=== PATIENT | female | born 1945 | race Caucasian/White ===

== ENCOUNTER 2018-01-25 11:38 | Outpatient (CLI) | payer MEDICARE, MEDICAID ==
--- NOTE | 2018-01-25 13:55 | ULT ---
VENOUS DOPPLER ULTRASOUND OF THE RIGHT LOWER EXTREMITY: TECHNIQUE: Hill-scale with color-flow and spectral Doppler imaging of the deep venous system of the right lower extremity is performed. FINDINGS: There is good flow, compression, and augmentation noted in the right common femoral, femoral, deep fe moral, popliteal, posterior tibial, and greater saphenous veins. IMPRESSION: No evidence of deep venous thrombosis in the right lower extremity. POS: [facility]
== END 2018-01-25 11:39 | disposition home or self-care (01) ==
LOC: ULT 11:38
PROVIDERS: ATTEND Family Medicine
DX: M79.604 Pain in right leg (principal); M79.661 Pain in right lower leg

== ENCOUNTER 2018-02-09 09:32 | Outpatient (CLI) | payer MEDICARE, MEDICAID ==
--- NOTE | 2018-02-09 12:30 | MRI ---
RIGHT TIBIA AND FIBULA MRI WITHOUT CONTRAST: Date: 02/09/18 HISTORY: Calf swelling. No blood clots. COMPARISON: Ultrasound venous dated 01/25/18. FINDINGS: The patient was unable to receive contrast due to her GFR being less than 30. Bones: No fracture. No malalignment. No periosteal new bone formation. No periosteal inflammation. The medul edvin signal is normal. Cortical signal is normal. No fracture. No malalignment. Muscles: There is normal appearance of the intermuscular fat and intramuscular fat. No evidence of loss of the normal intermuscular fat signal to suggest a compartment syndrome. Soft Tissues: There is extensive circumferential soft tissue swelling suggesting cellulitis or lymphedema. IMPRESSION: Extensive superficial soft tissue swelling concerning for cellulitis or lymphedema. No dilatation of the superficial draining veins. No evidence for deep fasciitis or swelling. POS: [facility]
== END 2018-02-09 09:33 | disposition home or self-care (01) ==
LOC: MRI 09:32
PROVIDERS: ATTEND Family Medicine
DX: M79.661 Pain in right lower leg (principal); M79.89 Other specified soft tissue disorders
CPT/HCPCS: 82565

== ENCOUNTER 2018-12-10 12:39 | Outpatient (CLI) | payer MEDICARE, MEDICAID ==
--- NOTE | 2018-12-10 14:28 | ULT ---
LEFT LOWER EXTREMITY VENOUS DUPLEX ULTRASOUND WITH COLOR AND SPECTRAL DOPPLER IMAGING: HISTORY: Left leg swelling and edema. FINDINGS: Exam performed from groin to ankle including visualization of the greater saphenous, common femoral, superficial femoral, or profunda femoral, popliteal, trifurcation, and posterior tibial vein regions. There is phasic flow at all levels with normal compressibility and normal augmentation. No intralu fritz thrombus. IMPRESSION: No evidence for deep venous thrombosis. POS: [facility]
== END 2018-12-10 12:40 | disposition home or self-care (01) ==
LOC: BICULT 12:39
PROVIDERS: ATTEND Family Medicine
DX: M79.89 Other specified soft tissue disorders (principal)

== ENCOUNTER 2019-02-27 22:16 | Emergency (ER) | payer MEDICARE, MEDICAID ==
[2019-02-27 23:15] LABS: #Eosinphils 0.1 thou/uL (0.0-0.7); #Lymphocytes 1.6 thou/uL (1.20-3.40); #Monocytes 0.6 thou/uL (0.11-0.59); #Neutrophils 2.6 thou/uL (1.40-6.50); %Basophils 0.8 % (0.0-1.0); %Eosinophils 2.3 % (0.0-10.0); %Lymphocytes 32.4 % (21.0-51.0); %Monocytes 11.4 % (0.0-10.0); %Neutrophils 53.2 % (42.0-75.0); Hemoglobin 14.2 g/dL (12.0-16.0); Mean Corpuscular HGB CONC 32.6 g/dL (32.0-36.0); Mean Corpuscular Hemoglobin 33.4 pg (27.0-31.0); Mean Platelet Volume 6.7 fL (7.4-10.4); Platelet Count 182 thou/uL (130-400); RBC Distribution Width 13.4 % (11.5-14.5); Red Blood Cell (RBC) Count 4.25 mill/uL (4.20-5.40); White Blood Cell (WBC) Count 4.9 thou/uL (4.8-10.8)
[2019-02-27 23:27] LABS: Phosphorus 3.2 mg/dL (2.3-4.7)
[2019-02-27 23:29] LABS: ALT (SGPT) Less than 7 U/L (8-55); AST (SGOT) 9 U/L (5-34); Albumin 3.5 g/dL (3.4-4.8); Alkaline Phosphatase 49 U/L (40-150); Anion Gap 14 mmol/L (10-20); BUN (Urea Nitrogen) 15 mg/dL (9.8-20.1); Bilirubin, Total 0.3 mg/dL (0.2-1.2); Calc. Creatinine Clearance 0 mL/min (70-130); Calcium 9.5 mg/dL (7.8-10.44); Carbon Dioxide 28 mmol/L (23-31); Chloride 102 mmol/L (98-107); Estimated GFR-MDRD 35; Globulin 3.2 g/dL (2.4-3.5); Glucose 86 mg/dL (83-110); Magnesium 1.9 mg/dL (1.6-2.6); Potassium 4.3 mmol/L (3.5-5.1); Protein, Total 6.7 g/dL (6.0-8.3); Sodium 140 mmol/L (136-145)
--- NOTE | 2019-02-27 23:33 | RAD ---
XR Chest Pa Lat STANDARD History: Chest palpitations Comparison: Radiograph 2015 Findings: Heart size is enlarged. No pneumothorax or effusion. Multiple lumbar spine compression defo rmities containing cement. Scarring in the lung apices. Calcified granuloma left upper lobe. Remote left rib fractures. Impression: Chronic findings. No acute intrathoracic abnormality.
== END 2019-02-28 00:31 | disposition home or self-care (01) ==
LOC: ERS 22:16
DX: R00.2 Palpitations (principal); I10 Essential (primary) hypertension; G43.909 Migraine, unspecified, not intractable, without status migrainosus; I25.10 Atherosclerotic heart disease of native coronary artery without angina pectoris; K21.9 Gastro-esophageal reflux disease without esophagitis; J44.9 Chronic obstructive pulmonary disease, unspecified; F31.9 Bipolar disorder, unspecified; F17.210 Nicotine dependence, cigarettes, uncomplicated; Z79.899 Other long term (current) drug therapy; Z79.01 Long term (current) use of anticoagulants; Z79.51 Long term (current) use of inhaled steroids; Z86.73 Personal history of transient ischemic attack (TIA), and cerebral infarction without residual deficits
CPT/HCPCS: 36415; 71046; 80053; 83735; 83880; 84100; 84484; 85025; 93005

== ENCOUNTER 2019-03-04 17:16 | Emergency (ER) | payer MEDICARE, MEDICAID ==
--- NOTE | 2019-03-04 18:03 | CT ---
CT BRAIN WITHOUT CONTRAST: 03/04/19 HISTORY: Unwitnessed fall, altered mental status, laceration to left eye. FINDINGS: Comparison made to exam of 02/17/14. Changes of cortical atrophy, chronic small vessel ischemic disease and old infarctions in the right f rontal and posterior parietal lobes and old infarction in the basal ganglia are again seen. The ventr icular size is appropriate and the basilar cisterns patent. No evidence of acute infarct, hemorrhage, midline shift or abnormal extra-axial fluid collections seen. The bony calvarium is intact. The visu alized paranasal sinuses and mastoid air cells are well aerated. IMPRESSION: Chronic changes. No CT evidence of acute intracranial process. POS: [facility]
[2019-03-04 18:31] LABS: #Eosinphils 0.1 thou/uL (0.0-0.7); #Lymphocytes 1.2 thou/uL (1.20-3.40); #Monocytes 0.5 thou/uL (0.11-0.59); #Neutrophils 3.3 thou/uL (1.40-6.50); %Basophils 0.9 % (0.0-1.0); %Eosinophils 1.7 % (0.0-10.0); %Lymphocytes 24.2 % (21.0-51.0); %Monocytes 9.2 % (0.0-10.0); %Neutrophils 64.1 % (42.0-75.0); Hemoglobin 15.2 g/dL (12.0-16.0); Mean Corpuscular HGB CONC 32.7 g/dL (32.0-36.0); Mean Corpuscular Hemoglobin 33.2 pg (27.0-31.0); Mean Platelet Volume 7.1 fL (7.4-10.4); Platelet Count 168 thou/uL (130-400); Red Blood Cell (RBC) Count 4.58 mill/uL (4.20-5.40); White Blood Cell (WBC) Count 5.1 thou/uL (4.8-10.8)
[2019-03-04 18:35] LABS: Bilirubin Negative (Negative); Blood, Urine Negative (Negative); Clarity Clear (Clear); Glucose, Urine (Dipstick) Normal (Negative); Leukocyte Negative Leu/uL (Negative); Nitrite Negative (Negative); Protein, Urine (Dipstick) 70 mg/dL (Neg-Trace); RBC/HPF 0-3 HPF (0-3); Squamous Epithelial 0-3 HPF (0-3); Urobilinogen Normal mg/dL (Less than 2); WBC/HPF 0-3 HPF (0-3)
[2019-03-04 18:44] LABS: Bacteria/HPF 1+ HPF (None Seen)
[2019-03-04 18:53] LABS: ALT (SGPT) Less than 7 U/L (8-55); AST (SGOT) 10 U/L (5-34); Albumin 3.6 g/dL (3.4-4.8); Alkaline Phosphatase 46 U/L (40-150); Anion Gap 14 mmol/L (10-20); BUN (Urea Nitrogen) 18 mg/dL (9.8-20.1); Bilirubin, Total 0.4 mg/dL (0.2-1.2); Calc. Creatinine Clearance 0 mL/min (70-130); Calcium 8.9 mg/dL (7.8-10.44); Carbon Dioxide 24 mmol/L (23-31); Chloride 101 mmol/L (98-107); Estimated GFR-MDRD 29; Globulin 2.8 g/dL (2.4-3.5); Glucose 107 mg/dL (83-110); Potassium 4.2 mmol/L (3.5-5.1); Protein, Total 6.4 g/dL (6.0-8.3); Sodium 135 mmol/L (136-145)
[2019-03-04] MEDS ORDERED: traMADol HCl 50 MG TAB ONE (20:42)
== END 2019-03-04 22:25 | disposition home or self-care (01) ==
LOC: ERS 17:16
DX: S00.12XA Contusion of left eyelid and periocular area, initial encounter (principal); G43.909 Migraine, unspecified, not intractable, without status migrainosus; I25.10 Atherosclerotic heart disease of native coronary artery without angina pectoris; K21.9 Gastro-esophageal reflux disease without esophagitis; I10 Essential (primary) hypertension; Z86.73 Personal history of transient ischemic attack (TIA), and cerebral infarction without residual deficits; J44.9 Chronic obstructive pulmonary disease, unspecified; F31.9 Bipolar disorder, unspecified; F17.210 Nicotine dependence, cigarettes, uncomplicated; W18.30XA Fall on same level, unspecified, initial encounter
CPT/HCPCS: 36415; 51701; 70450; 80053; 81003; 81015; 84484; 85025; 93005; A4353

== ENCOUNTER 2019-06-12 19:33 | Inpatient (IN) | payer MEDICARE, MEDICAID ==
--- NOTE | 2019-06-12 20:14 | RAD ---
XR Chest 1 View Portable History: Chest pain Comparison: Radiograph April 01, 2019 Findings: Heart size is enlarged. Exam is limited due to rightward patient rotation. Mild vascular ca lcifications. Old left rib fractures. Impression: Cardiomegaly otherwise unremarkable exam.
[2019-06-12 20:30] LABS: Hemoglobin 13.8 g/dL (12.0-16.0); Mean Corpuscular HGB CONC 32.9 g/dL (32.0-36.0); Mean Corpuscular Hemoglobin 33.6 pg (27.0-31.0); Mean Platelet Volume 6.6 fL (7.4-10.4); Platelet Count 170 thou/uL (130-400); RBC Distribution Width 14.2 % (11.5-14.5); Red Blood Cell (RBC) Count 4.11 mill/uL (4.20-5.40); White Blood Cell (WBC) Count 6.1 thou/uL (4.8-10.8)
[2019-06-12 20:55] LABS: ALT (SGPT) Less than 7 U/L (8-55); AST (SGOT) 10 U/L (5-34); Albumin 3.4 g/dL (3.4-4.8); Alkaline Phosphatase 48 U/L (40-110); Anion Gap 16 mmol/L (10-20); BUN (Urea Nitrogen) 20 mg/dL (9.8-20.1); Bilirubin, Total 0.3 mg/dL (0.2-1.2); Calc. Creatinine Clearance 0 mL/min (70-130); Carbon Dioxide 24 mmol/L (23-31); Chloride 103 mmol/L (98-107); Estimated GFR-MDRD 35; Globulin 3.1 g/dL (2.4-3.5); Glucose 83 mg/dL (83-110); Potassium 4.5 mmol/L (3.5-5.1); Protein, Total 6.5 g/dL (6.0-8.3); Sodium 138 mmol/L (136-145)
[2019-06-12 20:56] LABS: Band 13 % (5-11); Eosinophils 3 % (0-10); Lymphocytes 26 % (21-51); MDiff Complete? YES; Macrocytosis SLIGHT = 6-15 cells (100X) (0-5/hpf); Monocytes 5 % (0-10); Neutrophil 35 % (42-75); Platelet Morphology Comment Appears Adequate; Polychromasia SLIGHT = 2-3 cells (100X) (0-2/hpf); Reactive Lymphocytes 18 % (0-10)
[2019-06-12] MEDS ORDERED: Aspirin Chewable 81 MG TAB ONE (21:12)
[2019-06-12 21:21] LABS: CKMB 1.5 ng/mL (0-6.6)
[2019-06-12] MEDS ORDERED: Enoxaparin Sodium 80 MG/0.8 ML SYRINGE ONE (21:52)
[2019-06-13] MEDS ORDERED: hydrALAZINE 20 MG/ML VIAL SLOW IVP PRN (03:13)
[2019-06-13] MEDS ORDERED: Ipratropium Bromide 2.5 ml Neb NEB PRN (03:13)
[2019-06-13] MEDS ORDERED: Albuterol Sulfate 2.5 mg/3 ml Neb NEB PRN (03:13)
[2019-06-13 03:39] LABS: Troponin I 0.099 ng/mL (< 0.028)
--- NOTE | 2019-06-13 04:07 | HP ---
PRIMARY CARE PHYSICIAN: Dr. Arciniega. CHIEF COMPLAINT: Pain in the left side of her chest. HISTORY OF PRESENT ILLNESS: Ms. Dimas is a pleasant 73-year-old female, who has a history of hypertension and peripheral vascular disease. She came to the emergency room, because she was afraid about a mass in her breast. She says that she noticed a pain more or less just in the axillary region on the left side. She says it kind of shot went through to the middle part of her chest. Sometimes she describes it as a pain and sometimes she does not. She says it was kind of a pulling-like sensation, and she denies any trauma. No falls to the area. She does not feel like it is the pain that she had when she had to have bypass surgery about 4 to 5 years ago. At that time, her only symptom was shortness of breath. She denies any nausea, no vomiting, no diaphoresis. She has had a cough off and on, but otherwise no complaints. She says that Dr. Arciniega had set up a mammogram for her which would be coming up in the next couple of weeks, but when she had this pain, she decided to come in. Her last mammogram she says was "years ago", and she has not had any problems with the heart in fact until in her mind was just a few months ago as she did not consider having the bypass surgery "heart problem". With regard to the review of systems, all systems were reviewed and were negative except for that mentioned in the history of present illness. 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 PAST SURGICAL HISTORY: She has had an appendectomy, bypass surgery, tonsillectomy, carotid endarterectomy, and stent placed. She has an arterial stent in her left lower extremity and an esophageal dilatation and a Phillip fundoplication. SOCIAL HISTORY: She lives in assisted living. She smokes a pack a day for at least 50 years. She says that she enjoys smoking and does not intend to quit. She denies any alcohol use or drug use. Her code status is full code. However, she would not want to be on life support for a long time, and she has not designated a surrogate decision maker. She says she has not seen her daughter or grandchildren in over 4 to 5 years. FAMILY HISTORY: She said her sister had an aneurysm. CURRENT MEDICATIONS: Include, 1. Alprazolam 0.25 mg daily. 2. Amlodipine 5 mg two tabs once a day. 3. Plavix 75 mg daily. 4. Hydralazine 50 mg twice a day. 5. Levothyroxine 100 mcg p.o. daily. 6. Metoprolol succinate extended release 25 mg daily. 7. Simvastatin 20 mg daily. 8. Extra-strength Tylenol 500 mg q.4 hours as needed. 9. Nexium 20 mg daily. 10. daily. 11. Symbicort 160/4.5 mcg two puffs twice a day. 12. Fentanyl patch 50 mcg every 3 days. 13. Lidoderm topical. 14. Tramadol 50 mg 1 to 2 tablets twice a day. 15. Docusate sodium 100 mg 1 to 3 capsules as needed. 16. Itrapromium inhaled 1 to 4 times a day. 17. Triamcinolone acetonide topical. 18. Albuterol sulfate nebulizer 1 to 4 times a day. 19. Diphenhist 25 mg daily. PHYSICAL EXAMINATION: GENERAL: She is alert and oriented. She appears to be in no acute distress. She is well-developed, but does appear chronically ill. VITAL SIGNS: Blood pressure is 127/58, heart rate 68, respiratory rate of 18, and temperature is 98.4. HEENT: Her pupils are equal, round, and reactive. Extraocular muscles are intact. Sclerae are anicteric. Throat, no erythema, no exudates. NECK: There is no adenopathy, but she has bilateral bruits. LUNGS: She has some coarse breath sounds and some very high-pitched wheezing almost stridor like sound in both lungs and some rales at the left base. CARDIOVASCULAR: She has a normal S1, S2. She has a grade 2/6 systolic murmur heard over most all of the precordium, and it was radiating to the axilla. ABDOMEN: Soft, nontender, and nondistended. Positive for bowel sounds. No rebound. No guarding, but she did have an audible abdominal bruit as well. EXTREMITIES: There is no clubbing or cyanosis. No edema. No joint effusions. NEUROLOGIC: Her cranial nerves are intact. Her muscle strength is 5/5. SKIN AND INTEGUMENT: She has some hyperemia of both lower extremities and changes of chronic venous stasis as well as extremely dry friable like skin, and she has some hyper-pigmented nodules on the lower extremity as well on the left and the right, multiple on the right, on the medial aspect of her lower extremities, as well as her right upper extremity on the forearm. LAB RESULTS: Her white blood cell count 6.1, hemoglobin 13.8, hematocrit is 42.0, and platelet count was 170. Sodium 138, potassium 4.5, chloride is 103, CO2 is 24, BUN of 20, creatinine 1.45, and glucose is 83. Troponin is less than 0.0146. On her chest x-ray, there is an evidence of cardiomegaly, but no infiltrates or effusions. This is by my reading. She also had an EKG showing sinus rhythm, the rate was 68. She had a T-wave inversion and aVL and some poor R-wave progression from V1 to V2. ASSESSMENT: 1. This is a 73-year-old female, who presents with atypical chest pain that the patient is concerned could be related to a lesion in the left breast. On her breast exam, there was a palpable, approximately 1 cm mass; however, it was easily movable, was not fixed. There is no warmth, and it is possible that her pain could be related to the breast mass. If this represents a fibrocystic-like disease. However, this is a little less likely in a patient of her age and as a result, we will need to get a diagnostic mammogram as well as an ultrasound. If this can be done in the hospital and potentially a biopsy. Also, since she does have a history of fairly severe coronary artery disease as well as vascular disease as well as having an elevated troponin on this admission, we will consult her java spring developer to see whether or not she needs a test to look at ischemic heart disease. 2. Abdominal bruit. We will get an abdominal ultrasound to see the extent of the blockage to the descending aorta. 3. Chronic obstructive pulmonary disease. We will continue Symbicort as well as DuoNebs. 4. Hypertension. We will need to reconcile and restart her home medications as indicated. Job ID: [id number]
[2019-06-13 04:52] LABS: Anion Gap 14 mmol/L (10-20); BUN (Urea Nitrogen) 18 mg/dL (9.8-20.1); Calc. Creatinine Clearance 0 mL/min (70-130); Calcium 9.2 mg/dL (7.8-10.44); Carbon Dioxide 26 mmol/L (23-31); Chloride 105 mmol/L (98-107); Estimated GFR-MDRD 42; Glucose 82 mg/dL (83-110); Potassium 4.8 mmol/L (3.5-5.1); Sodium 140 mmol/L (136-145)
[2019-06-13] MEDS ORDERED: fentaNYL 50 mcg/hour Patch TD SCH (05:00)
[2019-06-13] MEDS ORDERED: Nicotine 14 MG PATCH ONE (05:13)
[2019-06-13] MEDS: Nicotine 14 MG PATCH TD SCH (05:25)
[2019-06-13 05:48] LABS: Band 2 % (5-11); Eosinophils 4 % (0-10); Hemoglobin 13.6 g/dL (12.0-16.0); Lymphocytes 37 % (21-51); MDiff Complete? YES; Mean Corpuscular HGB CONC 33.5 g/dL (32.0-36.0); Mean Corpuscular Hemoglobin 33.9 pg (27.0-31.0); Monocytes 12 % (0-10); Myelocyte 1 % (0-0); Neutrophil 41 % (42-75); Platelet Count 188 thou/uL (130-400); RBC Distribution Width 14.2 % (11.5-14.5); Reactive Lymphocytes 2 % (0-10); Red Blood Cell (RBC) Count 4.02 mill/uL (4.20-5.40); White Blood Cell (WBC) Count 6.2 thou/uL (4.8-10.8)
[2019-06-13] MEDS ORDERED: Mometasone/Formoterol 120 PUFF INHALER ONE (06:39)
[2019-06-13] MEDS: Enoxaparin Sodium 30 MG/0.3 ML SYRINGE SC SCH (08:03)
[2019-06-13] MEDS: Mometasone/Formoterol 120 PUFF INHALER INH SCH ×2 (08:23→19:06)
[2019-06-13] MEDS ORDERED: Acetaminophen 325 MG/10.15 ML UDCUP ONE (10:12)
[2019-06-13] MEDS ORDERED: Acetaminophen 325 MG TAB ONE (10:13)
[2019-06-13] MEDS: Acetaminophen 325 MG TAB PO PRN (10:15)
--- NOTE | 2019-06-13 12:20 | ULT ---
ABDOMINAL AORTIC ULTRASOUND: Date: 06/13/19 HISTORY: Abdominal bruit. FINDINGS: Real-time imaging of the abdominal aorta was performed. There is bowel gas present and patient's body habitus significantly limits detail. The proximal aorta is seen. It is normal in caliber at 1.5 cm. The mid and distal aorta are not visualized. IMPRESSION: Very limited examination due to bowel gas and body habitus. The mid and distal aorta are not visualiz ed. If indicated, CT is recommended. POS: [facility]
--- NOTE | 2019-06-13 14:35 | ULT ---
Sonogram left breast limited HISTORY: Palpable mass. FINDINGS: Heterogeneously dense fibroglandular tissue. Imaging was focused at the 3:00 position of th e left breast in region of palpable concern. No solid or cystic masses. No fluid collections. IMPRESSION: No mass is visible sonographically at the lateral aspect of the left breast in region of palpable concern. Please consider complete diagnostic breast workup, including bilateral diagnostic mammograms, for rahul lutatiana.
[2019-06-13 16:00] VITALS: BMI 23.4
[2019-06-13] MEDS: ALPRAZolam 0.5 MG TAB PO PRN (18:31)
[2019-06-13] MEDS: Clopidogrel Bisulfate 75 MG TAB PO SCH (20:41)
[2019-06-13] MEDS: Amlodipine 5 MG TAB PO SCH (20:41)
[2019-06-14] MEDS: ALPRAZolam 0.5 MG TAB PO PRN ×3 (02:28→23:41)
[2019-06-14] MEDS: Acetaminophen 325 MG TAB PO PRN ×2 (02:28→20:24)
[2019-06-14] MEDS: Nicotine 14 MG PATCH TD SCH (06:48)
[2019-06-14] MEDS: Mometasone/Formoterol 120 PUFF INHALER INH SCH ×2 (07:19→19:12)
[2019-06-14] MEDS: Enoxaparin Sodium 30 MG/0.3 ML SYRINGE SC SCH (09:04)
--- NOTE | 2019-06-14 14:33 | PDOC.HOSPP ---
- Subjective Subjective: Seen and examined. Patient denies chest pain this a.m. Patient states that she sees Dr. Ivory in the clinic. History of coronary artery bypass grafting in 2013. Patient feeling Faith short of breath, requiring oxygen to maintain O2 saturation's. Patient does not wear oxygen home. I reassured the patient of ultrasound of the breast that was negative for mass or lesion. Patient continues to smoke cigarettes daily. All questions answered in detail. - Objective Vital Signs & Weight: Vital Signs (12 hours) Temp Pulse Resp BP BP Pulse Ox 06/14/19 11:35 98.7 F 107 H 20 185/91 H 93 L 06/14/19 07:50 98.6 F 86 18 183/78 H 93 L 06/14/19 07:19 80 14 94 L 06/14/19 04:00 98.0 F 80 16 145/64 H 92 L Weight Weight 168 lb 3.2 oz I&O: 06/13/19 06/14/19 06/15/19 06:59 06:59 06:59 Intake Total 600 Output Total 500 Balance 100 Result Diagrams: 06/13/19 04:12 06/13/19 04:12 Radiology Reviewed by me: Yes Hospitalist ROS - Review of Systems All other systems reviewed; all pertinent +/- noted in HPI/Subj - Medication Medications: Active Medications Generic Name Dose Route Start Last Admin Trade Name Freq PRN Reason Stop Dose Admin Acetaminophen 650 mg 06/13/19 03:13 06/14/19 02:28 Tylenol PO 650 mg Q4H PRN Administration Headache/Fever/Mild Pain (1-3) Alprazolam 0.5 mg 06/13/19 03:13 06/14/19 02:28 Xanax PO 0.5 mg TIDPRN PRN Administration Anxiety Amlodipine Besylate 5 mg 06/13/19 21:00 06/13/19 20:41 Norvasc PO 5 mg QPM CASSY Administration Clopidogrel Bisulfate 75 mg 06/13/19 21:00 06/13/19 20:41 Plavix PO 75 mg QPM CASSY Administration Enoxaparin Sodium 30 mg 06/13/19 09:00 06/14/19 09:04 Lovenox SC 30 mg 0900 CASSY Administration Fentanyl 50 mcg 06/13/19 05:00 06/13/19 05:20 Duragesic TD 50 mcg Q3D CASSY Administration Mometasone Furoate/Formoterol Fumar 1 puff 06/13/19 06:30 06/14/19 07:19 Dulera 200 Mcg/5 Mcg Inhaler INH 1 puff BID-RT CASSY Administration Nicotine 14 mg 06/13/19 05:00 06/14/19 06:48 Nicoderm Patch TD 14 mg Q24HR CASSY Administration - Exam General Appearance: NAD, awake alert Eye: anicteric sclera ENT: normocephalic atraumatic, moist mucosa Neck: supple, symmetric, no lymphadenopathy Heart: no murmur, no gallops, no rubs Respiratory: CTAB, no rales, normal chest expansion, rhonchi (Few scattered), wheezes (faint scatttered) Gastrointestinal: soft, non-tender, non-distended, normal bowel sounds, no guarding, no rigidity Extremities: no edema Skin: no lesions, no rashes Neurological: cranial nerve grossly intact, normal sensation to touch, no focal deficits Musculoskeletal: generalized weakness Psychiatric: normal affect, A&O x 3 Hosp A/P (1) NSTEMI (non-ST elevated myocardial infarction) Code(s): I21.4 - NON-ST ELEVATION (NSTEMI) MYOCARDIAL INFARCTION Status: Acute (2) Chest pain Code(s): R07.9 - CHEST PAIN, UNSPECIFIED Status: Acute (3) Elevated troponin Code(s): R79.89 - OTHER SPECIFIED ABNORMAL FINDINGS OF BLOOD CHEMISTRY Status : Acute (4) GABE (acute kidney injury) Code(s): N17.9 - ACUTE KIDNEY FAILURE, UNSPECIFIED Status: Acute (5) Coronary atherosclerosis of [place] coronary artery Code(s): I25.10 - ATHSCL HEART DISEASE OF [place] CORONARY ARTERY W/O ANG PCTRS Status: Acute (6) Tobacco use disorder Code(s): Z72.0 - TOBACCO USE Status: Acute - Plan Plan: medical unit with telemetry cardiology consultation, recommendations appreciated patient with coronary artery disease with history of coronary artery bypass grafting elevated troponins, though down trending, with chest discomfort type 2 NSTEMI diagnosed blood pressure control patient continues to smoke cigarettes daily, nicotine patch ordered patient is diffusely wheezy, scheduled and PRN doing up therapy continue other home medications as able G.I. prophylaxis DVT prophylaxis
--- NOTE | 2019-06-14 20:20 | CON ---
DATE OF CONSULTATION: 06/14/2019 REASON FOR CONSULTATION: Chest pain. PRIMARY PLATE SETTER: Tam Ivory MD HISTORY OF PRESENT ILLNESS: Ms. Dimas is a very pleasant 73-year-old white female very well known to myself, who comes to the hospital for chest pain. She was seen in the office recently and because she had continued episodes of chest pain despite a normal stress test, she was advised to undergo heart catheterization. She has not been able to schedule this. So far, this was just about a week and a half ago and she decided to come in as she was having pain around her left breast. She states this was similar to what she felt when she did her bypass sometime ago. She was admitted and Cardiology is being consulted for this. PAST MEDICAL HISTORY: 1. Peripheral vascular disease. 2. Hypertension. 3. CVA in the past. 4. COPD. 5. Chronic kidney disease. 6. Palpitations. 7. Descending aorta obstruction. 8. CAD, status post CABG. PAST SURGICAL HISTORY: 1. Appendectomy. 2. CABG. 3. Tonsillectomy. 4. Carotid endarterectomy. 5. Left lower extremity stenting in the past. 6. Esophageal dilatation. 7. Phillip fundoplication. SOCIAL HISTORY: Lives in assisted living. Continues to smoke a pack a day. Does not have intention of quitting. Denies alcohol or drug use. FAMILY HISTORY: Noncontributory. OUTPATIENT MEDICATIONS: Include; 1. Alprazolam. 2. Amlodipine 5 mg two tablets a day. 3. Plavix 75 mg a day. 4. Hydralazine 50 mg twice a day. 5. Levothyroxine 100 mcg a day. 6. Metoprolol succinate 25 mg a day. 7. Simvastatin 20 mg a day. 8. Tylenol extra-strength p.r.n. 9. Nexium 20 a day. 10. Symbicort. 11. Fentanyl patch. 12. Lidoderm topical. 13. Tramadol p.r.n. 14. Docusate. 15. Ipratropium. 16. Triamcinolone. 17. Albuterol. 18. Diphenhydramine. ALLERGIES: 1. CODEINE. 2. . 3. BACTRIM. REVIEW OF SYSTEMS: A 12-point review of systems was done and was all negative unless stated in the history of present illness. PHYSICAL EXAMINATION: VITAL SIGNS: Temperature 98.1, pulse 97, respiratory rate 18, saturating 95% on room air, blood pressure 131/75. GENERAL: Awake, alert, oriented x3. No distress. HEENT: Normocephalic and atraumatic. NECK: Supple. LUNGS: Reduced breath sounds bilaterally. CARDIOVASCULAR: S1 and S2. No S3 or S4. There is a grade 2/6 systolic murmur at the right upper sternal border. ABDOMEN: Soft. Positive bowel sounds. EXTREMITIES: No edema. SKIN: Warm and dry. LABORATORY DATA: Laboratory work was reviewed. CBC with a white count of 6, hemoglobin of 13, hematocrit of 40, platelet count of 188. Chemistries are unremarkable. Troponin indeterminate range of 0.14, 0.15, 0.09. Creatinine 1.24, GFR was 42. ASSESSMENT/PLAN: 1. Chest pain, concern for angina. She has a history of coronary artery disease however, talking with Ms. Dimas, I did offer doing a heart catheterization while she is in the hospital. She tells me right now that she has made up her mind that she does not really want to go through any more procedures. She would like to just be left alone, put her medications and treat this conservatively as much as possible. I think this is reasonable in her situation. I would add nitrate as her blood pressure will allow this to try to control this, if this was to be angina. She agrees to possibly in the future agree to heart catheterization. This will help her the way she feels, but currently she wants to be left alone and do medical therapy. 2. We will add Imdur 30 mg a day. Thank you for letting us participate in the care of your patient. We will sign off. Please call with any questions. We will see in the office as scheduled. Job ID: [id number]
[2019-06-14] MEDS: Clopidogrel Bisulfate 75 MG TAB PO SCH (20:21)
[2019-06-14] MEDS: Amlodipine 5 MG TAB PO SCH (20:21)
[2019-06-15] MEDS ORDERED: diphenhydrAMINE 25 MG CAP PO PRN (00:33)
[2019-06-15] MEDS: Acetaminophen 325 MG TAB PO PRN ×2 (00:43→13:37)
--- NOTE | 2019-06-15 05:31 | PDOC.EVN ---
Event Note - Event Note Event Note: Pt had brief run of tachyarrhyhtmia on tele monitor. Will check electrolytes
[2019-06-15] MEDS: Nicotine 14 MG PATCH TD SCH (05:36)
[2019-06-15 07:03] LABS: Magnesium 1.6 mg/dL (1.6-2.6); Phosphorus 2.7 mg/dL (2.3-4.7)
[2019-06-15] MEDS: Mometasone/Formoterol 120 PUFF INHALER INH SCH (07:19)
[2019-06-15] MEDS ORDERED: Isosorbide Mononitrate (ER) 30 MG TAB PO SCH (09:00)
[2019-06-15] MEDS: ALPRAZolam 0.5 MG TAB PO PRN (09:17)
[2019-06-15] MEDS: Enoxaparin Sodium 30 MG/0.3 ML SYRINGE SC SCH (09:17)
[2019-06-15 12:08] VITALS: BP 149/90; TEMP 98.2
--- NOTE | 2019-06-15 17:59 | PDOC.CPN ---
- Subjective Date: 06/15/19 Time: 12:45 - Review of Systems General: denies: fever/chills, weight/appetite/sleep changes, night sweats, fatigue Respiratory: denies: cough, congestion, shortness of breath, exercise intolerance Cardiovascular: denies: chest pain, palpitation, edema, paroxysmal nocturnal dyspnea, orthopnea Gastrointestinal: denies: nausea, vomiting, diarrhea, constipation, abd pain, GI bleeding Musculoskeletal: denies: pain, tenderness, stiffness, swelling, arthritis/ arthralgias Neurological: denies: numbness, syncope, seizure, weakness - Objective Allergies/Adverse Reactions: Allergies Allergy/AdvReac Type Severity Reaction Status Date / Time codeine Allergy Mild Rash Verified 03/04/17 22:35 sulfamethoxazole Allergy Mild Rash Verified 03/04/17 22:35 [From Bactrim] trimethoprim [From Bactrim] Allergy Mild Rash Verified 03/04/17 22:35 Vital Signs & Weight: Vital Signs Temp Pulse Resp BP BP Pulse Ox 06/15/19 12:00 98.2 F 98 16 149/90 H 95 06/15/19 07:53 98.0 F 92 17 173/81 H 96 06/15/19 07:21 91 L 06/15/19 07:20 16 91 L 06/15/19 07:19 69 16 91 L Weight 167 lb 5 oz - Physical Exam General: alert & oriented x3 HEENT: mucus membranes moist Neck: supple neck Cardiac: regular rate and rhythm Lungs: decreased breath sounds Neuro: grossly intact Abdomen: active bowel sounds Extremities: no edema Skin: clear Musculoskeletal: no pain - Labs Result Diagrams: 06/13/19 04:12 06/13/19 04:12 Troponin/CKMB CK-MB (CK-2) 1.5 ng/mL (0-6.6) 06/12/19 20:18 Troponin I 0.099 ng/mL (< 0.028) H 06/13/19 03:00 - Telemetry Sinus rhythms and dysrhythmias: other (NSR< Non sustained SVT.) - Assessment/Plan Assessment/Plan: 1. Chest pain 2. Non sustained SVT 3. CAD, S/P CABG PLAN: - Continue current meds. - BB already on board for NS SV - Continue Imdur 30 mg daily. - May discharge back to [facility].
--- NOTE | 2019-06-16 04:07 | DIS ---
DATE OF ADMISSION: 06/12/2019 DATE OF DISCHARGE: 06/15/2019 REASON FOR HOSPITALIZATION: Chest pain. SIGNIFICANT FINDINGS: The patient was found to have elevated troponins and Cardiology was consulted for further recommendations. PROCEDURES PERFORMED AND TREATMENTS RENDERED: The patient had maximum medical therapy including she was admitted to medical unit, telemetry, had symptomatic medications for chest pain. The patient was seen and evaluated by Cardiology, who recommended cardiac catheterization-the patient stating that she does not want to pursue aggressive measures. She is not interested in cardiac catheterization, she is not interested in any other surgical procedures or any other interventions. The patient states that she wants to become a do not resuscitate and do not intubate status and she would like to have medical management alone. Cardiology agreeing that with the patient's age and medical comorbidities, less aggressive measures shall be pursued. The patient was recommended safe for discharge by Cardiology with followup in the outpatient clinic in the next coming weeks. CONDITION ON DISCHARGE: Stable. SPECIFIC INSTRUCTIONS FOR THE PATIENT/FAMILY: 1. The patient is recommended to take all medications as directed. 2. The patient is recommended to follow up with primary care physician in the next 5 to 7 days. 3. The patient is recommended to follow up with Cardiology in the next 1 to 2 weeks. 4. The patient is recommended to follow up with outpatient mammogram if she is interested in pursuing aggressive measures for a possible breast lesion-however, the patient states that she is not interested in aggressive measures at this time. 5. The patient is recommended to return to acute care hospital immediately if signs or symptoms return, worsen, or any other new symptoms occur. DISCHARGE MEDICATIONS: Please see full discharge medication list for details and there was only one change to her medications. 1. Isosorbide mononitrate (Imdur extended release) 30 mg one tablet p.o. daily-this was started by Cardiology to improve chest pain symptoms and it was sent to her preferred pharmacy. Please see all other home medications from discharge medication reconciliation as they have not changed. Greater than 33 minutes spent coordinating care and discharge process for this patient. Job ID: [id number]
--- NOTE | 2019-06-16 23:31 | PQF ---
YOLANDA MORRISON ERIK [id number] [facility] [id number] CLINICAL DOCUMENTATION CLARIFICATION FORM: POST DISCHARGE Addendum to original discharge summary date: ____ Late entry note date: __ DATE: 06/16/19 ATTN: Triston Brito Please exercise your independent, professional judgment in responding to the clarification form. Clinical indicators are provided on the bottom of this form for your review Can you please further specify the Etiology of Chest pain? Please check appropriate box(s): [ ] Angina [ ] Atypical chest pain [ ] NSTEMI type 1 [ XX ] NSTEMI type 2 (please specify etiology) [ ] Other diagnosis [ ] Unable to determine In addition, please specify: Present on Admission (POA): [ XX ] Yes [ ] No [ ] Unable to determine For continuity of documentation, please document condition throughout progress notes and discharge summary. Thank You. CLINICAL INDICATORS - SIGNS / SYMPTOMS /LABS ED Provider pg.4- NSTEMI H and P pg.3- presents with atypical chest pain that the patient concerned could be related to lesion in the left breast Consult Dr. Ivory pg. Consult Dr. Ivory pg.3- Chest pain , concern for angina Cardiology PN 06/15 pg.2- Non sustained VT Hospitalist PN 06/14 pg.4- elevated troponin, though down trending, with chest discomfort Hospitalist PN 06/14 pg.4- type 2 NSTEMI diagnosed RISK FACTORS COPD- H and P pg.1 Hypertension- H and P pg.1 Smokes a pack per day- H and p pg.1 CAD, status post CABG- Consult Dr. Ivory pg.1 TREATMENTS: Cardiology Consult- Dr. Ivory 06/14 Imdur 30mg a day- Consult Dr. Ivory pg.3 EKG- ED provider Report pg.4 Aspirin 81mg PO- SEP 27 Lovenox 80 mg IV- SEP 27 (This form is maintained as a part of the permanent medical record) 2014 [employer]. All Rights Reserved Mohit [email or web address] [not provided] MTDD
--- NOTE | 2019-06-17 20:20 | PQF ---
YOLANDA MORRISON MARLA CARTER PATTON [id number] FRANCIS- FRANCIS [id number] CLINICAL DOCUMENTATION CLARIFICATION FORM: POST DISCHARGE Addendum to original discharge summary date: ____ Late entry note date: __ DATE: 06/17/19 ATTN: Aniceto Brito Please exercise your independent, professional judgment in responding to the clarification form. Clinical indicators are provided on the bottom of this form for your review Can you please further clarify the etiology of Type 2 MN? Please check appropriate box(s): [ XX ] Angina [ ] Acute kidney injury [ ] Atypical chest pain [ ] Other diagnosis please specify [ ] Unable to determine In addition, please specify: Present on Admission (POA): [ XX ] Yes [ ] No [ ] Unable to determine CLINICAL INDICATORS - SIGNS / SYMPTOMS / LABS ED Provider pg.4- NSTEMI H and P pg.3- presents with atypical chest pain that the patient concerned could be related to lesion in the left breast Consult Dr. Ivory pg. Consult Dr. Ivory pg.3- Chest pain , concern for angina Cardiology PN 06/15 pg.2- Non sustained SVT Hospitalist PN 06/14 pg.4- elevated troponin, though down trending, with chest discomfort Hospitalist PN 06/14 pg.4- type 2 NSTEMI diagnosed Laboratory- 06/12 1.45H, 06/13- 1.24H RISKS: COPD- H and P pg.1 Hypertension- H and P pg.1 Smokes a pack per day- H and p pg.1 CAD, status post CABG- Consult Dr. Ivory pg.1 CVA in the past- Consult Dr. Ivory CKD- Consult Dr. Ivory pg.1 TREATMENTS: Cardiology Consult- Dr. Ivory 06/14 Imdur 30mg a day- Consult Dr. Ivory pg.3 EKG- ED provider Report pg.4 Aspirin 81mg PO- SEP 27 Lovenox 80 mg IV- SEP 27 (This form is maintained as a part of the permanent medical record) 2014 [employer]. All Rights Reserved [email or web address] [not provided] MTDD
== END 2019-06-15 14:08 | disposition home or self-care (01) | DRG 281 ==
LOC: ERS 19:33 → ERHOLD 23:04 → 2NO 06-13 15:47
PROVIDERS: ADMIT Internal Medicine; ATTEND Internal Medicine
DX: I25.119 Atherosclerotic heart disease of native coronary artery with unspecified angina pectoris (principal); I21.A1 Myocardial infarction type 2; N17.9 Acute kidney failure, unspecified; I47.1 Supraventricular tachycardia; R07.9 Chest pain, unspecified; Z66 Do not resuscitate; F17.210 Nicotine dependence, cigarettes, uncomplicated; G43.909 Migraine, unspecified, not intractable, without status migrainosus; M81.0 Age-related osteoporosis without current pathological fracture; I73.9 Peripheral vascular disease, unspecified; I12.9 Hypertensive chronic kidney disease with stage 1 through stage 4 chronic kidney disease, or unspecified chronic kidney disease; N18.9 Chronic kidney disease, unspecified; F31.9 Bipolar disorder, unspecified; K21.9 Gastro-esophageal reflux disease without esophagitis; J44.9 Chronic obstructive pulmonary disease, unspecified; Z53.29 Procedure and treatment not carried out because of patient's decision for other reasons; Z86.73 Personal history of transient ischemic attack (TIA), and cerebral infarction without residual deficits; Z90.49 Acquired absence of other specified parts of digestive tract; Z98.51 Tubal ligation status; Z88.5 Allergy status to narcotic agent; Z95.1 Presence of aortocoronary bypass graft; Z79.890 Hormone replacement therapy; Z79.899 Other long term (current) drug therapy; Z79.51 Long term (current) use of inhaled steroids; Z88.2 Allergy status to sulfonamides; Z88.1 Allergy status to other antibiotic agents; Z79.02 Long term (current) use of antithrombotics/antiplatelets
CPT/HCPCS: 36415; 36416; 71045; 76706; 80048; 80053; 82553; 83735; 84100; 84484; 85025; 93005; 94640; 96372; J1650; J7620; Q0163

== ENCOUNTER 2019-07-01 14:33 | Outpatient (CLI) | payer MEDICARE, MEDICAID ==
--- NOTE | 2019-07-01 16:05 | MMO ---
Bilateral MAMMO Bilat Screen [facility]DI+RAFAT. CLINICAL HISTORY: Patient is 73 years old and is seen for screening. The patient has no family history of breast cancer. The patient has no personal history of cancer. VIEWS: The views performed were: bilateral craniocaudal with tomosynthesis and bilateral mediolateral oblique with tomosynthesis. FILMS COMPARED: The present examination has been compared to a prior imaging study performed on 06/13/2019. This study has been interpreted with the assistance of computer-aided detection. MAMMOGRAM FINDINGS: There are scattered fibroglandular densities. There are innumerable benign appearing calcifications seen in both breasts. There are no suspicious masses, suspicious calcifications, or new areas of architectural distortion. IMPRESSION: THERE IS NO MAMMOGRAPHIC EVIDENCE OF MALIGNANCY. A ROUTINE FOLLOW-UP MAMMOGRAM IN 1 YEAR IS RECOMMENDED. THE RESULTS OF THIS EXAM WERE SENT TO THE PATIENT. ACR BI-RADS Category 2 - Benign finding MAMMOGRAPHY NOTE: 1. A negative mammogram report should not delay a biopsy if a dominant of clinically suspicious mass is present. 2. Approximately 10% to 15% of breast cancers are not detected by mammography. 3. Adenosis and dense breasts may obscure an underlying neoplasm. Reported by: EMILY RAINEY MD Electonically Signed: [id number]
== END 2019-07-01 14:34 | disposition home or self-care (01) ==
LOC: BICMAMMO 14:33
PROVIDERS: ATTEND Family Medicine
DX: Z12.31 Encounter for screening mammogram for malignant neoplasm of breast (principal)
CPT/HCPCS: 77063; 77067

== ENCOUNTER 2019-11-06 01:02 | Emergency (ER) | payer MEDICARE, OTHER ==
[2019-11-06 01:41] LABS: Bacteria/HPF None Seen HPF (None Seen); Bilirubin Negative (Negative); Blood, Urine Negative (Negative); Clarity Turbid (Clear); Glucose, Urine (Dipstick) Normal (Negative); Leukocyte 500 Leu/uL (Negative); Nitrite Negative (Negative); Protein, Urine (Dipstick) 50 mg/dL (Neg-Trace); RBC/HPF 0-3 HPF (0-3); Squamous Epithelial 0-3 HPF (0-3); Urobilinogen Normal mg/dL (Less than 2); WBC/HPF Greater than 50 HPF (0-3); Yeast-Budding 2+ HPF (None Seen)
[2019-11-06 01:45] LABS: Mean Corpuscular HGB CONC 31.2 g/dL (32.0-36.0); Mean Corpuscular Hemoglobin 31.9 pg (27.0-31.0); RBC Distribution Width 15.7 % (11.5-14.5); Red Blood Cell (RBC) Count 4.38 mill/uL (4.20-5.40); White Blood Cell (WBC) Count 7.5 thou/uL (4.8-10.8)
[2019-11-06 02:01] LABS: #Eosinphils 0.2 thou/uL (0.0-0.7); #Lymphocytes 2.2 thou/uL (1.20-3.40); #Monocytes 0.9 thou/uL (0.11-0.59); #Neutrophils 4.2 thou/uL (1.40-6.50); %Basophils 0.4 % (0.0-1.0); %Eosinophils 2.6 % (0.0-10.0); %Monocytes 11.8 % (0.0-10.0); %Neutrophils 56.3 % (42.0-75.0); Mean Platelet Volume 7.8 fL (7.4-10.4); Platelet Count 86 thou/uL (130-400); Platelet Morphology Comment Appears Decreased
--- NOTE | 2019-11-06 08:42 | RAD ---
PORTABLE CHEST ONE VIEW: HISTORY: Shortness of breath. Altered mental status. COMPARISON: 10/13/2019 FINDINGS: Cardiomegaly with bilateral vascular congestion and some increased markings bilaterally with probable small pleural effusions. Old granulomatous disease. IMPRESSION: 1. Overall stable appearance of the chest with increased markings and chronic changes. 2. Minimal cardiomegaly. 3. No significant new process. POS: [facility]
== END 2019-11-06 02:14 ==
LOC: ERS 01:02
DX: R41.82 Altered mental status, unspecified (principal); G43.909 Migraine, unspecified, not intractable, without status migrainosus; K21.9 Gastro-esophageal reflux disease without esophagitis; I10 Essential (primary) hypertension; F31.9 Bipolar disorder, unspecified; F17.210 Nicotine dependence, cigarettes, uncomplicated; Z79.899 Other long term (current) drug therapy
CPT/HCPCS: 51701; 71045; 81003; 81015; 85025; 87086; 93005; A4353

== ENCOUNTER 2019-11-25 20:39 | Observation (INO) | payer MEDICARE, MEDICAID ==
--- NOTE | 2019-11-25 21:04 | RAD ---
Chest one view HISTORY: Chest pain. COMPARISON: 11/06/2019. FINDINGS: Cardiac silhouette is magnified and upper limits of normal in size. Pulmonary vasculature a lso upper limits of normal. Mediastinum is midline with aortic calcification and postoperative changes.. Scattered areas of paren chymal scarring throughout each lung and calcified granulomata are again demonstrated. Old rib fractures. No lobar consolidation or evidence of pneumothorax. IMPRESSION : Chronic-type findings are stable. No active cardiopulmonary abnormalities are demonstrated.
[2019-11-25 21:19] LABS: Hemoglobin 12.9 g/dL (12.0-16.0); Mean Corpuscular HGB CONC 31.3 g/dL (32.0-36.0); Mean Corpuscular Hemoglobin 33.3 pg (27.0-31.0); Mean Platelet Volume 7.2 fL (7.4-10.4); Platelet Count 165 thou/uL (130-400); RBC Distribution Width 16.5 % (11.5-14.5); Red Blood Cell (RBC) Count 3.89 mill/uL (4.20-5.40); White Blood Cell (WBC) Count 4.7 thou/uL (4.8-10.8)
[2019-11-25 21:32] LABS: #Eosinphils 0.3 thou/uL (0.0-0.7); #Monocytes 0.3 thou/uL (0.11-0.59); #Neutrophils 2.1 thou/uL (1.40-6.50); %Basophils 0.8 % (0.0-1.0); %Eosinophils 5.4 % (0.0-10.0); %Lymphocytes 42.8 % (21.0-51.0); Anisocytosis SLIGHT = 6-15 cells (100X) (0-5/hpf); MDiff Complete? YES; Macrocytosis SLIGHT = 6-15 cells (100X) (0-5/hpf)
[2019-11-25 21:38] LABS: ALT (SGPT) Less than 7 U/L (8-55); AST (SGOT) 12 U/L (5-34); Albumin 4.1 g/dL (3.4-4.8); Alkaline Phosphatase 50 U/L (40-110); Anion Gap 17 mmol/L (10-20); BUN (Urea Nitrogen) 28 mg/dL (9.8-20.1); Bilirubin, Total 0.4 mg/dL (0.2-1.2); CK (CPK) 22 U/L (29-168); Calc. Creatinine Clearance 0 mL/min (70-130); Calcium 9.6 mg/dL (7.8-10.44); Carbon Dioxide 27 mmol/L (23-31); Chloride 103 mmol/L (98-107); Estimated GFR-MDRD 21; Globulin 3.5 g/dL (2.4-3.5); Glucose 87 mg/dL (83-110); Potassium 4.5 mmol/L (3.5-5.1); Protein, Total 7.6 g/dL (6.0-8.3); Sodium 142 mmol/L (136-145)
[2019-11-25] MEDS ORDERED: Senokot S 8.6-50 MG TAB PO PRN (22:51)
[2019-11-25] MEDS ORDERED: Acetaminophen 325 MG TAB PO PRN (22:51)
[2019-11-25] MEDS ORDERED: Melatonin 3 MG TAB PO PRN (22:55)
[2019-11-25] MEDS ORDERED: Nicotine 14 MG PATCH TD SCH (23:00)
[2019-11-26] MEDS ORDERED: Albuterol Sulfate 2.5 mg/3 ml Neb NEB PRN (00:15)
[2019-11-26] MEDS ORDERED: ALPRAZolam 0.5 MG TAB PO PRN (00:15)
[2019-11-26 00:54] LABS: Troponin I 0.025 ng/mL (< 0.028)
[2019-11-26 01:13] VITALS: BMI 23.5
--- NOTE | 2019-11-26 02:25 | HP ---
PRIMARY CARE PHYSICIAN: [facility] in [place]. CHIEF COMPLAINT: Chest pain. HISTORY OF PRESENT ILLNESS: Ms. Dimas who goes by Pankaj is a very pleasant 74-year-old female who was brought to the ER today via EMS for ongoing left-sided chest pain that started this afternoon. She reports a sharp chest pain in her left breast, reports that it does not radiate and she denies any shortness of breath with it. She does report some edema to her legs and feet over the last few days, which she reports is relatively new for her, but told the ER that this happened a few years ago. She reports that this pain is similar to what she has had in the past and our notes suggest that she was admitted for similar pain in May of last year. In May 2019, Dr. Ivory recommended a stress test because she had been having several episodes of chest pain, but after she thought about it for a while, she reports to me that she told Dr. Ivory at that time that she did not want any procedures. She reports that she has had quite a few procedures in her life and she does not want any more. She reports that at that time she made herself a DNR and states that she would like to continue to be a DNR on this visit. She reports that her daughter is her surrogate decision maker. She does have a history of coronary artery disease and has had a cardiac bypass in the past. She denies any abdominal pain, nausea, vomiting, fever, or chills. The patient will be admitted to the observation unit for further management and evaluation. REVIEW OF SYSTEMS: The patient denies chills or fever. Reports chest pain. Reports bilateral lower leg edema. Denies any abdominal pain, nausea, vomiting, or diarrhea. She denies any urinary complaints. All systems are reviewed and are negative unless mentioned in the HPI or above. PAST MEDICAL HISTORY: Pertinent for migraines, coronary artery disease, GERD, hypertension, has had a TIA and a CVA in the past, chronic obstructive pulmonary disease, osteoporosis, chronic back pain, and chronic kidney disease. Appendectomy, coronary artery bypass graft surgery, tonsillectomy, right carotid stent, hysterectomy, she has a stent in her left leg, tubal ligation, stent in the left groin. PSYCH HISTORY: Bipolar, depression. Per ER record, the patient has had attempted suicide 4 times in the past. SOCIAL HISTORY: She smoked about a pack a day and has for almost 30 years. She lives in assisted living in [place]. ALLERGIES: BACTRIM, CODEINE. MEDICATIONS: Which will need to be reconciled; 1. Xanax 0.5 mg p.o. t.i.d. as needed. 2. Amlodipine 5 mg p.o. b.i.d. 3. Plavix 75 mg p.o. once a day. 4. Levothyroxine 100 mcg half tab once a day in the a.m. 5. Metoprolol 50 mg p.o. b.i.d. 6. Simvastatin 20 mg p.o. once a day. 7. Tylenol 325 mg p.o. once a day. 8. Nexium 20 mg once a day. 9. Vitamin D 1 tab once a day. 10. Symbicort 2 puffs 2 times a day. 11. Lidocaine topical as needed. 12. Tramadol 50 mg 1 to 2 tabs b.i.d. 13. Docusate sodium 100 mg as needed. 14. Atrovent inhalation inhaler 1 to 4 times a day as needed. 15. Albuterol neb 2.5 q.i.d. as needed. 16. Baclofen 20 mg p.o. b.i.d. 17. Isosorbide 20 mg p.o. once a day. PHYSICAL EXAMINATION: VITAL SIGNS: Blood pressure 147/73, pulse is 66, respirations are 16, temp is 97.6, pO2 sats are 97% on 1 L of oxygen. CONSTITUTIONAL: The patient is nontoxic. She was initially sleeping and once awake, is alert and oriented to person, place, and time. She is in no apparent distress. HEAD: Atraumatic and normocephalic. EYES: Pupils are equally round and reactive to light. Extraocular muscles are intact. ENT: Mouth exam is normal. Mucous membranes are moist. NECK: Normal range of motion. Trachea is midline. RESPIRATORY/CHEST: Breath sounds are clear. Chest expansion is equal. CARDIOVASCULAR: She has a systolic murmur, grade 3/6. Her heart rate, regular rate and rhythm. ABDOMEN: Nontender. Bowel sounds are heard. BACK: Normal range of motion. No tenderness. EXTREMITIES: Upper extremity; normal inspection, normal range of motion. Radial pulses are normal. Lower extremities; normal range of motion. Motor strength is normal. NEURO: Patient is oriented to person, place, and time. Speech is normal. SKIN: Warm, dry and normal in color. PSYCH: Normal affect. Oriented to person, place, and time. LAB VALUES: Sodium 142, potassium 4.5, gap is 17, carbon dioxide 27, BUN is 28, creatinine is 2.29, estimated GFR is 21. When her creatinine checked in 10/21/2019, it was 1.61; 10/19/2019, it was 1.46; 10/13/2019, it was 1.72. Estimated GFR today is 21, glucose is 87. Liver enzymes are unremarkable. Troponin x2 is are undetectable. Hemoglobin 12.9, hematocrit 41.4, and platelet count is 165. PLAN/ASSESSMENT: 1. Chest pain with no changes to her EKG, 2 troponins undetectable. We will continue to trend. In light of the conversation on admission, patient wishes to be a DNR and does not wish to have any procedures done, it is conceivable that if the troponins continue to be negative and if the patient feels better, she can be discharged back to assisted living or Cardiology may be consulted for potential medical management. Dr. Ivory's note in May stated that this medical management would be reasonable if the patient did not want to proceed with a cardiac cath which he recommended at that time. 2. History of hypertension. We will continue home medications. 3. History of cerebrovascular accident. We will continue her home medications. 4. History of hypothyroidism. Restart her home medications and we will check a TSH and a T4. 5. History of chronic obstructive pulmonary disease. We will restart her home medications. Also, she has asked for a nicotine patch, which has been ordered. 6. Deep vein thrombosis and gastrointestinal prophylaxis have been started. 7. The patient's case discussed with Dr. Wills at length. He agrees with plan. Dr. Wills would like day team to reassess the patient and her wishes in the a.m. after her troponins have been collected before ordering any further testing. 8. Hospital course dependent on clinical findings. Job ID: [id number]
[2019-11-26 03:35] LABS: #Basophils 0.1 thou/uL (0.0-0.2); #Eosinphils 0.2 thou/uL (0.0-0.7); #Lymphocytes 2.3 thou/uL (1.20-3.40); #Monocytes 0.3 thou/uL (0.11-0.59); #Neutrophils 1.9 thou/uL (1.40-6.50); %Basophils 1.4 % (0.0-1.0); %Eosinophils 4.8 % (0.0-10.0); %Lymphocytes 48.5 % (21.0-51.0); %Monocytes 6.9 % (0.0-10.0); %Neutrophils 38.4 % (42.0-75.0); Hemoglobin 12.5 g/dL (12.0-16.0); Mean Corpuscular HGB CONC 31.6 g/dL (32.0-36.0); Mean Corpuscular Hemoglobin 33.6 pg (27.0-31.0); Mean Platelet Volume 7.2 fL (7.4-10.4); Platelet Count 155 thou/uL (130-400); RBC Distribution Width 16.7 % (11.5-14.5); Red Blood Cell (RBC) Count 3.71 mill/uL (4.20-5.40); White Blood Cell (WBC) Count 4.8 thou/uL (4.8-10.8)
[2019-11-26 03:57] LABS: ALT (SGPT) Less than 7 U/L (8-55); AST (SGOT) 10 U/L (5-34); Albumin 3.6 g/dL (3.4-4.8); Alkaline Phosphatase 43 U/L (40-110); Anion Gap 13 mmol/L (10-20); BUN (Urea Nitrogen) 28 mg/dL (9.8-20.1); Bilirubin, Total 0.3 mg/dL (0.2-1.2); Calc. Creatinine Clearance 28 mL/min (70-130); Calcium 9.3 mg/dL (7.8-10.44); Carbon Dioxide 24 mmol/L (23-31); Chloride 108 mmol/L (98-107); Estimated GFR-MDRD 25; Globulin 3.1 g/dL (2.4-3.5); Glucose 107 mg/dL (83-110); Potassium 4.3 mmol/L (3.5-5.1); Protein, Total 6.7 g/dL (6.0-8.3); Sodium 141 mmol/L (136-145)
[2019-11-26 04:18] LABS: Thyroid Stimulating Hormone 3.5668 uIU/mL (0.35-4.94)
[2019-11-26 04:28] LABS: Free T4 (Free Thyroxine) 0.91 ng/dL (0.70-1.48)
[2019-11-26] MEDS ORDERED: Levothyroxine Sodium 50 MCG TAB PO SCH (06:00)
[2019-11-26] MEDS ORDERED: Divalproex Sodium 250 MG (DR) TAB PO SCH ×2 (09:00→21:00)
[2019-11-26] MEDS ORDERED: Amlodipine 10 MG TAB PO SCH (09:00)
[2019-11-26] MEDS ORDERED: Famotidine 20 MG TAB PO SCH (09:00)
[2019-11-26] MEDS ORDERED: Clopidogrel Bisulfate 75 MG TAB PO SCH (09:00)
[2019-11-26] MEDS ORDERED: Isosorbide Mononitrate (ER) 30 MG TAB PO SCH (09:00)
[2019-11-26] MEDS ORDERED: hydrALAZINE 25 MG TAB PO SCH (09:00)
[2019-11-26 12:20] LABS: Bacteria/HPF None Seen HPF (None Seen); Bilirubin Negative (Negative); Blood, Urine Negative (Negative); Clarity Clear (Clear); Glucose, Urine (Dipstick) Normal (Negative); Leukocyte Negative Leu/uL (Negative); Nitrite Negative (Negative); Protein, Urine (Dipstick) 10 mg/dL (Neg-Trace); RBC/HPF 0-3 HPF (0-3); Squamous Epithelial 0-3 HPF (0-3); Urobilinogen Normal mg/dL (Less than 2); WBC/HPF 0-3 HPF (0-3)
[2019-11-26 12:22] LABS: Urine Culture Reflex No No
[2019-11-26 15:08] VITALS: BP 134/63; TEMP 97.8
[2019-11-27] MEDS ORDERED: fentaNYL 50 mcg/hour Patch TD PRN (02:39)
--- NOTE | 2019-11-28 10:06 | DIS ---
DATE OF ADMISSION: 11/25/2019 DATE OF DISCHARGE: 11/26/2019 DISCHARGE DIAGNOSES: 1. Chest pain, likely musculoskeletal. 2. Hypertension, stable. 3. Chronic obstructive pulmonary disease, stable. 4. Hypothyroidism. 5. Acute kidney injury on chronic kidney disease, stage 3. 6. Coronary artery disease, chronic and stable. CONSULTATIONS: None. PERTINENT LABORATORY AND X-RAY FINDINGS: Creatinine ranged between 1.98 to 2.29. Estimated GFR ranged between 21 to 25. Troponin I negative x3. BNP 744. TSH is 3.57, free T4 of 0.91. CBC showed MCV ranging between 106 to 107. Urinalysis negative. Portable chest x-ray dated 11/25/2019 showed chronic changes without acute infiltrate. HOSPITAL COURSE: The patient was observed on the telemetry unit after initially presenting with complaints of left-sided chest pain localizing to the left breast. Serial cardiac biomarkers were performed showing no evidence of troponin elevation, and EKG remained unchanged throughout the hospital course. Chest imaging showed no acute infiltrate, and the patient overall clinically stabilized with supportive management and monitoring. The patient was noted with mild acute kidney injury, improving with general supportive management and avoidance of nephrotoxic agents. The patient overall remained clinically stable during the hospital course, tolerating regular oral intake and voiding appropriately. The patient was noted ambulatory with use of a rolling walker with standby assistance. I have examined the patient at the time of discharge and discussed followup instructions. The patient verbalized understanding and agreement, ready for discharge on 11/26/2019. DISCHARGE MEDICATIONS: 1. Albuterol sulfate one inhalation nebulized b.i.d. p.r.n. 2. Xanax 0.5 mg p.o. t.i.d. p.r.n. 3. Norvasc 10 mg p.o. daily. 4. Baclofen 20 mg p.o. b.i.d. p.r.n. 5. Symbicort 160/4.5 two puffs inhaled b.i.d. 6. Vitamin D3 of 1000 units p.o. daily. 7. Plavix 75 mg p.o. daily. 8. Depakote 250 mg p.o. q.a.m. and 500 mg p.o. q.h.s. 9. Nexium 40 mg p.o. daily. 10. Atrovent HFA one puff inhaled q.i.d. p.r.n. 11. Levothyroxine 50 mcg p.o. daily. 12. Metoprolol tartrate 50 mg p.o. b.i.d. 13. Tramadol 50 to 100 mg p.o. q.6 hours p.r.n. 14. Hydralazine 50 mg p.o. b.i.d. 15. Imdur extended release 30 mg p.o. daily. FOLLOWUP: The patient may follow up with her primary care provider, Dr. Nunez, within 7 days of discharge. CONDITION ON DISCHARGE: Stable. ACTIVITY: Ad connie, rolling walker for ambulation. DIET: Heart healthy. CODE STATUS: Do not attempt resuscitation. DISPOSITION: Discharged home to [facility] on 11/26/2019. Job ID: [id number]
--- NOTE | 2019-12-03 11:53 | EKG ---
Test Reason : Blood Pressure : / mmHG Vent. Rate : 066 BPM Atrial Rate : 066 BPM P-R Int : 160 ms QRS Dur : 100 ms QT Int : 404 ms P-R-T Axes : 041 001 114 degrees QTc Int : 423 ms Normal sinus rhythm T wave abnormality, consider lateral ischemia Abnormal ECG Confirmed by RENEE CUEVAS ([id number]), supervising film or videotape editor AMANDA FARLEY ([id number]) on 12/03/2019 11:52:32 AM Referred By: Confirmed By:RENEE Aleman
== END 2019-11-26 16:20 | disposition home or self-care (01) ==
LOC: ERS 20:39 → 2NO 22:31
PROVIDERS: ADMIT Internal Medicine; ATTEND Internal Medicine
DX: R07.9 Chest pain, unspecified (principal); I12.9 Hypertensive chronic kidney disease with stage 1 through stage 4 chronic kidney disease, or unspecified chronic kidney disease; N18.3 Chronic kidney disease, stage 3 (moderate); N17.9 Acute kidney failure, unspecified; I25.10 Atherosclerotic heart disease of native coronary artery without angina pectoris; K21.9 Gastro-esophageal reflux disease without esophagitis; G89.29 Other chronic pain; M54.9 Dorsalgia, unspecified; M81.0 Age-related osteoporosis without current pathological fracture; F31.9 Bipolar disorder, unspecified; J44.9 Chronic obstructive pulmonary disease, unspecified; F17.210 Nicotine dependence, cigarettes, uncomplicated; T14.91XA Suicide attempt, initial encounter; Z79.899 Other long term (current) drug therapy; Z86.73 Personal history of transient ischemic attack (TIA), and cerebral infarction without residual deficits; Z88.2 Allergy status to sulfonamides; Z88.5 Allergy status to narcotic agent; Z95.1 Presence of aortocoronary bypass graft; Z66 Do not resuscitate
CPT/HCPCS: 71045; 80053; 81001; 82550; 83880; 84439; 84484 ×3; 85025; 93005; 94760; 97139; 99285; G0378 ×2; 36415; 84443

== ENCOUNTER 2020-04-08 20:01 | Emergency (ER) | payer MEDICARE, MEDICAID ==
--- NOTE | 2020-04-08 20:52 | RAD ---
XR Chest 1 View Portable History: Chest pain Comparison: Radiograph December 2019 Findings: Old left rib fractures. Heart size is enlarged. Scarring lung bases. No pneumothorax. No co nfluent consolidation. Impression: Marked cardiomegaly without pulmonary edema nor significant effusions.
[2020-04-08 20:55] LABS: #Basophils 0.1 thou/uL (0.0-0.2); #Eosinphils 0.1 thou/uL (0.0-0.7); #Lymphocytes 1.5 thou/uL (1.20-3.40); #Monocytes 0.4 thou/uL (0.11-0.59); #Neutrophils 2.1 thou/uL (1.40-6.50); %Basophils 1.3 % (0.0-1.0); %Eosinophils 1.7 % (0.0-10.0); %Lymphocytes 36.7 % (21.0-51.0); %Monocytes 9.7 % (0.0-10.0); %Neutrophils 50.6 % (42.0-75.0); Hemoglobin 12.5 g/dL (12.0-16.0); Mean Corpuscular HGB CONC 31.5 g/dL (32.0-36.0); Mean Corpuscular Hemoglobin 31.8 pg (27.0-31.0); Mean Platelet Volume 7.8 fL (7.4-10.4); Platelet Count 162 thou/uL (130-400); RBC Distribution Width 15.6 % (11.5-14.5); Red Blood Cell (RBC) Count 3.93 mill/uL (4.20-5.40); White Blood Cell (WBC) Count 4.1 thou/uL (4.8-10.8)
[2020-04-08 21:17] LABS: ALT (SGPT) 9 U/L (8-55); AST (SGOT) 11 U/L (5-34); Albumin 3.5 g/dL (3.4-4.8); Alkaline Phosphatase 50 U/L (40-110); Anion Gap 15 mmol/L (10-20); BUN (Urea Nitrogen) 32 mg/dL (9.8-20.1); Bilirubin, Total 0.2 mg/dL (0.2-1.2); Calc. Creatinine Clearance 0 mL/min (70-130); Calcium 8.7 mg/dL (7.8-10.44); Carbon Dioxide 26 mmol/L (23-31); Chloride 105 mmol/L (98-107); Estimated GFR-MDRD 26; Globulin 3.3 g/dL (2.4-3.5); Glucose 92 mg/dL (83-110); Potassium 3.9 mmol/L (3.5-5.1); Protein, Total 6.8 g/dL (6.0-8.3); Sodium 142 mmol/L (136-145)
[2020-04-08 23:33] LABS: Troponin I 0.022 ng/mL (< 0.028)
== END 2020-04-08 23:59 | disposition left against medical advice (07) ==
LOC: ERS 20:01
DX: R07.2 Precordial pain (principal); K21.9 Gastro-esophageal reflux disease without esophagitis; I10 Essential (primary) hypertension; G43.909 Migraine, unspecified, not intractable, without status migrainosus; J44.9 Chronic obstructive pulmonary disease, unspecified; F31.9 Bipolar disorder, unspecified; F17.210 Nicotine dependence, cigarettes, uncomplicated; M81.0 Age-related osteoporosis without current pathological fracture; E78.5 Hyperlipidemia, unspecified; Z79.891 Long term (current) use of opiate analgesic; Z86.73 Personal history of transient ischemic attack (TIA), and cerebral infarction without residual deficits; Z79.899 Other long term (current) drug therapy
CPT/HCPCS: 36415; 71045; 80053; 84484; 85025; 93005

== ENCOUNTER 2020-04-27 15:41 | Inpatient (IN) | payer MEDICARE, MEDICAID ==
[2020-04-27] MEDS ORDERED: Bisacodyl 10 MG SUPP PR PRN (16:38)
[2020-04-27] MEDS ORDERED: Ondansetron PF 4 MG/2 ML Vial IVP PRN (16:38)
[2020-04-27] MEDS ORDERED: Calcium Carbonate 500 MG ChewTAB PO PRN (16:38)
[2020-04-27] MEDS ORDERED: Guaifenesin DM 100-10/5 ML UDCUP PO PRN (16:38)
[2020-04-27] MEDS ORDERED: Acetaminophen 325 MG TAB PO PRN (16:38)
[2020-04-27] MEDS ORDERED: Naloxone HCl 0.4 mg/ml Vial IV PRN (16:46)
--- NOTE | 2020-04-27 17:16 | PDOC.EVN ---
Event Note - Event Note Event Note: Additional information was obtained by talking to Sylvia public health administrator at [facility] Patient took her regular dose of baclofen 20mg in addition to xanax this am. Her Fentanyl was switched from 50mcg [id number] to [id number] recently by her Pain specialist . She has no close contacts with any family members per Patient has clearly expressed to her that she did not want resuscitation done come what may.
--- NOTE | 2020-04-27 17:37 | HP ---
REASON FOR ADMISSION: Narcotic overdose, acute respiratory failure with hypoxia, acute encephalopathy secondary to overdose on narcotics. HISTORY OF PRESENTING ILLNESS: Please note majority of this history is obtained by talking to ER physician at [place] where the patient was initially transferred from skilled nursing. The patient lives at [facility]. She was slumped over in a chair and was not herself. She was confused, hence EMS was summoned and the patient was taken to [place] [facility]. She was given multiple doses of Narcan. The patient would wake up, but then would fall asleep again. Finally, she was placed on a Narcan drip and transferred here for higher level of care. She was on a fentanyl patch, which was recently increased by her pain specialist, Dr. Lima, from 50 mcg q.72 h to q48 hourly. The patient is also on Xanax, baclofen 20 mg twice daily p.r.n. She currently is waking up, but soon falls asleep. She is maintaining her airway. She moves all 4 extremities. PAST MEDICAL AND SURGICAL HISTORY: 1. Chronic pain syndrome with back issues. 2. History of migraine. 3. Coronary artery disease. 4. GERD. 5. CABG. 6. Hypertension. 7. History of TIA and CVA in the past with no residual paralysis at present. 8. COPD. 9. Osteoporosis. 10. Chronic kidney disease. 11. Right carotid stent. 12. Hysterectomy. 13. Left leg stent with peripheral vascular disease. 14. Tubal ligation. 15. Tonsillectomy. 16. Appendectomy. 17. Depression. 18. Mood disorder/bipolar. PERSONAL HISTORY: The patient was a heavy smoker. She currently lives at [facility]. Does not abuse alcohol or drugs. FAMILY HISTORY: Per prior records, sister has history of aneurysm. CURRENT MEDICATIONS: The patient is on: 1. Xanax 0.5 mg 2 to 3 times daily p.r.n. for anxiety. 2. Tylenol p.r.n. 3. Simvastatin 40 mg p.o. daily. 4. Depakote 250 mg p.o. twice daily. 5. Plavix 75 mg p.o. daily. 6. Levothyroxine 50 mcg p.o. daily. 7. Protonix 40 mg daily. 8. Paroxetine 20 mg daily. 9. Symbicort 160/4.5 mcg two puffs twice daily. 10. Fentanyl patch 50 mcg q.72 h. This likely was started on 02/24/2020. 11. Lidocaine ointment p.r.n. 12. Ultram 50 mg one to two tablets p.o. twice daily p.r.n. 13. Colace 100 mg p.r.n. 14. DuoNeb q.i.d. p.r.n. 15. Lasix 20 mg daily. 16. Norvasc 10 mg daily. 17. Metoprolol tartrate 50 mg twice daily. 18. Baclofen 20 mg twice daily p.r.n. 19. Hydralazine 50 mg twice daily. 20. Tobramycin with dexamethasone one drop to left eye twice daily. ALLERGIES: ALLERGIC TO CODEINE, SULFA, AND TRIMETHOPRIM. CODE STATUS: Do not attempt to resuscitate. The patient has recently signed out of hospital DNR in August of this year. REVIEW OF SYSTEMS: Cannot be obtained as the patient is not fully awake and is very lethargic. PHYSICAL EXAMINATION: GENERAL: The patient is a 74-year-old female who is currently not in any acute distress. VITAL SIGNS: Blood pressure is 160/84, pulse 80 per minute, respiratory rate 14 per minute, saturating 94% on 2 L nasal cannula, and temperature 97.5 degrees Fahrenheit. NECK: Supple. No elevated JVP. EYES: Pupils are 5 mm and reacting to light. Extraocular muscles intact. Pupils reacting to light. ORAL CAVITY: Mucous membranes are dry. No exudates or congestion. CARDIOVASCULAR SYSTEM: S1 and S2 heard. Regular rhythm. RESPIRATORY SYSTEM: Air entry 1+ bilateral. Scattered rhonchi. No rales or wheezes. ABDOMEN: Soft. Bowel sounds heard. No tenderness, rigidity, or guarding. EXTREMITIES: No peripheral edema or calf tenderness. VASCULAR SYSTEM: Peripheral pulses 1+ bilateral. No ischemic ulcerations or gangrene. CENTRAL NERVOUS SYSTEM: No gross focal deficits noted. The patient is lethargic, but responds well to verbal questions when she wakes up. PSYCHIATRIC SYSTEM: No obvious hallucinations or delusions. LABORATORY DATA: White count of 5, hemoglobin and hematocrit 12 and 39, platelet count 186, and MCV is 98 with 58% neutrophils. Venous blood gas done at [place] shows a pH of 7.32, pCO2 of 62, and pO2 of 228. BUN 37, creatinine 2.0, and serum bicarb 27. Electrolytes stable. Liver enzymes within normal limits. Albumin 3.5. Plasma alcohol less than 10. CT brain done showed no acute intracranial abnormality. CLINICAL IMPRESSION AND PLAN: The patient will be admitted to [facility] for opioid overdose with likely contributions from baclofen, Xanax, and other psychotropic agents that she is on. She was on a Narcan drip, which has been discontinued here. If the patient's respiratory rate were to drop less than 12 or her saturations dropped to less than 85% on oxygen, she will be placed back on Narcan drip. The patient had a recent increase in her dose of fentanyl patch from 50mcg q72h to q48h by her primary pain specialist, Dr. Lima. Ever since, this increase was done per [facility] staff, the patient has had lethargy. Her baclofen and Xanax will also be held. We will ascertain if she takes baclofen and Xanax on a regular basis from [facility] to prevent withdrawal seizures. We will continue all her home medications including Norvasc, Depakote, Plavix, Imdur, Lopressor, and Synthroid as before. She will be on clear liquid diet until she fully wakes up. She will have a one-to-one sitter until she is fully awake. Job ID: [id number] [facility]
[2020-04-27] MEDS ORDERED: FLU VACC QS2020-21(65YR UP)/PF 240 MCG/0.7 ML SYRINGE IM ONE (17:45)
[2020-04-27] MEDS: Dextrose 5% in Water 1,000 ML IV SCH (18:04)
[2020-04-27 18:10] VITALS: BMI 24.0
[2020-04-27] MEDS ORDERED: Mometasone 200 MCG/Formoterol 5 MCG 120 PUFF INHALER INH PRN (18:30)
[2020-04-27] MEDS: Albuterol Sulfate 2.5 mg/3 ml Neb NEB SCH ×2 (19:27→23:31)
[2020-04-28] MEDS: Senokot S 8.6-50 MG TAB PO SCH ×3 (01:52→20:57)
[2020-04-28] MEDS: Metoprolol Tartrate 50 MG TAB PO SCH ×3 (01:52→20:59)
[2020-04-28] MEDS: Divalproex Sodium 250 MG (DR) TAB PO SCH ×3 (02:21→20:58)
[2020-04-28] MEDS: Famotidine 20 MG TAB PO SCH ×3 (02:21→20:58)
[2020-04-28 03:40] LABS: #Eosinphils 0.1 thou/uL (0.0-0.7); #Lymphocytes 1.1 thou/uL (1.20-3.40); #Monocytes 0.5 thou/uL (0.11-0.59); #Neutrophils 2.4 thou/uL (1.40-6.50); %Basophils 0.6 % (0.0-1.0); %Eosinophils 1.6 % (0.0-10.0); %Lymphocytes 26.7 % (21.0-51.0); %Neutrophils 58.1 % (42.0-75.0); Hemoglobin 12.8 g/dL (12.0-16.0); Mean Corpuscular HGB CONC 33.4 g/dL (32.0-36.0); Mean Corpuscular Hemoglobin 33.6 pg (27.0-31.0); Mean Platelet Volume 7.1 fL (7.4-10.4); Platelet Count 184 thou/uL (130-400); Red Blood Cell (RBC) Count 3.82 mill/uL (4.20-5.40); White Blood Cell (WBC) Count 4.1 thou/uL (4.8-10.8)
[2020-04-28] MEDS: Albuterol Sulfate 2.5 mg/3 ml Neb NEB SCH ×3 (03:50→18:42)
[2020-04-28 04:00] LABS: Anion Gap 11 mmol/L (10-20); BUN (Urea Nitrogen) 29 mg/dL (9.8-20.1); Calc. Creatinine Clearance 34 mL/min (70-130); Calcium 9.1 mg/dL (7.8-10.44); Carbon Dioxide 31 mmol/L (23-31); Chloride 100 mmol/L (98-107); Estimated GFR-MDRD 32; Glucose 113 mg/dL (83-110); Potassium 4.2 mmol/L (3.5-5.1); Sodium 138 mmol/L (136-145)
[2020-04-28] MEDS: Dextrose 5% in Water 1,000 ML IV SCH ×3 (04:19→22:28)
[2020-04-28] MEDS: Levothyroxine Sodium 50 MCG TAB PO SCH (06:12)
[2020-04-28] MEDS: Clopidogrel Bisulfate 75 MG TAB PO SCH (09:35)
[2020-04-28] MEDS: Enoxaparin Sodium 40 MG/0.4 ML SYRINGE SC SCH (09:37)
[2020-04-28] MEDS: Amlodipine 10 MG TAB PO SCH (09:37)
[2020-04-28] MEDS: Nicotine 21 MG PATCH TOP SCH (10:09)
[2020-04-28] MEDS ORDERED: ALPRAZolam 0.5 MG TAB PO PRN (11:24)
--- NOTE | 2020-04-28 13:31 | PDOC.HOSPP ---
- Subjective Encounter Date: 04/28/20 Encounter Time: 11:40 Subjective: is more awake and oriented this morning still has some issues with remebering stuff tolerating oral diet, will advance to solid food - Objective Vital Signs & Weight: Vital Signs (12 hours) Temp Pulse Ox 04/28/20 11:27 98.9 F 04/28/20 07:15 97 04/28/20 07:13 96.8 F L 04/28/20 04:20 97.0 F L 04/28/20 03:50 96 Weight Admit Weight 153 lb 3.2 oz Weight 153 lb 3.2 oz Most Recent Monitor Data Heart Rate from ECG 60 NIBP 130/59 NIBP BP-Mean 82 Respiration from ECG 27 SpO2 97 I&O: 04/27/20 04/28/20 04/29/20 06:59 06:59 06:59 Intake Total 1265 Output Total 1675 Balance -410 Result Diagrams: 04/28/20 03:30 04/28/20 03:30 Hospitalist ROS - Medication Medications: Active Medications Generic Name Dose Route Start Last Admin Trade Name Freq PRN Reason Stop Dose Admin Amlodipine Besylate 10 mg 04/28/20 09:00 04/28/20 09:37 Amlodipine 10 Mg Tab PO 10 mg DAILY CASSY Administration Clopidogrel Bisulfate 75 mg 04/28/20 09:00 04/28/20 09:35 Clopidogrel Bisulfate 75 Mg Tab PO 75 mg DAILY CASSY Administration Divalproex Sodium 250 mg 04/28/20 09:00 04/28/20 09:36 Divalproex Sodium 250 Mg (Dr) Tab PO 250 mg QAM CASSY Administration Divalproex Sodium 500 mg 04/27/20 21:00 04/28/20 02:21 Divalproex Sodium 250 Mg (Dr) Tab PO Not Given HS CASSY Enoxaparin Sodium 40 mg 04/28/20 09:00 04/28/20 09:37 Enoxaparin Sodium 40 Mg/0.4 Ml Syringe SC 40 mg 0900 CASSY Administration Famotidine 20 mg 04/27/20 21:00 04/28/20 09:36 Famotidine 20 Mg Tab PO 20 mg BID CASSY Administration Dextrose/Water 1,000 mls @ 100 mls/hr 04/27/20 17:15 04/28/20 13:15 D5w IV 1,000 mls .Q10H CASSY Administration Isosorbide Mononitrate 30 mg 04/28/20 09:00 04/28/20 09:35 Isosorbide Mononitrate Er 30 Mg Tab PO 30 mg DAILY CASSY Administration Levothyroxine Sodium 50 mcg 04/28/20 06:00 04/28/20 06:12 Levothyroxine Sodium 50 Mcg Tab PO 50 mcg 0600 CASSY Administration Metoprolol Tartrate 50 mg 04/27/20 21:00 04/28/20 09:35 Metoprolol Tartrate 50 Mg Tab PO 50 mg BID CASSY Administration Nicotine 21 mg 04/28/20 10:00 04/28/20 10:09 Nicotine 21 Mg Patch TOP 21 mg Q24HR CASSY Administration Senna/Docusate Sodium 2 tab 04/27/20 21:00 04/28/20 09:35 Senokot S 8.6-50 Mg Tab PO 2 tab BID CASSY Administration - Exam General Appearance: awake alert Eye: PERRL, anicteric sclera ENT: no oropharyngeal lesions, dry oral mucosa Neck: supple, no JVD Heart: RRR, no murmur Respiratory: no wheezes, no rales, rhonchi Gastrointestinal: soft, non-tender, non-distended, normal bowel sounds Extremities: no cyanosis, no edema Neurological: cranial nerve grossly intact, no focal deficits Hosp A/P (1) Narcotic overdose Code(s): T40.601A - POISONING BY UNSP NARCOTICS, ACCIDENTAL, INIT Status: Resolved Qualifiers: Encounter type: subsequent encounter (2) Encephalopathy acute Code(s): G93.40 - ENCEPHALOPATHY, UNSPECIFIED Status: Resolved (3) COPD (chronic obstructive pulmonary disease) Status: Chronic Qualifiers: COPD type: chronic bronchitis (4) Chronic pain syndrome Code(s): G89.4 - CHRONIC PAIN SYNDROME Status: Chronic (5) HTN (hypertension) Code(s): I10 - ESSENTIAL (PRIMARY) HYPERTENSION Status: Chronic Qualifiers: Hypertension type: essential hypertension Qualified Code(s): I10 - Essential (primary) hypertension (6) Dyslipidemia Code(s): E78.5 - HYPERLIPIDEMIA, UNSPECIFIED Status: Chronic (7) Mood disorder Code(s): F39 - UNSPECIFIED MOOD [AFFECTIVE] DISORDER Status: Chronic (8) Hypothyroidism Code(s): E03.9 - HYPOTHYROIDISM, UNSPECIFIED Status: Chronic (9) GABE (acute kidney injury) Code(s): N17.9 - ACUTE KIDNEY FAILURE, UNSPECIFIED Status: Resolved - Plan will reinitiate fentanyl at lower dose in am to prevent withdrawal symptoms is on xanax tid prn continue nebs, norvasc, plavix, lipitor, lopressor, hydralazine, imdur, synthroid, symbicort inh hemostable to mobilize as tolerated dc plan in am to [facility] in [place] if stable
[2020-04-28 17:01] LABS: SARS-CoV-2 MS2 Positive; SARS-CoV-2 N Gene Negative; SARS-CoV-2 S Gene Negative; SARS-CoV-2 by NAA Not Detected (NotDetected); SARS-CoV-2 orf1ab Negative
[2020-04-28] MEDS: hydrALAZINE 25 MG TAB PO SCH (20:58)
[2020-04-28] MEDS ORDERED: Atorvastatin Calcium 20 MG TAB PO SCH (21:00)
[2020-04-29] MEDS: Albuterol Sulfate 2.5 mg/3 ml Neb NEB SCH ×2 (00:17→07:08)
[2020-04-29] MEDS: Levothyroxine Sodium 50 MCG TAB PO SCH (05:05)
[2020-04-29] MEDS ORDERED: Lidocaine Patch Removal 1 EACH TOP SCH ×2 (06:00→18:30)
[2020-04-29] MEDS ORDERED: Lidocaine 5% Patch TD SCH (06:30)
[2020-04-29 07:35] VITALS: TEMP 97.9
[2020-04-29 08:09] LABS: Anion Gap 13 mmol/L (10-20); BUN (Urea Nitrogen) 28 mg/dL (9.8-20.1); Calc. Creatinine Clearance 35 mL/min (70-130); Calcium 8.4 mg/dL (7.8-10.44); Carbon Dioxide 28 mmol/L (23-31); Chloride 97 mmol/L (98-107); Estimated GFR-MDRD 33; Glucose 90 mg/dL (83-110); Potassium 4.5 mmol/L (3.5-5.1); Sodium 133 mmol/L (136-145)
[2020-04-29] MEDS: Amlodipine 10 MG TAB PO SCH (08:32)
[2020-04-29] MEDS: Famotidine 20 MG TAB PO SCH (08:33)
[2020-04-29] MEDS: Metoprolol Tartrate 50 MG TAB PO SCH (08:33)
[2020-04-29] MEDS: Clopidogrel Bisulfate 75 MG TAB PO SCH (08:33)
[2020-04-29] MEDS: Divalproex Sodium 250 MG (DR) TAB PO SCH (08:33)
[2020-04-29] MEDS: Senokot S 8.6-50 MG TAB PO SCH (08:33)
[2020-04-29] MEDS: Enoxaparin Sodium 40 MG/0.4 ML SYRINGE SC SCH (08:34)
[2020-04-29] MEDS: hydrALAZINE 25 MG TAB PO SCH (08:34)
[2020-04-29] MEDS: Nicotine 21 MG PATCH TOP SCH (08:34)
[2020-04-29 08:41] LABS: #Eosinphils 0.1 thou/uL (0.0-0.7); #Lymphocytes 1.6 thou/uL (1.20-3.40); #Monocytes 0.4 thou/uL (0.11-0.59); #Neutrophils 1.9 thou/uL (1.40-6.50); %Basophils 0.8 % (0.0-1.0); %Eosinophils 1.9 % (0.0-10.0); %Lymphocytes 40.4 % (21.0-51.0); %Monocytes 10.1 % (0.0-10.0); %Neutrophils 46.8 % (42.0-75.0); Hemoglobin 12.2 g/dL (12.0-16.0); Mean Corpuscular HGB CONC 33.4 g/dL (32.0-36.0); Mean Corpuscular Hemoglobin 33.1 pg (27.0-31.0); Mean Corpuscular Volume 99.1 fL (78.0-98.0); Mean Platelet Volume 6.9 fL (7.4-10.4); Platelet Count 181 thou/uL (130-400); RBC Distribution Width 15.9 % (11.5-14.5); Red Blood Cell (RBC) Count 3.67 mill/uL (4.20-5.40)
[2020-04-29 08:43] VITALS: BP 135/65
[2020-04-29] MEDS: Dextrose 5% in Water 1,000 ML IV SCH (08:46)
[2020-04-29] MEDS ORDERED: fentaNYL 50 mcg/hour Patch TD SCH (09:00)
--- NOTE | 2020-04-29 17:44 | DIS ---
DATE OF ADMISSION: 04/27/2020 DATE OF DISCHARGE: 04/29/2020 DISCHARGE DISPOSITION: [facility]. PRIMARY DISCHARGE DIAGNOSES: Narcotic overdose with acute respiratory failure with hypoxia, resolved; acute encephalopathy secondary to above. SECONDARY DISCHARGE DIAGNOSES: Chronic pain syndrome; chronic obstructive pulmonary disease with ongoing tobacco abuse; dyslipidemia; hypertension; mood disorder; acute kidney injury, resolved; hypothyroidism. PROCEDURES DONE DURING HOSPITALIZATION: H and H 12 and 36, platelet count 181. COVID-19 PCR was not detected on 04/28/2020. Plasma alcohol less than 10. Initial BUN and creatinine were 37 and 2.0. Discharge BUN and creatinine are 28 and 1.5. Blood gas on arrival showed a pH of 7.32, pCO2 of 62, PO2 of 228. DISCHARGE MEDICATIONS: 1. Plavix 75 mg p.o. daily. 2. DuoNeb q.6 hourly p.r.n. 3. Depakote 250 mg twice daily. 4. Colace daily p.r.n. 5. 5% lidocaine ointment p.r.n. 6. Metoprolol 50 mg twice daily. 7. Nexium 40 mg p.o. daily. 8. Norvasc 10 mg p.o. daily. 9. Levothyroxine 50 mcg p.o. daily. 10. Calcium carbonate 600 mg daily. 11. Vitamin D3 of 1000 units p.o. daily. 12. Xanax 0.5 mg p.o. three times daily p.r.n. 13. Simvastatin 40 mg p.o. at bedtime. 14. Hydralazine 50 mg twice daily. 15. Fentanyl transdermal patch 50 mcg q.72 hourly. ALLERGIES: ALLERGIC TO CODEINE, SULFA, TRIMETHOPRIM, AND PREDNISONE. DISCHARGE PLAN: The patient to follow up with her pain specialist, Dr. Mattson in 3 to 4 days. She also needs to follow up with her primary care physician, Dr. Corey Nunez in 1 week. BRIEF COURSE DURING HOSPITALIZATION: The patient initially was sent over from her assisted living care center to [facility] for increasing lethargy and confusion. She has chronic pain syndrome and is on fentanyl patch, which was previously q.72 hourly which was changed to q.48 hourly by her pain specialist. In addition, the patient took her baclofen 20 mg twice daily with it. She is also on Xanax. The combination of these factors led to her confusion and the patient was placed on Narcan. She was given multiple doses of Narcan with which she would wake up, but would fall asleep. In view of this, she was placed on Narcan drip and was transferred to our facility. She was in ICU for 24 hours and was later downgraded to medical floor. The Narcan drip was discontinued on arrival and the patient's confusion and encephalopathy are resolving at the time of discharge. Her baclofen has been totally discontinued. She was placed back on fentanyl 50 mcg q.72 hourly patch. A new one placed today prior to discharge and was closely monitored for 2 hours prior to discharge. She was also counseled with regard to tobacco abuse cessation. She is hemodynamically stable. She has ambulated in the hallway here. She is tolerating oral solid diet. She is advised to follow up with her pain specialist in the next 2 to 3 days and primary care physician in 1 week. Please note, I have seen and examined the patient on the day of discharge. Job ID: [id number] PETERSON
== END 2020-04-29 13:11 | DRG 917 ==
LOC: IMCU/EMU 16:35 → T4-A 04-28 12:57
PROVIDERS: ADMIT Internal Medicine; ATTEND Internal Medicine
DX: T40.2X1A Poisoning by other opioids, accidental (unintentional), initial encounter (principal); J96.01 Acute respiratory failure with hypoxia; G92 Toxic encephalopathy; N17.9 Acute kidney failure, unspecified; G89.4 Chronic pain syndrome; J44.9 Chronic obstructive pulmonary disease, unspecified; F17.210 Nicotine dependence, cigarettes, uncomplicated; E78.5 Hyperlipidemia, unspecified; E03.9 Hypothyroidism, unspecified; Z20.828 Contact with and (suspected) exposure to other viral communicable diseases; I25.10 Atherosclerotic heart disease of native coronary artery without angina pectoris; G43.909 Migraine, unspecified, not intractable, without status migrainosus; Z95.1 Presence of aortocoronary bypass graft; I12.9 Hypertensive chronic kidney disease with stage 1 through stage 4 chronic kidney disease, or unspecified chronic kidney disease; F31.9 Bipolar disorder, unspecified; F39 Unspecified mood [affective] disorder; N18.9 Chronic kidney disease, unspecified; M81.0 Age-related osteoporosis without current pathological fracture; Z90.710 Acquired absence of both cervix and uterus; Z86.73 Personal history of transient ischemic attack (TIA), and cerebral infarction without residual deficits; Z98.51 Tubal ligation status
CPT/HCPCS: 36415; 80048; 85025; 87635; 94640; J1650; J7611; U0003

== ENCOUNTER 2020-05-31 04:26 | Observation (INO) | payer MEDICARE, MEDICAID ==
--- NOTE | 2020-05-31 05:43 | PDOC.HHP ---
Hospitalist HPI - History of Present Illness Chest pain History of Present Illness: 74-year-old woman with a history of coronary artery disease status post CABG, hypertension, peripheral vascular disease and aortic stenosis presents to the emergency department with a complaint of intermittent chest pain. Patient report current episode of chest pain over months. She states that the chest pain occurring since the past 3 days. She rated the chest pain at 5/10, located in the anterior chest, nonradiating, no known relieving or aggravating factors. Patient refused cardiac catheterization to evaluate the recurrent chest pain last year. Her troponin was mildly elevated to 0.03. EKG demonstrated T wave inversions in lead III, V1 and V2. Patient is placed under observation for further evaluation. Hospitalist ROS - Review of Systems Other: Patient reports associated shortness of breath. She did not take any medication for her chest pain. Except as documented, all other systems reviewed and negative. - Medication Medications: Medication Instructions Recorded Confirmed Type Clopidogrel Bisulfate [Clopidogrel] 1 tab PO DAILY 03/01/14 04/27/20 History ALPRAZolam [Xanax] 0.5 mg PO TID PRN MDD BID TO TID 08/06/14 04/27/20 History Ipratropium [Atrovent HFA] 1 puff INH QID PRN 03/03/17 04/27/20 History Divalproex Sodium [Depakote] 250 mg PO BID 06/13/19 04/27/20 History Levothyroxine Sodium [Synthroid] 50 mcg PO DAILY 06/13/19 04/27/20 History Lidocaine [Lidocaine 5% Ointment] 1 applic TOP PRN PRN 06/13/19 04/27/20 History Metoprolol Tartrate 1 tab PO BID 06/13/19 04/27/20 History hydrALAZINE [Apresoline] 50 mg PO BID tab 10/07/19 04/27/20 Rx Triamcinolone Acetonide [Kenalog 1 applic TOP BID PRN 11/04/19 04/27/20 History 0.1% Cream] Amlodipine [Norvasc] 10 mg PO DAILY 11/25/19 04/27/20 History Calcium Carbonate [Tums Extra 2 tablet PO DAILY PRN 11/25/19 04/27/20 History Strength] Cholecalciferol (Vitamin D3) 1,000 unit PO DAILY 11/25/19 04/27/20 History [Vitamin D] Docusate Sodium [Docusil] 100 - 300 mg PO DAILY PRN 11/25/19 04/27/20 History Esomeprazole Magnesium [Nexium] 40 mg PO DAILY 11/25/19 04/27/20 History Acetaminophen [Tylenol Regular 650 mg PO Q4H PRN 11/26/19 04/27/20 History Strength] Simvastatin [Zocor] 40 mg PO HS 04/27/20 04/27/20 History fentaNYL [Duragesic] 50 mcg TD Q3D #1 patch 04/29/20 Rx Hospitalist History - Past Medical History Cardiac: reports: CAD, HTN Pulmonary: reports: COPD [employer]: reports: Migraine Gastrointestinal: reports: GERD Psych: reports: Bipolar, Depression Renal/: reports: Chronic renal failure - Past Surgical History Past Surgical History: reports: Appendectomy, CABG, Hysterectomy, Tubal Ligation, Tonsillectomy Other Surgical History: Left leg stent for peripheral vascular disease. - Family History Other Family History: Aneurysm-sister. - Social History Smoking Status: Current every day smoker Alcohol: reports: None Living Situation: Other (Assisted living facility) - Exam General Appearance: NAD, awake alert Eye: PERRL, anicteric sclera ENT: normocephalic atraumatic, moist mucosa Neck: supple, no JVD Heart: RRR, no murmur, no gallops Respiratory: CTAB, no wheezes, no rales, no ronchi Gastrointestinal: soft, non-tender, normal bowel sounds Extremities: no cyanosis, no edema Skin: normal turgor, no rashes Neurological: cranial nerve grossly intact, no weakness, no focal deficits Musculoskeletal: normal tone, normal strength Psychiatric: normal affect, normal behavior, A&O x 3 Hospitalist Results - Labs Lab results: Laboratory Results - last 24 hr 05/31/20 04:54 Troponin I 0.030 H - EKG Interpretation EKG: Normal sinus rhythm, T wave inversion in lead III, V1 and V2. Hospitalist H&P A/P - Problem (1) Angina at rest Code(s): I20.8 - OTHER FORMS OF ANGINA PECTORIS Status: Acute (2) Coronary atherosclerosis of [place] coronary artery Code(s): I25.10 - ATHSCL HEART DISEASE OF [place] CORONARY ARTERY W/O ANG PCTRS Status: Chronic (3) HTN (hypertension) Code(s): I10 - ESSENTIAL (PRIMARY) HYPERTENSION Status: Chronic Qualifiers: Hypertension type: essential hypertension Qualified Code(s): I10 - Essential (primary) hypertension (4) Elevated troponin Code(s): R79.89 - OTHER SPECIFIED ABNORMAL FINDINGS OF BLOOD CHEMISTRY Status: Resolved (5) Aortic stenosis Code(s): I35.0 - NONRHEUMATIC AORTIC (VALVE) STENOSIS Status: Acute - Plan Plan: Placed under observation. Continue to trend troponin Start aspirin 81 mg daily Obtain echocardiogram Cardiology consult. Avoid beta-ana maría and nitrate for now. Check lipid profile. Continue antihypertensives. Patient states she is DNR.
[2020-05-31 06:07] LABS: CKMB 1.1 ng/mL (0-6.6)
[2020-05-31 07:52] LABS: Troponin I 0.032 ng/mL (< 0.028)
[2020-05-31] MEDS ORDERED: Famotidine 20 MG TAB PO SCH (09:00)
[2020-05-31] MEDS ORDERED: Aspirin 81 mg Enteric Coated Tablet PO SCH (09:00)
[2020-05-31] MEDS ORDERED: Famotidine 20 MG TAB ONE (09:51)
[2020-05-31] MEDS ORDERED: Aspirin Chewable 81 MG TAB ONE (09:51)
--- NOTE | 2020-05-31 11:29 | PDOC.EVN ---
Event Note - Event Note Event Note: I interviewed and examined the patient. She reports no further chest pain. States that she actually does want resuscitation, but not prolonged life support so status changed back to full code. Patient hasn't been on Imdur for some time, was put on but Dr. Ivory last year for angina when she didn't want a catheterization. Never told it was causing a problem, just stopped at some point. I did send a new Rx to her pharmacy to restart. Patient adamant that she wants to go home right now. Refusing to wait to see Dr. Marcano. States she wants no procedures or interventions, just wants to be left alone at her assisted living, but doesn't want to be DNAR or hospice. I recommended strongly that she wait for Dr. Marcano to see her and that she could have a heart attack or if she leaves, but she is insistent and wants to sign out AMA.
[2020-05-31 11:31] LABS: Troponin I 0.026 ng/mL (< 0.028)
--- NOTE | 2020-05-31 16:41 | PDOC.DS.DS ---
Provider - Provider Date of Admission: 05/31/20 04:54 Date of Discharge: 05/31/20 (Left AMA) Admitting Provider: Lizandro Liu MD Consultations: None Primary Care Physician: Lucho Patel Course - Hospital Course Hospital Course: Chest pain resolved in ER Resuscitation Status: 05/31/20 11:11 Resuscitation Status Routine Resuscitation Status: FULL: Full Resuscitation Discussed with: Patient Additional comments: She doesn't want prolonged life support, but does want resucitation if her heart stops - Labs Lab Results: Abnormal Lab Results - Last 48 hrs 05/31/20 04:54: Troponin I 0.030 H 05/31/20 07:05: Troponin I 0.032 H - Physical Exam Physical Exam: The patient was seen and examined on the day of discharge. Problem - Discharge Plan Assessment: Chest pain with known CAD. Needs to be seen by cardiology but patient refusing and signed out AMA - Problem (1) Angina at rest Code(s): I20.8 - OTHER FORMS OF ANGINA PECTORIS Status: Acute (2) Coronary atherosclerosis of [place] coronary artery Code(s): I25.10 - ATHSCL HEART DISEASE OF [place] CORONARY ARTERY W/O ANG PCTRS Status: Chronic Plan - Discharge Medications Prescriptions: Isosorbide Mononitrate [Imdur ER] 30 mg PO DAILY #30 tab Home Medications: Medication Instructions Recorded Confirmed Type Clopidogrel Bisulfate [Clopidogrel] 1 tab PO DAILY 03/01/14 04/27/20 History ALPRAZolam [Xanax] 0.5 mg PO TID PRN MDD BID TO TID 08/06/14 04/27/20 History Ipratropium [Atrovent HFA] 1 puff INH QID PRN 03/03/17 04/27/20 History Divalproex Sodium [Depakote] 250 mg PO BID 06/13/19 04/27/20 History Levothyroxine Sodium [Synthroid] 50 mcg PO DAILY 06/13/19 04/27/20 History Lidocaine [Lidocaine 5% Ointment] 1 applic TOP PRN PRN 06/13/19 04/27/20 History Metoprolol Tartrate 1 tab PO BID 06/13/19 04/27/20 History hydrALAZINE [Apresoline] 50 mg PO BID tab 10/07/19 04/27/20 Rx Triamcinolone Acetonide [Kenalog 1 applic TOP BID PRN 11/04/19 04/27/20 History 0.1% Cream] Amlodipine [Norvasc] 10 mg PO DAILY 11/25/19 04/27/20 History Calcium Carbonate [Tums Extra 2 tablet PO DAILY PRN 11/25/19 04/27/20 History Strength] Cholecalciferol (Vitamin D3) 1,000 unit PO DAILY 11/25/19 04/27/20 History [Vitamin D] Docusate Sodium [Docusil] 100 - 300 mg PO DAILY PRN 11/25/19 04/27/20 History Esomeprazole Magnesium [Nexium] 40 mg PO DAILY 11/25/19 04/27/20 History Acetaminophen [Tylenol Regular 650 mg PO Q4H PRN 11/26/19 04/27/20 History Strength] Simvastatin [Zocor] 40 mg PO HS 04/27/20 04/27/20 History fentaNYL [Duragesic] 50 mcg TD Q3D #1 patch 04/29/20 Rx Isosorbide Mononitrate [Imdur ER] 30 mg PO DAILY #30 tab 05/31/20 Rx Allergies: codeine Allergy (Mild, Verified 11/26/19 00:03) Rash sulfamethoxazole [From Bactrim] Allergy (Mild, Verified 11/26/19 00:03) Rash trimethoprim [From Bactrim] Allergy (Mild, Verified 11/26/19 00:03) Rash prednisone Allergy (Verified 04/27/20 18:30) - Discharge Instructions Activity:: Activity as Tolerated Nourishment:: Heart Healthy Diet, Low Sodium Diet Therapies:: Not Applicable Equipment/Supplies:: Not Applicable IV Therapy:: Not Applicable - Follow up Plan Referrals: Corey Nnuez MD [Primary Care Provider] - 7 Days Tam Ivory MD [Active] - 2-3 Weeks Disposition: SENIOR CARE/ASSISTED LIVING Quality - Care Measures CORE MEASURES:: N/A
[2020-05-31 17:38] LABS: SARS-CoV-2 MS2 Positive; SARS-CoV-2 N Gene Negative; SARS-CoV-2 S Gene Negative; SARS-CoV-2 by NAA Not Detected (NotDetected); SARS-CoV-2 orf1ab Negative
== END 2020-05-31 12:22 ==
LOC: ERS 04:26 → ERHOLD 04:54
PROVIDERS: ADMIT Internal Medicine; ATTEND Emergency Medicine
DX: I25.118 Atherosclerotic heart disease of native coronary artery with other forms of angina pectoris (principal); I12.9 Hypertensive chronic kidney disease with stage 1 through stage 4 chronic kidney disease, or unspecified chronic kidney disease; N18.9 Chronic kidney disease, unspecified; J44.9 Chronic obstructive pulmonary disease, unspecified; G43.909 Migraine, unspecified, not intractable, without status migrainosus; K21.9 Gastro-esophageal reflux disease without esophagitis; F31.9 Bipolar disorder, unspecified; I73.9 Peripheral vascular disease, unspecified; I35.0 Nonrheumatic aortic (valve) stenosis; F17.210 Nicotine dependence, cigarettes, uncomplicated; R79.89 Other specified abnormal findings of blood chemistry; G89.29 Other chronic pain; M54.9 Dorsalgia, unspecified; Z53.29 Procedure and treatment not carried out because of patient's decision for other reasons; Z86.73 Personal history of transient ischemic attack (TIA), and cerebral infarction without residual deficits; Z91.5 Personal history of self-harm; Z79.02 Long term (current) use of antithrombotics/antiplatelets; Z79.899 Other long term (current) drug therapy; Z88.1 Allergy status to other antibiotic agents; Z88.2 Allergy status to sulfonamides; Z88.5 Allergy status to narcotic agent; Z88.8 Allergy status to other drugs, medicaments and biological substances; Z95.1 Presence of aortocoronary bypass graft; Z20.828 Contact with and (suspected) exposure to other viral communicable diseases
CPT/HCPCS: 82553; 84484; 99285; G0378; U0003; 36415; 87635

== ENCOUNTER 2021-01-08 08:53 | Day surgery (SDC) | payer MEDICARE, MEDICAID ==
[2021-01-07 13:14] VITALS: BMI 24.2
[2021-01-08] MEDS ORDERED: PROPOFOL 200 MG/20 ML VIAL ONE (11:45)
== END 2021-01-08 12:45 ==
LOC: SDC 08:53
PROVIDERS: ATTEND Internal Medicine Gastroenterology
PROC: 0DB68ZX Excision of Stomach, Via Natural or Artificial Opening Endoscopic, Diagnostic (ICD-10-PCS; principal; 2021-01-08)
PROC: 0D747ZZ Dilation of Esophagogastric Junction, Via Natural or Artificial Opening (ICD-10-PCS; 2021-01-08)
DX: K21.00 Gastro-esophageal reflux disease with esophagitis, without bleeding (principal); K31.89 Other diseases of stomach and duodenum; K22.2 Esophageal obstruction; J44.9 Chronic obstructive pulmonary disease, unspecified; I25.10 Atherosclerotic heart disease of native coronary artery without angina pectoris; E03.9 Hypothyroidism, unspecified; E78.5 Hyperlipidemia, unspecified; I73.9 Peripheral vascular disease, unspecified; I10 Essential (primary) hypertension; F17.210 Nicotine dependence, cigarettes, uncomplicated; Z86.73 Personal history of transient ischemic attack (TIA), and cerebral infarction without residual deficits; Z79.02 Long term (current) use of antithrombotics/antiplatelets; Z79.899 Other long term (current) drug therapy; Z88.1 Allergy status to other antibiotic agents; Z88.2 Allergy status to sulfonamides; Z88.5 Allergy status to narcotic agent; Z95.1 Presence of aortocoronary bypass graft
CPT/HCPCS: 88305

== ENCOUNTER 2021-04-19 18:55 | Inpatient (IN) | payer MEDICARE, MEDICAID ==
[2021-04-19 19:37] LABS: #Lymphocytes 1.1 thou/uL (1.20-3.40); #Monocytes 1.5 thou/uL (0.11-0.59); #Neutrophils 8.5 thou/uL (1.40-6.50); %Basophils 0.3 % (0.0-1.0); %Eosinophils 0.3 % (0.0-10.0); %Monocytes 13.5 % (0.0-10.0); %Neutrophils 75.9 % (42.0-75.0); Hemoglobin 13.6 g/dL (12.0-16.0); Mean Corpuscular HGB CONC 32.2 g/dL (32.0-36.0); Mean Corpuscular Hemoglobin 30.3 pg (27.0-31.0); Mean Corpuscular Volume 94.2 fL (78.0-98.0); Mean Platelet Volume 7.7 fL (7.4-10.4); Platelet Count 256 thou/uL (130-400); RBC Distribution Width 16.3 % (11.5-14.5); Red Blood Cell (RBC) Count 4.48 mill/uL (4.20-5.40); White Blood Cell (WBC) Count 11.2 thou/uL (4.8-10.8)
[2021-04-19 19:57] LABS: ALT (SGPT) 7 U/L (8-55); AST (SGOT) 22 U/L (5-34); Albumin 2.9 g/dL (3.4-4.8); Alkaline Phosphatase 80 U/L (40-110); Anion Gap 15 mmol/L (10-20); BUN (Urea Nitrogen) 60 mg/dL (9.8-20.1); Bilirubin, Total 0.6 mg/dL (0.2-1.2); Calc. Creatinine Clearance 0 mL/min (70-130); Calcium 8.8 mg/dL (7.8-10.44); Carbon Dioxide 28 mmol/L (23-31); Chloride 98 mmol/L (98-107); Globulin 4.4 g/dL (2.4-3.5); Glucose 111 mg/dL (83-110); Potassium 4.6 mmol/L (3.5-5.1); Protein, Total 7.3 g/dL (5.8-8.1); Sodium 136 mmol/L (136-145)
[2021-04-19 20:19] LABS: CKMB 2.4 ng/mL (0-6.6)
[2021-04-19] MEDS ORDERED: Guaifenesin DM 100-10/5 ML UDCUP PO PRN (22:55)
[2021-04-19] MEDS ORDERED: Ondansetron PF 4 MG/2 ML Vial IVP PRN (22:55)
[2021-04-19] MEDS ORDERED: Senokot S 8.6-50 MG TAB PO PRN (22:55)
[2021-04-19] MEDS ORDERED: Pharmacy to Dose REMDESIVIR IVPB PRN (23:04)
[2021-04-19] MEDS ORDERED: Melatonin 3 MG TAB PO PRN (23:04)
[2021-04-19] MEDS ORDERED: Enoxaparin Sodium 30 MG/0.3 ML SYRINGE SC SCH (23:59)
[2021-04-20] MEDS ORDERED: diphenhydrAMINE 25 MG in Sodium Chloride 0.9% 50 ML IVPB PRN (00:08)
[2021-04-20] MEDS ORDERED: Albuterol Sulfate 2.5 mg/3 ml Neb NEB PRN (00:09)
[2021-04-20] MEDS ORDERED: Ipratropium Oral Inhaler INH PRN (00:09)
[2021-04-20 00:17] LABS: Troponin I 0.125 ng/mL (< 0.028)
[2021-04-20] MEDS ORDERED: hydrALAZINE 20 MG/ML VIAL SLOW IVP PRN (00:17)
[2021-04-20] MEDS ORDERED: Albuterol 200 PUFF (6.7GM INHALER) INH PRN (00:19)
[2021-04-20] MEDS ORDERED: Dexamethasone 4 mg/ml Vial SLOW IVP SCH (00:30)
[2021-04-20 00:49] VITALS: BMI 20.4
[2021-04-20] MEDS: Nicotine 21 MG PATCH TD SCH ×2 (01:09→23:35)
[2021-04-20] MEDS: Azithromycin 500 MG in Sodium Chloride 0.9% 250 ML 250 ML IVPB SCH ×2 (01:10→23:35)
[2021-04-20] MEDS: cefTRIAXone\\ROCEPHIN 2 GM in Sodium Chloride 0.9% 100 ML IVPB SCH ×2 (01:10→23:36)
[2021-04-20] MEDS: traMADol HCl 50 MG TAB PO PRN (04:47)
[2021-04-20] MEDS: Levothyroxine Sodium 50 MCG TAB PO SCH (05:53)
[2021-04-20] MEDS: Mometasone 200 MCG/Formoterol 5 MCG 120 PUFF INHALER INH SCH ×2 (06:29→17:53)
[2021-04-20 07:45] LABS: #Lymphocytes 0.7 thou/uL (1.20-3.40); %Eosinophils 0.4 % (0.0-10.0); %Lymphocytes 6.9 % (21.0-51.0); %Monocytes 9.9 % (0.0-10.0); %Neutrophils 82.8 % (42.0-75.0); Hemoglobin 12.7 g/dL (12.0-16.0); Mean Corpuscular Hemoglobin 30.7 pg (27.0-31.0); Platelet Count 220 thou/uL (130-400); RBC Distribution Width 16.2 % (11.5-14.5); Red Blood Cell (RBC) Count 4.13 mill/uL (4.20-5.40); White Blood Cell (WBC) Count 9.7 thou/uL (4.8-10.8)
[2021-04-20 08:03] LABS: ALT (SGPT) Less than 7 U/L (8-55); AST (SGOT) 18 U/L (5-34); Albumin 2.6 g/dL (3.4-4.8); Alkaline Phosphatase 76 U/L (40-110); Anion Gap 13 mmol/L (10-20); BUN (Urea Nitrogen) 61 mg/dL (9.8-20.1); Bilirubin, Total 0.3 mg/dL (0.2-1.2); Calc. Creatinine Clearance 22 mL/min (70-130); Calcium 8.2 mg/dL (7.8-10.44); Carbon Dioxide 26 mmol/L (23-31); Chloride 98 mmol/L (98-107); Globulin 3.9 g/dL (2.4-3.5); Glucose 137 mg/dL (83-110); Potassium 4.3 mmol/L (3.5-5.1); Protein, Total 6.5 g/dL (5.8-8.1); Sodium 133 mmol/L (136-145)
[2021-04-20] MEDS: Clopidogrel Bisulfate 75 MG TAB PO SCH (08:10)
[2021-04-20] MEDS: Ascorbic Acid 500 mg Chewable Tablet PO SCH (08:10)
[2021-04-20] MEDS: PARoxetine 20 MG TAB PO SCH (08:10)
[2021-04-20] MEDS: ALPRAZolam 0.5 MG TAB PO SCH ×2 (08:10→21:47)
[2021-04-20] MEDS: Divalproex Sodium 250 MG (DR) TAB PO SCH ×2 (08:10→21:43)
[2021-04-20] MEDS: Dexamethasone 4 mg/ml Vial SLOW IVP SCH ×2 (08:12→21:43)
[2021-04-20] MEDS: hydrALAZINE 25 MG TAB PO SCH ×2 (08:12→22:45)
[2021-04-20] MEDS: Metoprolol Tartrate 25 MG TAB PO SCH ×2 (08:12→22:46)
[2021-04-20] MEDS: Zinc Sulfate 220 MG CAP PO SCH (08:12)
[2021-04-20] MEDS: Cholecalciferol (Vitamin D3) 400 UNITS TAB PO SCH (08:21)
[2021-04-20] MEDS ORDERED: FLU VACC QS2021-22(65YR UP)/PF 240 MCG/0.7 ML SYRINGE IM ONE (09:00)
[2021-04-20] MEDS ORDERED: Furosemide 20 MG TAB PO SCH (09:00)
[2021-04-20] MEDS ORDERED: Famotidine/PF 20 mg/2ml Vial SLOW IVP SCH (09:00)
[2021-04-20] MEDS ORDERED: Sodium Chloride 0.9% 1,000 ML IV SCH (10:15)
[2021-04-20 14:42] LABS: ALT (SGPT) Less than 7 U/L (8-55); AST (SGOT) 17 U/L (5-34); Albumin 2.4 g/dL (3.4-4.8); Alkaline Phosphatase 72 U/L (40-110); Anion Gap 14 mmol/L (10-20); BUN (Urea Nitrogen) 63 mg/dL (9.8-20.1); Bilirubin, Total 0.2 mg/dL (0.2-1.2); CRP (Inflammatory) 19.13 mg/dL (= or < 0.5); Calc. Creatinine Clearance 23 mL/min (70-130); Carbon Dioxide 24 mmol/L (23-31); Chloride 98 mmol/L (98-107); Glucose 181 mg/dL (83-110); Potassium 4.4 mmol/L (3.5-5.1); Protein, Total 6.4 g/dL (5.8-8.1); Sodium 132 mmol/L (136-145)
[2021-04-20 17:57] LABS: Bilirubin Negative (Negative); Blood, Urine 1+ (Negative); Clarity Extra Turbid (Clear); Glucose, Urine (Dipstick) Normal (Negative); Ketone, Urine Negative (Negative); Leukocyte 500 Leu/uL (Negative); Nitrite Negative (Negative); Protein, Urine (Dipstick) 50 mg/dL (Neg-Trace); Specific Gravity, Urine 1.013 (1.002-1.036); Urobilinogen Normal mg/dL (Less than 2); pH, Urine 5.5 (5.0-9.0)
[2021-04-20 18:01] LABS: Bacteria/HPF 2+ HPF (None Seen); Transitional Epithelial 0-3 HPF (None Seen)
[2021-04-20] MEDS: Atorvastatin Calcium 20 MG TAB PO SCH (21:43)
[2021-04-20] MEDS: Enoxaparin Sodium 30 MG/0.3 ML SYRINGE SC SCH (21:44)
[2021-04-21] MEDS: Mometasone 200 MCG/Formoterol 5 MCG 120 PUFF INHALER INH SCH ×2 (05:42→18:25)
[2021-04-21] MEDS: Levothyroxine Sodium 50 MCG TAB PO SCH (05:42)
[2021-04-21 06:45] LABS: #Lymphocytes 0.7 thou/uL (1.20-3.40); #Monocytes 0.2 thou/uL (0.11-0.59); #Neutrophils 6.4 thou/uL (1.40-6.50); %Basophils 0.1 % (0.0-1.0); %Eosinophils 0.2 % (0.0-10.0); %Lymphocytes 9.9 % (21.0-51.0); %Monocytes 3.3 % (0.0-10.0); %Neutrophils 86.5 % (42.0-75.0); Hemoglobin 11.4 g/dL (12.0-16.0); Mean Corpuscular HGB CONC 31.6 g/dL (32.0-36.0); Mean Corpuscular Hemoglobin 29.5 pg (27.0-31.0); Mean Corpuscular Volume 93.3 fL (78.0-98.0); Mean Platelet Volume 7.9 fL (7.4-10.4); Platelet Count 236 thou/uL (130-400); RBC Distribution Width 16.1 % (11.5-14.5); Red Blood Cell (RBC) Count 3.85 mill/uL (4.20-5.40); White Blood Cell (WBC) Count 7.4 thou/uL (4.8-10.8)
[2021-04-21] MEDS: ALPRAZolam 0.5 MG TAB PO SCH ×2 (08:44→20:28)
[2021-04-21] MEDS: Zinc Sulfate 220 MG CAP PO SCH (08:44)
[2021-04-21] MEDS: Clopidogrel Bisulfate 75 MG TAB PO SCH (08:45)
[2021-04-21] MEDS: Dexamethasone 4 mg/ml Vial SLOW IVP SCH ×2 (08:45→20:29)
[2021-04-21] MEDS: PARoxetine 20 MG TAB PO SCH (08:45)
[2021-04-21] MEDS: Divalproex Sodium 250 MG (DR) TAB PO SCH ×2 (08:45→20:29)
[2021-04-21] MEDS: Cholecalciferol (Vitamin D3) 400 UNITS TAB PO SCH (08:45)
[2021-04-21] MEDS: Ascorbic Acid 500 mg Chewable Tablet PO SCH (08:45)
[2021-04-21] MEDS: Metoprolol Tartrate 25 MG TAB PO SCH ×2 (08:46→20:31)
[2021-04-21] MEDS: hydrALAZINE 25 MG TAB PO SCH ×2 (08:46→20:30)
[2021-04-21] MEDS: Azithromycin 250 MG TAB PO SCH (20:28)
[2021-04-21] MEDS: Atorvastatin Calcium 20 MG TAB PO SCH (20:28)
[2021-04-21] MEDS: Enoxaparin Sodium 30 MG/0.3 ML SYRINGE SC SCH (20:29)
[2021-04-21] MEDS: Nicotine 21 MG PATCH TD SCH (20:30)
[2021-04-22] MEDS: cefTRIAXone\\ROCEPHIN 2 GM in Sodium Chloride 0.9% 100 ML IVPB SCH
[2021-04-22] MEDS: Levothyroxine Sodium 50 MCG TAB PO SCH (05:10)
[2021-04-22] MEDS: Mometasone 200 MCG/Formoterol 5 MCG 120 PUFF INHALER INH SCH ×2 (05:10→18:33)
[2021-04-22] MEDS: Clopidogrel Bisulfate 75 MG TAB PO SCH (08:11)
[2021-04-22] MEDS: ALPRAZolam 0.5 MG TAB PO SCH ×2 (08:11→21:31)
[2021-04-22] MEDS: Dexamethasone 4 mg/ml Vial SLOW IVP SCH ×2 (08:12→22:32)
[2021-04-22] MEDS: Cholecalciferol (Vitamin D3) 400 UNITS TAB PO SCH (08:12)
[2021-04-22] MEDS: PARoxetine 20 MG TAB PO SCH (08:12)
[2021-04-22] MEDS: Divalproex Sodium 250 MG (DR) TAB PO SCH ×2 (08:12→22:32)
[2021-04-22] MEDS: Ascorbic Acid 500 mg Chewable Tablet PO SCH (08:12)
[2021-04-22] MEDS: Zinc Sulfate 220 MG CAP PO SCH (08:12)
[2021-04-22] MEDS: hydrALAZINE 25 MG TAB PO SCH ×2 (08:13→22:34)
[2021-04-22] MEDS: Metoprolol Tartrate 25 MG TAB PO SCH ×2 (08:13→22:34)
[2021-04-22] MEDS: Acetaminophen 325 MG TAB PO PRN (17:21)
[2021-04-22] MEDS: Atorvastatin Calcium 20 MG TAB PO SCH (21:31)
[2021-04-22] MEDS: Azithromycin 250 MG TAB PO SCH (21:31)
[2021-04-22] MEDS: Enoxaparin Sodium 30 MG/0.3 ML SYRINGE SC SCH (22:33)
[2021-04-22] MEDS: Nicotine 21 MG PATCH TD SCH (23:32)
[2021-04-22] MEDS: traMADol HCl 50 MG TAB PO PRN (23:33)
[2021-04-23] MEDS: cefTRIAXone\\ROCEPHIN 2 GM in Sodium Chloride 0.9% 100 ML IVPB SCH ×2 (00:48→23:34)
[2021-04-23] MEDS: Levothyroxine Sodium 50 MCG TAB PO SCH (06:08)
[2021-04-23] MEDS: Mometasone 200 MCG/Formoterol 5 MCG 120 PUFF INHALER INH SCH ×2 (06:08→18:19)
[2021-04-23] MEDS: Metoprolol Tartrate 25 MG TAB PO SCH ×2 (09:15→20:49)
[2021-04-23] MEDS: Ascorbic Acid 500 mg Chewable Tablet PO SCH (09:15)
[2021-04-23] MEDS: Divalproex Sodium 250 MG (DR) TAB PO SCH ×2 (09:15→20:23)
[2021-04-23] MEDS: Zinc Sulfate 220 MG CAP PO SCH (09:15)
[2021-04-23] MEDS: Clopidogrel Bisulfate 75 MG TAB PO SCH (09:15)
[2021-04-23] MEDS: PARoxetine 20 MG TAB PO SCH (09:15)
[2021-04-23] MEDS: ALPRAZolam 0.5 MG TAB PO SCH ×2 (09:16→20:22)
[2021-04-23] MEDS: hydrALAZINE 25 MG TAB PO SCH ×2 (09:16→20:23)
[2021-04-23] MEDS: Cholecalciferol (Vitamin D3) 400 UNITS TAB PO SCH (09:16)
[2021-04-23] MEDS: Dexamethasone 4 mg/ml Vial SLOW IVP SCH ×2 (09:20→20:23)
[2021-04-23 10:41] LABS: ALT (SGPT) 7 U/L (8-55); AST (SGOT) 11 U/L (5-34); Albumin 2.6 g/dL (3.4-4.8); Alkaline Phosphatase 54 U/L (40-110); Anion Gap 12 mmol/L (10-20); BUN (Urea Nitrogen) 50 mg/dL (9.8-20.1); Bilirubin, Total 0.2 mg/dL (0.2-1.2); CRP (Inflammatory) 2.77 mg/dL (= or < 0.5); Calc. Creatinine Clearance 33 mL/min (70-130); Calcium 8.7 mg/dL (7.8-10.44); Carbon Dioxide 30 mmol/L (23-31); Chloride 104 mmol/L (98-107); Globulin 3.4 g/dL (2.4-3.5); Glucose 112 mg/dL (83-110); Potassium 4.1 mmol/L (3.5-5.1); Sodium 142 mmol/L (136-145)
[2021-04-23] MEDS: Atorvastatin Calcium 20 MG TAB PO SCH (20:22)
[2021-04-23] MEDS: Enoxaparin Sodium 30 MG/0.3 ML SYRINGE SC SCH (20:22)
[2021-04-23] MEDS: Azithromycin 250 MG TAB PO SCH (20:22)
[2021-04-23] MEDS: traMADol HCl 50 MG TAB PO PRN (21:14)
[2021-04-23] MEDS: Nicotine 21 MG PATCH TD SCH (23:33)
[2021-04-24] MEDS: Mometasone 200 MCG/Formoterol 5 MCG 120 PUFF INHALER INH SCH (06:18)
[2021-04-24] MEDS: Levothyroxine Sodium 50 MCG TAB PO SCH (06:18)
[2021-04-24] MEDS: Acetaminophen 325 MG TAB PO PRN (06:32)
[2021-04-24] MEDS: Clopidogrel Bisulfate 75 MG TAB PO SCH (08:15)
[2021-04-24] MEDS: Cholecalciferol (Vitamin D3) 400 UNITS TAB PO SCH (08:15)
[2021-04-24] MEDS: Zinc Sulfate 220 MG CAP PO SCH (08:15)
[2021-04-24] MEDS: Divalproex Sodium 250 MG (DR) TAB PO SCH (08:15)
[2021-04-24] MEDS: hydrALAZINE 25 MG TAB PO SCH (08:15)
[2021-04-24] MEDS: Ascorbic Acid 500 mg Chewable Tablet PO SCH (08:15)
[2021-04-24] MEDS: ALPRAZolam 0.5 MG TAB PO SCH (08:15)
[2021-04-24] MEDS: PARoxetine 20 MG TAB PO SCH (08:16)
[2021-04-24] MEDS: Dexamethasone 4 mg/ml Vial SLOW IVP SCH (08:22)
[2021-04-24] MEDS: Metoprolol Tartrate 25 MG TAB PO SCH (08:28)
[2021-04-24] MEDS: cefTRIAXone\\ROCEPHIN 2 GM in Sodium Chloride 0.9% 100 ML IVPB SCH (10:16)
[2021-04-24 20:20] VITALS: BP 155/64; TEMP 97.9
== END 2021-04-24 20:18 | disposition home or self-care (01) | DRG 177 ==
LOC: ERS 18:55 → T4-B 22:02
PROVIDERS: ADMIT Family Medicine; ATTEND Internal Medicine
PROC: 8E0ZXY6 Isolation (ICD-10-PCS; principal; 2021-04-19)
DX: U07.1 COVID-19 (principal); Z66 Do not resuscitate; Z23 Encounter for immunization; J12.82 Pneumonia due to coronavirus disease 2019; J96.01 Acute respiratory failure with hypoxia; J44.0 Chronic obstructive pulmonary disease with (acute) lower respiratory infection; N17.9 Acute kidney failure, unspecified; N18.4 Chronic kidney disease, stage 4 (severe); E87.1 Hypo-osmolality and hyponatremia; E03.9 Hypothyroidism, unspecified; E78.5 Hyperlipidemia, unspecified; I25.10 Atherosclerotic heart disease of native coronary artery without angina pectoris; K21.9 Gastro-esophageal reflux disease without esophagitis; M81.0 Age-related osteoporosis without current pathological fracture; G89.29 Other chronic pain; M54.9 Dorsalgia, unspecified; G47.00 Insomnia, unspecified; I35.0 Nonrheumatic aortic (valve) stenosis; G43.909 Migraine, unspecified, not intractable, without status migrainosus; R79.89 Other specified abnormal findings of blood chemistry; I12.9 Hypertensive chronic kidney disease with stage 1 through stage 4 chronic kidney disease, or unspecified chronic kidney disease; D63.1 Anemia in chronic kidney disease; E88.09 Other disorders of plasma-protein metabolism, not elsewhere classified; Z86.73 Personal history of transient ischemic attack (TIA), and cerebral infarction without residual deficits; Z88.5 Allergy status to narcotic agent; Z88.2 Allergy status to sulfonamides; Z88.8 Allergy status to other drugs, medicaments and biological substances; Z79.899 Other long term (current) drug therapy; Z79.02 Long term (current) use of antithrombotics/antiplatelets; Z79.890 Hormone replacement therapy; Z79.51 Long term (current) use of inhaled steroids; Z90.49 Acquired absence of other specified parts of digestive tract; Z95.1 Presence of aortocoronary bypass graft; Z98.51 Tubal ligation status; Z90.710 Acquired absence of both cervix and uterus; Z95.828 Presence of other vascular implants and grafts
CPT/HCPCS: 36415; 71045; 78451; 80053; 81001; 82553; 82728; 83930; 83935; 84300; 84484; 85025; 85379; 86140; 90471; 90732; 93005; 93970; 94664; 94760; A9540; G0009; J0456; J0696; J1100; J1650; J3490; J7050; S0028

== ENCOUNTER 2021-09-21 14:41 | Emergency (ER) | payer MEDICARE, MEDICAID ==
[~2021-09-21 14:41] MED LIST: Iopamidol-370 76% 500 ML 1 ML ONE
[2021-09-21 15:35] LABS: #Eosinphils 0.1 thou/uL (0.0-0.7); #Monocytes 0.7 thou/uL (0.11-0.59); #Neutrophils 2.6 thou/uL (1.40-6.50); %Basophils 0.5 % (0.0-1.0); %Eosinophils 2.1 % (0.0-10.0); %Lymphocytes 36.5 % (21.0-51.0); %Monocytes 13.3 % (0.0-10.0); %Neutrophils 47.7 % (42.0-75.0); Hemoglobin 8.7 g/dL (12.0-16.0); Mean Corpuscular HGB CONC 31.4 g/dL (32.0-36.0); Mean Corpuscular Volume 98.6 fL (78.0-98.0); Mean Platelet Volume 5.8 fL (7.4-10.4); Platelet Count 234 thou/uL (130-400); RBC Distribution Width 15.4 % (11.5-14.5); White Blood Cell (WBC) Count 5.4 thou/uL (4.8-10.8)
[2021-09-21 15:56] LABS: ALT (SGPT) 8 U/L (8-55); AST (SGOT) 13 U/L (5-34); Albumin 3.6 g/dL (3.4-4.8); Alkaline Phosphatase 65 U/L (40-110); Anion Gap 13 mmol/L (10-20); BUN (Urea Nitrogen) 29 mg/dL (9.8-20.1); Bilirubin, Total 0.2 mg/dL (0.2-1.2); Calc. Creatinine Clearance 0 mL/min (70-130); Calcium 8.5 mg/dL (7.8-10.44); Carbon Dioxide 22 mmol/L (23-31); Chloride 105 mmol/L (98-107); Globulin 3.4 g/dL (2.4-3.5); Glucose 74 mg/dL (83-110); Potassium 5.9 mmol/L (3.5-5.1); Sodium 134 mmol/L (136-145)
== END 2021-09-21 18:26 | disposition home or self-care (01) ==
LOC: ERS 14:41
DX: S51.011A Laceration without foreign body of right elbow, initial encounter (principal); S30.1XXA Contusion of abdominal wall, initial encounter; D64.9 Anemia, unspecified; I48.91 Unspecified atrial fibrillation; I25.10 Atherosclerotic heart disease of native coronary artery without angina pectoris; K21.9 Gastro-esophageal reflux disease without esophagitis; E03.9 Hypothyroidism, unspecified; E78.00 Pure hypercholesterolemia, unspecified; J44.9 Chronic obstructive pulmonary disease, unspecified; I12.9 Hypertensive chronic kidney disease with stage 1 through stage 4 chronic kidney disease, or unspecified chronic kidney disease; N18.9 Chronic kidney disease, unspecified; G43.909 Migraine, unspecified, not intractable, without status migrainosus; Z86.73 Personal history of transient ischemic attack (TIA), and cerebral infarction without residual deficits; Z87.891 Personal history of nicotine dependence; Z79.899 Other long term (current) drug therapy; W19.XXXA Unspecified fall, initial encounter
CPT/HCPCS: 36415; 70450; 72125; 74177; 80053; 85025; 86850; 86900; 86901; Q9967

== ENCOUNTER 2021-12-29 21:18 | Inpatient (IN) | payer MEDICARE, MEDICAID ==
[2021-12-29 22:43] LABS: #Eosinphils 0.2 thou/uL (0.0-0.7); #Lymphocytes 1.4 thou/uL (1.20-3.40); #Monocytes 0.4 thou/uL (0.11-0.59); #Neutrophils 1.9 thou/uL (1.40-6.50); %Basophils 0.5 % (0.0-1.0); %Eosinophils 4.4 % (0.0-10.0); %Lymphocytes 35.9 % (21.0-51.0); %Monocytes 10.5 % (0.0-10.0); %Neutrophils 48.7 % (42.0-75.0); Hemoglobin 8.6 g/dL (12.0-16.0); Mean Corpuscular HGB CONC 31.6 g/dL (32.0-36.0); Mean Corpuscular Hemoglobin 29.4 pg (27.0-31.0); Mean Corpuscular Volume 93.1 fL (78.0-98.0); Mean Platelet Volume 6.6 fL (7.4-10.4); Platelet Count 173 thou/uL (130-400); RBC Distribution Width 20.5 % (11.5-14.5); Red Blood Cell (RBC) Count 2.93 mill/uL (4.20-5.40); White Blood Cell (WBC) Count 3.9 thou/uL (4.8-10.8)
[2021-12-29 23:04] LABS: ALT (SGPT) 7 U/L (8-55); AST (SGOT) 13 U/L (5-34); Albumin 3.5 g/dL (3.4-4.8); Alkaline Phosphatase 47 U/L (40-110); Anion Gap 10 mmol/L (10-20); BUN (Urea Nitrogen) 32 mg/dL (9.8-20.1); Bilirubin, Total 0.4 mg/dL (0.2-1.2); Calc. Creatinine Clearance 0 mL/min (70-130); Calcium 8.5 mg/dL (7.8-10.44); Carbon Dioxide 24 mmol/L (23-31); Chloride 109 mmol/L (98-107); Globulin 3.2 g/dL (2.4-3.5); Glucose 76 mg/dL (83-110); Potassium 5.2 mmol/L (3.5-5.1); Protein, Total 6.7 g/dL (5.8-8.1); Sodium 138 mmol/L (136-145)
[2021-12-30] MEDS ORDERED: Furosemide 20 MG/2 ML VIAL ONE (00:04)
[2021-12-30 02:18] LABS: Troponin I 0.016 ng/mL (< 0.028)
[2021-12-30] MEDS ORDERED: Acetaminophen 500 MG TAB PO PRN (04:37)
[2021-12-30] MEDS ORDERED: Acetaminophen 500 MG TAB PO SCH (04:45)
[2021-12-30] MEDS ORDERED: Acetaminophen 500 MG TAB ONE (04:57)
[2021-12-30 06:13] LABS: Troponin I 0.017 ng/mL (< 0.028)
[2021-12-30 09:06] VITALS: BMI 23.6
[2021-12-30] MEDS ORDERED: Senokot S 8.6-50 MG TAB PO PRN (09:31)
[2021-12-30] MEDS ORDERED: Bisacodyl 5 MG TAB PO PRN (09:31)
[2021-12-30] MEDS ORDERED: Acetaminophen 325 MG TAB PO PRN (09:31)
[2021-12-30] MEDS ORDERED: Ondansetron ODT 4 MG TAB PO PRN (09:31)
[2021-12-30] MEDS ORDERED: Aspirin Chewable 81 MG TAB PO SCH (10:00)
[2021-12-30] MEDS ORDERED: Docusate 100 MG CAP PO PRN (10:39)
[2021-12-30] MEDS ORDERED: ALPRAZolam 0.5 MG TAB PO PRN (10:39)
[2021-12-30] MEDS ORDERED: Nystatin Ointment 15 GM TUBE TOP PRN (10:39)
[2021-12-30] MEDS ORDERED: Betamethasone 0.1% Cream 45 GM TUBE TOP PRN (10:39)
[2021-12-30] MEDS ORDERED: Ipratropium Bromide 2.5 ml Neb NEB PRN (10:39)
[2021-12-30] MEDS: Mometasone 200 MCG/Formoterol 5 MCG 120 PUFF INHALER INH SCH (20:02)
[2021-12-30] MEDS: hydrALAZINE 25 MG TAB PO SCH (20:30)
[2021-12-30] MEDS: Furosemide 20 MG TAB PO SCH (20:33)
[2021-12-30] MEDS: traMADol HCl 50 MG TAB PO SCH (20:33)
[2021-12-30] MEDS: Atorvastatin Calcium 20 MG TAB PO SCH (20:33)
[2021-12-30] MEDS: Divalproex Sodium 250 MG (DR) TAB PO SCH (20:33)
[2021-12-31 05:08] LABS: #Eosinphils 0.1 thou/uL (0.0-0.7); #Lymphocytes 1.2 thou/uL (1.20-3.40); #Monocytes 0.4 thou/uL (0.11-0.59); %Basophils 0.3 % (0.0-1.0); %Eosinophils 3.9 % (0.0-10.0); %Lymphocytes 31.2 % (21.0-51.0); %Monocytes 11.4 % (0.0-10.0); %Neutrophils 53.1 % (42.0-75.0); Hemoglobin 10.2 g/dL (12.0-16.0); Mean Corpuscular HGB CONC 30.6 g/dL (32.0-36.0); Mean Corpuscular Volume 91.7 fL (78.0-98.0); Mean Platelet Volume 7.2 fL (7.4-10.4); Platelet Count 198 thou/uL (130-400); RBC Distribution Width 20.5 % (11.5-14.5); Red Blood Cell (RBC) Count 3.65 mill/uL (4.20-5.40); White Blood Cell (WBC) Count 3.7 thou/uL (4.8-10.8)
[2021-12-31 05:30] LABS: ALT (SGPT) 8 U/L (8-55); AST (SGOT) 15 U/L (5-34); Albumin 3.7 g/dL (3.4-4.8); Alkaline Phosphatase 57 U/L (40-110); Anion Gap 15 mmol/L (10-20); BUN (Urea Nitrogen) 31 mg/dL (9.8-20.1); Bilirubin, Total 0.4 mg/dL (0.2-1.2); Calc. Creatinine Clearance 25 mL/min (70-130); Calcium 9.3 mg/dL (7.8-10.44); Carbon Dioxide 23 mmol/L (23-31); Chloride 102 mmol/L (98-107); Globulin 3.8 g/dL (2.4-3.5); Glucose 93 mg/dL (83-110); Potassium 4.8 mmol/L (3.5-5.1); Protein, Total 7.5 g/dL (5.8-8.1); Sodium 135 mmol/L (136-145)
[2021-12-31] MEDS: Levothyroxine Sodium 50 MCG TAB PO SCH (06:17)
[2021-12-31] MEDS: Mometasone 200 MCG/Formoterol 5 MCG 120 PUFF INHALER INH SCH ×2 (08:00→19:53)
[2021-12-31] MEDS ORDERED: Enoxaparin Sodium 30 MG/0.3 ML SYRINGE SC SCH ×2 (09:00)
[2021-12-31] MEDS: Amlodipine 10 MG TAB PO SCH (09:22)
[2021-12-31] MEDS: Clopidogrel Bisulfate 75 MG TAB PO SCH (09:22)
[2021-12-31] MEDS: Divalproex Sodium 250 MG (DR) TAB PO SCH ×2 (09:22→20:56)
[2021-12-31] MEDS: Aspirin Chewable 81 MG TAB PO SCH (09:22)
[2021-12-31] MEDS: Escitalopram Oxalate 20 mg Tablet PO SCH (09:23)
[2021-12-31] MEDS: Furosemide 20 MG TAB PO SCH ×2 (09:23→20:56)
[2021-12-31] MEDS: hydrALAZINE 25 MG TAB PO SCH ×2 (09:23→20:52)
[2021-12-31] MEDS: traMADol HCl 50 MG TAB PO SCH ×2 (09:24→21:30)
[2021-12-31] MEDS: Atorvastatin Calcium 20 MG TAB PO SCH (20:56)
[2022-01-01 05:34] LABS: Anion Gap 14 mmol/L (10-20); BUN (Urea Nitrogen) 42 mg/dL (9.8-20.1); Calc. Creatinine Clearance 21 mL/min (70-130); Calcium 9.1 mg/dL (7.8-10.44); Carbon Dioxide 26 mmol/L (23-31); Chloride 102 mmol/L (98-107); Glucose 97 mg/dL (83-110); Magnesium 1.9 mg/dL (1.6-2.6); Potassium 4.3 mmol/L (3.5-5.1); Sodium 138 mmol/L (136-145)
[2022-01-01] MEDS: Levothyroxine Sodium 50 MCG TAB PO SCH (05:59)
[2022-01-01] MEDS: Mometasone 200 MCG/Formoterol 5 MCG 120 PUFF INHALER INH SCH (07:39)
[2022-01-01] MEDS: Aspirin Chewable 81 MG TAB PO SCH (09:15)
[2022-01-01] MEDS: traMADol HCl 50 MG TAB PO SCH (09:19)
[2022-01-01] MEDS: Clopidogrel Bisulfate 75 MG TAB PO SCH (09:19)
[2022-01-01] MEDS: Divalproex Sodium 250 MG (DR) TAB PO SCH (09:20)
[2022-01-01] MEDS: Escitalopram Oxalate 20 mg Tablet PO SCH (09:20)
[2022-01-01] MEDS: Amlodipine 10 MG TAB PO SCH (10:17)
[2022-01-01] MEDS: hydrALAZINE 25 MG TAB PO SCH (10:18)
[2022-01-01 11:57] VITALS: TEMP 97.7
[2022-01-01 16:10] VITALS: BP 123/57
[2022-01-01] MEDS ORDERED: hydrALAZINE 20 MG/ML VIAL SLOW IVP PRN (16:32)
== END 2022-01-01 17:22 | disposition home or self-care (01) | DRG 307 ==
LOC: ERS 21:18 → ERHOLD 12-30 00:34 → 2SW 12-30 12:38 → OBSVTOIN 12-31 18:25
PROVIDERS: ADMIT Internal Medicine; ATTEND Internal Medicine
DX: I35.0 Nonrheumatic aortic (valve) stenosis (principal); I13.0 Hypertensive heart and chronic kidney disease with heart failure and stage 1 through stage 4 chronic kidney disease, or unspecified chronic kidney disease; I50.32 Chronic diastolic (congestive) heart failure; R07.89 Other chest pain; Z66 Do not resuscitate; Z20.822 Contact with and (suspected) exposure to COVID-19; E03.9 Hypothyroidism, unspecified; D64.9 Anemia, unspecified; E78.5 Hyperlipidemia, unspecified; I25.10 Atherosclerotic heart disease of native coronary artery without angina pectoris; I12.9 Hypertensive chronic kidney disease with stage 1 through stage 4 chronic kidney disease, or unspecified chronic kidney disease; D63.1 Anemia in chronic kidney disease; I73.9 Peripheral vascular disease, unspecified; J44.9 Chronic obstructive pulmonary disease, unspecified; N18.30 Chronic kidney disease, stage 3 unspecified; E87.5 Hyperkalemia; Z95.1 Presence of aortocoronary bypass graft; Z88.5 Allergy status to narcotic agent; Z88.2 Allergy status to sulfonamides; Z88.1 Allergy status to other antibiotic agents; Z79.51 Long term (current) use of inhaled steroids; Z79.890 Hormone replacement therapy; Z79.899 Other long term (current) drug therapy; Z86.73 Personal history of transient ischemic attack (TIA), and cerebral infarction without residual deficits; Z90.49 Acquired absence of other specified parts of digestive tract; Z90.09 Acquired absence of other part of head and neck; Z87.891 Personal history of nicotine dependence
CPT/HCPCS: 36415; 71045; 80048; 80053; 83735; 83880; 84484; 85025; 93005; 93306; 94664; 94760; 96374; 97139; G0378; J1940; U0003; U0005

== ENCOUNTER 2022-01-27 15:24 | Inpatient (IN) | payer OTHER, MEDICARE, MEDICAID ==
[2022-01-27] MEDS ORDERED: hydrALAZINE 20 MG/ML VIAL SLOW IVP PRN (16:51)
[2022-01-27] MEDS ORDERED: Dextrose 5% in Water 1,000 ML IV PRN (16:51)
[2022-01-27] MEDS ORDERED: Dextrose 50% Abboject 50 ML SYRINGE SLOW IVP PRN (16:51)
[2022-01-27] MEDS ORDERED: Promethazine HCl 25 MG/ML VIAL IM PRN (16:51)
[2022-01-27] MEDS ORDERED: Ondansetron PF 4 MG/2 ML Vial IVP PRN (16:51)
[2022-01-27] MEDS ORDERED: Morphine 4 MG/ML VIAL ONE (16:52)
[2022-01-27] MEDS ORDERED: traMADol HCl 50 MG TAB PO PRN (16:58)
[2022-01-27] MEDS ORDERED: Cyclobenzaprine 10 MG TAB PO PRN (16:59)
[2022-01-27] MEDS ORDERED: traMADol HCl 50 MG TAB PO SCH (17:00)
[2022-01-27 18:06] LABS: #Eosinphils 0.1 thou/uL (0.0-0.7); #Lymphocytes 1.1 thou/uL (1.20-3.40); #Monocytes 0.7 thou/uL (0.11-0.59); #Neutrophils 4.6 thou/uL (1.40-6.50); %Basophils 0.2 % (0.0-1.0); %Eosinophils 1.7 % (0.0-10.0); %Lymphocytes 16.9 % (21.0-51.0); %Monocytes 10.1 % (0.0-10.0); %Neutrophils 71.1 % (42.0-75.0); Hemoglobin 11.3 g/dL (12.0-16.0); Mean Corpuscular HGB CONC 30.9 g/dL (32.0-36.0); Mean Corpuscular Hemoglobin 29.7 pg (27.0-31.0); Mean Corpuscular Volume 96.1 fL (78.0-98.0); Mean Platelet Volume 6.9 fL (7.4-10.4); Platelet Count 144 thou/uL (130-400); RBC Distribution Width 18.4 % (11.5-14.5); Red Blood Cell (RBC) Count 3.79 mill/uL (4.20-5.40); White Blood Cell (WBC) Count 6.5 thou/uL (4.8-10.8)
[2022-01-27 18:27] LABS: PTT 30.5 sec (22.9-36.1); Prothrombin Time 13.5 sec (12.0-14.7)
[2022-01-27] MEDS ORDERED: Sodium Chloride 0.9% 1,000 ML IV SCH (18:30)
[2022-01-27 18:54] LABS: Anion Gap 16 mmol/L (10-20); BUN (Urea Nitrogen) 48 mg/dL (9.8-20.1); Calc. Creatinine Clearance 0 mL/min (70-130); Calcium 10.1 mg/dL (7.8-10.44); Carbon Dioxide 25 mmol/L (23-31); Chloride 106 mmol/L (98-107); Estimated GFR 19; Glucose 96 mg/dL (83-110); Magnesium 1.8 mg/dL (1.6-2.6); Phosphorus 3.8 mg/dL (2.3-4.7); Potassium 6.3 mmol/L (3.5-5.1); Sodium 141 mmol/L (136-145)
[2022-01-27] MEDS: Morphine 2 MG/ML VIAL SLOW IVP PRN ×2 (20:54→23:21)
[2022-01-27] MEDS: Acetaminophen 500 MG TAB PO SCH (20:55)
[2022-01-27] MEDS: hydrALAZINE 25 MG TAB PO SCH (20:55)
[2022-01-27] MEDS: Divalproex Sodium 250 MG (DR) TAB PO SCH (20:55)
[2022-01-27 21:10] VITALS: BMI 24.3
[2022-01-27] MEDS ORDERED: ALPRAZolam 0.5 MG TAB PO PRN (23:58)
[2022-01-28] MEDS: Acetaminophen 500 MG TAB PO SCH ×5 (00:17→23:34)
[2022-01-28] MEDS: Morphine 2 MG/ML VIAL SLOW IVP PRN ×4 (01:34→23:35)
[2022-01-28 04:12] LABS: Phosphorus 3.2 mg/dL (2.3-4.7)
[2022-01-28 04:38] LABS: Chloride 105 mmol/L (98-107); Potassium 5.1 mmol/L (3.5-5.1); Sodium 138 mmol/L (136-145)
[2022-01-28 04:39] LABS: Calcium 9.2 mg/dL (7.8-10.44); Glucose 93 mg/dL (83-110)
[2022-01-28 04:40] LABS: Anion Gap 15 mmol/L (10-20); Carbon Dioxide 23 mmol/L (23-31)
[2022-01-28 04:42] LABS: Calc. Creatinine Clearance 24 mL/min (70-130); Estimated GFR 22
[2022-01-28 04:43] LABS: BUN (Urea Nitrogen) 40 mg/dL (9.8-20.1)
[2022-01-28 04:44] LABS: Magnesium 1.6 mg/dL (1.6-2.6)
[2022-01-28 04:50] LABS: #Eosinphils 0.2 thou/uL (0.0-0.7); #Lymphocytes 1.5 thou/uL (1.20-3.40); #Monocytes 0.7 thou/uL (0.11-0.59); %Basophils 0.2 % (0.0-1.0); %Eosinophils 3.6 % (0.0-10.0); %Lymphocytes 28.1 % (21.0-51.0); %Monocytes 12.5 % (0.0-10.0); %Neutrophils 55.6 % (42.0-75.0); Hemoglobin 9.8 g/dL (12.0-16.0); Mean Corpuscular HGB CONC 31.3 g/dL (32.0-36.0); Mean Corpuscular Hemoglobin 30.1 pg (27.0-31.0); Mean Corpuscular Volume 96.4 fL (78.0-98.0); Mean Platelet Volume 7.4 fL (7.4-10.4); Platelet Count 120 thou/uL (130-400); RBC Distribution Width 18.4 % (11.5-14.5); Red Blood Cell (RBC) Count 3.24 mill/uL (4.20-5.40); White Blood Cell (WBC) Count 5.3 thou/uL (4.8-10.8)
[2022-01-28] MEDS: traMADol HCl 50 MG TAB PO SCH ×3 (05:59→21:08)
[2022-01-28] MEDS: Levothyroxine Sodium 50 MCG TAB PO SCH (06:00)
[2022-01-28] MEDS: Mometasone/Formoterol 200/5 60 PUFF INH SCH ×2 (07:20→18:58)
[2022-01-28] MEDS ORDERED: CEFAZOLIN 2 GM in Sodium Chloride 0.9% 100 ML IVPB SCH (07:30)
[2022-01-28] MEDS: Famotidine 20 MG TAB PO SCH (10:50)
[2022-01-28] MEDS: Escitalopram Oxalate 20 mg Tablet PO SCH (10:50)
[2022-01-28] MEDS: hydrALAZINE 25 MG TAB PO SCH ×2 (10:50→21:01)
[2022-01-28] MEDS: Divalproex Sodium 250 MG (DR) TAB PO SCH ×2 (10:50→21:07)
[2022-01-28] MEDS: Amlodipine 10 MG TAB PO SCH (10:50)
[2022-01-28] MEDS: Furosemide 20 MG TAB PO SCH (10:50)
[2022-01-28] MEDS ORDERED: Sodium Chloride 0.9% 1,000 ML IV SCH ×2 (14:00→23:55)
[2022-01-28] MEDS ORDERED: Magnesium 2 GM/50 ML(in water) 2 GM in Premix Bag 1 BAG IVPB SCH (14:15)
[2022-01-28] MEDS ORDERED: Dexmedetomidine 200 MCG/2 ML VIAL ONE ×2 (14:34→14:43)
[2022-01-28] MEDS ORDERED: Phenylephrine 10 MG/ML VIAL ONE (14:34)
[2022-01-28] MEDS ORDERED: CEFAZOLIN 2 GM VIAL ONE (14:38)
[2022-01-28] MEDS ORDERED: Sodium Chloride 0.9% 100 ML ONE (14:38)
[2022-01-28] MEDS ORDERED: PROPOFOL 200 MG/20 ML VIAL ONE (14:55)
[2022-01-28] MEDS ORDERED: ePHEDrine 50 MG/ML VIAL ONE (14:55)
[2022-01-28] MEDS ORDERED: fentaNYL Citrate/PF 100 MCG/2 ML SYRINGE ONE (14:59)
[2022-01-28] MEDS ORDERED: Ketamine 50 MG/ML (10ML VIAL) ONE (15:10)
[2022-01-28] MEDS ORDERED: EPINEPHrine 1 MG/ML AMP ONE (15:13)
[2022-01-28] MEDS ORDERED: Bupivacaine 0.25% HCL 30 ML VIAL ONE (15:13)
[2022-01-28] MEDS ORDERED: Albumin 5% 0 ML ONE (15:47)
[2022-01-28] MEDS ORDERED: Promethazine HCl 25 MG/ML VIAL IVPB PRN (15:56)
[2022-01-28] MEDS ORDERED: Promethazine HCl 25 MG/ML VIAL IM PRN (15:56)
[2022-01-28] MEDS ORDERED: Ondansetron HCl/PF 4 MG/2 ML Vial IVP PRN (15:56)
[2022-01-28] MEDS: CEFAZOLIN 2 GM in Sodium Chloride 0.9% 100 ML IVPB SCH (21:08)
[2022-01-28] MEDS: ALPRAZolam 0.5 MG TAB PO PRN (23:41)
[2022-01-29 04:26] LABS: #Eosinphils 0.3 thou/uL (0.0-0.7); #Lymphocytes 1.7 thou/uL (1.20-3.40); #Monocytes 0.8 thou/uL (0.11-0.59); #Neutrophils 3.9 thou/uL (1.40-6.50); %Basophils 0.6 % (0.0-1.0); %Eosinophils 5.2 % (0.0-10.0); %Lymphocytes 25.6 % (21.0-51.0); %Monocytes 11.2 % (0.0-10.0); %Neutrophils 57.4 % (42.0-75.0); Hemoglobin 9.7 g/dL (12.0-16.0); Mean Corpuscular HGB CONC 30.3 g/dL (32.0-36.0); Mean Corpuscular Hemoglobin 30.6 pg (27.0-31.0); Mean Platelet Volume 7.6 fL (7.4-10.4); Platelet Count 113 thou/uL (130-400); RBC Distribution Width 17.9 % (11.5-14.5); Red Blood Cell (RBC) Count 3.16 mill/uL (4.20-5.40); White Blood Cell (WBC) Count 6.7 thou/uL (4.8-10.8)
[2022-01-29] MEDS: Morphine 2 MG/ML VIAL SLOW IVP PRN (04:39)
[2022-01-29 04:52] LABS: Anion Gap 20 mmol/L (10-20); BUN (Urea Nitrogen) 38 mg/dL (9.8-20.1); Calc. Creatinine Clearance 22 mL/min (70-130); Calcium 8.3 mg/dL (7.8-10.44); Carbon Dioxide 15 mmol/L (23-31); Chloride 104 mmol/L (98-107); Estimated GFR 20; Glucose 123 mg/dL (83-110); Magnesium 1.8 mg/dL (1.6-2.6); Phosphorus 4.7 mg/dL (2.3-4.7); Potassium 5.3 mmol/L (3.5-5.1); Sodium 134 mmol/L (136-145)
[2022-01-29] MEDS: Acetaminophen 500 MG TAB PO SCH ×3 (05:59→18:36)
[2022-01-29] MEDS: Levothyroxine Sodium 50 MCG TAB PO SCH (06:00)
[2022-01-29] MEDS: traMADol HCl 50 MG TAB PO SCH ×3 (06:00→21:11)
[2022-01-29] MEDS: CEFAZOLIN 2 GM in Sodium Chloride 0.9% 100 ML IVPB SCH ×2 (06:00→14:32)
[2022-01-29] MEDS: Mometasone/Formoterol 200/5 60 PUFF INH SCH ×2 (07:29→19:22)
[2022-01-29] MEDS ORDERED: Magnesium 2 GM/50 ML(in water) 2 GM in Premix Bag 1 BAG IVPB SCH (09:00)
[2022-01-29] MEDS ORDERED: Sodium Chloride 0.9% 500 ML IV SCH ×2 (09:00→16:15)
[2022-01-29] MEDS: Amlodipine 10 MG TAB PO SCH (10:43)
[2022-01-29] MEDS: hydrALAZINE 25 MG TAB PO SCH ×2 (10:44→21:07)
[2022-01-29] MEDS: Famotidine 20 MG TAB PO SCH (10:45)
[2022-01-29] MEDS: Escitalopram Oxalate 20 mg Tablet PO SCH (10:45)
[2022-01-29] MEDS: traMADol HCl 50 MG TAB PO PRN (10:45)
[2022-01-29] MEDS: Divalproex Sodium 250 MG (DR) TAB PO SCH ×2 (10:45→21:09)
[2022-01-29] MEDS ORDERED: Hydrocortisone Sod Succ/PF 100 mg/2 ml Vial IVP SCH (15:45)
[2022-01-29] MEDS: Hydrocortisone Sod Succ/PF 100 mg/2 ml Vial IVP SCH (21:11)
[2022-01-29] MEDS: Heparin 5,000 UNITS/ML VIAL SC SCH (21:11)
[2022-01-29] MEDS: ALPRAZolam 0.5 MG TAB PO PRN (21:19)
[2022-01-30] MEDS: Acetaminophen 500 MG TAB PO SCH ×4 (00:28→17:00)
[2022-01-30] MEDS: traMADol HCl 50 MG TAB PO PRN (00:46)
[2022-01-30] MEDS: Hydrocortisone Sod Succ/PF 100 mg/2 ml Vial IVP SCH ×4 (05:00→20:33)
[2022-01-30] MEDS: traMADol HCl 50 MG TAB PO SCH ×3 (05:01→20:33)
[2022-01-30] MEDS: Levothyroxine Sodium 50 MCG TAB PO SCH (05:01)
[2022-01-30] MEDS: ALPRAZolam 0.5 MG TAB PO PRN ×2 (05:03→20:33)
[2022-01-30] MEDS: Mometasone/Formoterol 200/5 60 PUFF INH SCH ×2 (06:41→19:27)
[2022-01-30] MEDS: Escitalopram Oxalate 20 mg Tablet PO SCH (09:41)
[2022-01-30] MEDS: Amlodipine 10 MG TAB PO SCH (09:41)
[2022-01-30] MEDS: Famotidine 20 MG TAB PO SCH (09:41)
[2022-01-30] MEDS: Divalproex Sodium 250 MG (DR) TAB PO SCH ×2 (09:41→20:32)
[2022-01-30] MEDS: hydrALAZINE 25 MG TAB PO SCH (09:42)
[2022-01-30] MEDS: Furosemide 20 MG TAB PO SCH ×2 (09:46→20:32)
[2022-01-30 09:54] LABS: #Eosinphils 0.1 thou/uL (0.0-0.7); #Lymphocytes 0.7 thou/uL (1.20-3.40); #Monocytes 0.4 thou/uL (0.11-0.59); #Neutrophils 4.9 thou/uL (1.40-6.50); %Basophils 0.1 % (0.0-1.0); %Lymphocytes 11.2 % (21.0-51.0); %Monocytes 6.9 % (0.0-10.0); %Neutrophils 80.8 % (42.0-75.0); Hemoglobin 9.5 g/dL (12.0-16.0); Mean Corpuscular HGB CONC 33.3 g/dL (32.0-36.0); Mean Corpuscular Hemoglobin 31.8 pg (27.0-31.0); Mean Corpuscular Volume 95.3 fL (78.0-98.0); Mean Platelet Volume 8.5 fL (7.4-10.4); Platelet Count 87 thou/uL (130-400); RBC Distribution Width 17.8 % (11.5-14.5); Red Blood Cell (RBC) Count 2.98 mill/uL (4.20-5.40)
[2022-01-30 09:56] LABS: Anion Gap 19 mmol/L (10-20); BUN (Urea Nitrogen) 37 mg/dL (9.8-20.1); Calc. Creatinine Clearance 25 mL/min (70-130); Calcium 8.4 mg/dL (7.8-10.44); Carbon Dioxide 17 mmol/L (23-31); Chloride 105 mmol/L (98-107); Estimated GFR 23; Glucose 170 mg/dL (83-110); Magnesium 2.2 mg/dL (1.6-2.6); Phosphorus 4.2 mg/dL (2.3-4.7); Potassium 5.8 mmol/L (3.5-5.1); Sodium 135 mmol/L (136-145)
[2022-01-30] MEDS ORDERED: diphenhydrAMINE 25 MG CAP PO PRN (10:22)
[2022-01-30] MEDS: Heparin 5,000 UNITS/ML VIAL SC SCH ×2 (10:32→20:25)
[2022-01-30] MEDS ORDERED: diphenhydrAMINE 12.5 MG/5 ML UDCUP PO PRN (10:37)
[2022-01-30] MEDS ORDERED: hydrALAZINE 25 MG TAB PO SCH ×2 (16:15→21:00)
[2022-01-31] MEDS: Acetaminophen 500 MG TAB PO SCH ×4 (01:23→16:56)
[2022-01-31 04:44] LABS: Phosphorus 3.6 mg/dL (2.3-4.7)
[2022-01-31 04:48] LABS: Anion Gap 22 mmol/L (10-20); BUN (Urea Nitrogen) 36 mg/dL (9.8-20.1); Calc. Creatinine Clearance 32 mL/min (70-130); Calcium 8.4 mg/dL (7.8-10.44); Carbon Dioxide 17 mmol/L (23-31); Chloride 100 mmol/L (98-107); Estimated GFR 30; Glucose 116 mg/dL (83-110); Magnesium 2.2 mg/dL (1.6-2.6); Potassium 4.8 mmol/L (3.5-5.1); Sodium 134 mmol/L (136-145)
[2022-01-31 04:58] LABS: Hemoglobin 9.2 g/dL (12.0-16.0); Mean Corpuscular HGB CONC 29.5 g/dL (32.0-36.0); Mean Corpuscular Hemoglobin 29.9 pg (27.0-31.0); Platelet Count 138 thou/uL (130-400); Red Blood Cell (RBC) Count 3.07 mill/uL (4.20-5.40); White Blood Cell (WBC) Count 4.6 thou/uL (4.8-10.8)
[2022-01-31 04:59] LABS: Band 14 % (5-11); Hypochromia SLIGHT = 6-15 cells (100X) (0-5/hpf); Lymphocytes 20 % (21-51); MDiff Complete? YES; Neutrophil 66 % (42-75); Platelet Morphology Comment Appears Adequate
[2022-01-31] MEDS: Levothyroxine Sodium 50 MCG TAB PO SCH (05:08)
[2022-01-31] MEDS: Hydrocortisone Sod Succ/PF 100 mg/2 ml Vial IVP SCH (05:08)
[2022-01-31] MEDS: traMADol HCl 50 MG TAB PO SCH ×2 (05:09→14:32)
[2022-01-31] MEDS ORDERED: hydrOXYzine 25 MG TAB PO PRN (07:08)
[2022-01-31] MEDS ORDERED: Nystatin Ointment 15 GM TUBE TOP PRN ×2 (07:08→07:13)
[2022-01-31] MEDS: Mometasone/Formoterol 200/5 60 PUFF INH SCH ×2 (07:17→19:10)
[2022-01-31] MEDS ORDERED: Clopidogrel Bisulfate 75 MG TAB PO SCH (09:00)
[2022-01-31] MEDS: Famotidine 20 MG TAB PO SCH (09:57)
[2022-01-31] MEDS: Furosemide 20 MG TAB PO SCH (09:57)
[2022-01-31] MEDS: Escitalopram Oxalate 20 mg Tablet PO SCH (09:58)
[2022-01-31] MEDS: Divalproex Sodium 250 MG (DR) TAB PO SCH (10:08)
[2022-01-31 20:34] VITALS: BP 101/64; TEMP 97.9
[2022-01-31] MEDS ORDERED: Simvastatin 40 MG TAB PO SCH (21:00)
[2022-01-31] MEDS ORDERED: Atorvastatin Calcium 20 MG TAB PO SCH (21:00)
== END 2022-01-31 19:41 | DRG 481 ==
LOC: SDC 15:24 → 2NO 18:13 → SJJU 01-31 08:40
PROVIDERS: ADMIT Orthopaedic Surgery; ATTEND Orthopaedic Surgery
PROC: 0QS606Z Reposition Right Upper Femur with Intramedullary Internal Fixation Device, Open Approach (ICD-10-PCS; principal; 2022-01-28)
DX: S72.141A Displaced intertrochanteric fracture of right femur, initial encounter for closed fracture (principal); E27.40 Unspecified adrenocortical insufficiency; Z20.822 Contact with and (suspected) exposure to COVID-19; I35.0 Nonrheumatic aortic (valve) stenosis; E78.5 Hyperlipidemia, unspecified; E03.9 Hypothyroidism, unspecified; D63.1 Anemia in chronic kidney disease; I12.9 Hypertensive chronic kidney disease with stage 1 through stage 4 chronic kidney disease, or unspecified chronic kidney disease; I25.10 Atherosclerotic heart disease of native coronary artery without angina pectoris; I73.9 Peripheral vascular disease, unspecified; W01.0XXA Fall on same level from slipping, tripping and stumbling without subsequent striking against object, initial encounter; I48.91 Unspecified atrial fibrillation; G43.909 Migraine, unspecified, not intractable, without status migrainosus; G47.00 Insomnia, unspecified; F31.9 Bipolar disorder, unspecified; J44.9 Chronic obstructive pulmonary disease, unspecified; F41.9 Anxiety disorder, unspecified; N18.30 Chronic kidney disease, stage 3 unspecified; E87.5 Hyperkalemia; R33.9 Retention of urine, unspecified; I95.89 Other hypotension; Y92.098 Other place in other non-institutional residence as the place of occurrence of the external cause; Z95.1 Presence of aortocoronary bypass graft; Z90.49 Acquired absence of other specified parts of digestive tract; Z90.89 Acquired absence of other organs; Z98.890 Other specified postprocedural states; Z86.16 Personal history of COVID-19; Z79.899 Other long term (current) drug therapy; Z88.1 Allergy status to other antibiotic agents; Z88.5 Allergy status to narcotic agent; Z88.2 Allergy status to sulfonamides; Z86.73 Personal history of transient ischemic attack (TIA), and cerebral infarction without residual deficits; Z95.828 Presence of other vascular implants and grafts; Z91.51 Personal history of suicidal behavior; Z87.891 Personal history of nicotine dependence
CPT/HCPCS: 36415; 36416; 76000; 80048; 82533; 83735; 83880; 84100; 85025; 86850; 86900; 86901; C1713; J0171; J0690; J1642; J1644; J1720; J2270; J2370; J2405; J2704; J3475; J3490; J7030; P9045; S0020

== ENCOUNTER 2022-04-29 06:30 | Inpatient (IN) | payer MEDICARE, MEDICAID ==
[2022-04-29] MEDS ORDERED: Ondansetron PF 4 MG/2 ML Vial ONE (08:29)
[2022-04-29] MEDS ORDERED: Fentanyl 100 MCG/2 ML VIAL ONE (08:29)
[2022-04-29 08:39] LABS: ALT (SGPT) Less than 7 U/L (8-55); AST (SGOT) 18 U/L (5-34); Albumin 3.6 g/dL (3.4-4.8); Alkaline Phosphatase 72 U/L (40-110); Anion Gap 15 mmol/L (10-20); BUN (Urea Nitrogen) 25 mg/dL (9.8-20.1); Bilirubin, Total 0.3 mg/dL (0.2-1.2); Calc. Creatinine Clearance 0 mL/min (70-130); Calcium 9.3 mg/dL (7.8-10.44); Carbon Dioxide 21 mmol/L (23-31); Chloride 107 mmol/L (98-107); Estimated GFR 28; Globulin 3.9 g/dL (2.4-3.5); Glucose 83 mg/dL (83-110); Potassium 4.6 mmol/L (3.5-5.1); Protein, Total 7.5 g/dL (5.8-8.1); Sodium 138 mmol/L (136-145)
[2022-04-29 08:46] LABS: #Eosinphils 0.2 thou/uL (0.0-0.7); #Lymphocytes 1.5 thou/uL (1.20-3.40); #Monocytes 0.4 thou/uL (0.11-0.59); #Neutrophils 3.8 thou/uL (1.40-6.50); %Basophils 0.2 % (0.0-1.0); %Eosinophils 2.6 % (0.0-10.0); %Lymphocytes 25.3 % (21.0-51.0); %Monocytes 7.6 % (0.0-10.0); %Neutrophils 64.4 % (42.0-75.0); Hemoglobin 11.9 g/dL (12.0-16.0); Mean Corpuscular Hemoglobin 30.9 pg (27.0-31.0); Mean Corpuscular Volume 99.5 fL (78.0-98.0); Mean Platelet Volume 6.5 fL (7.4-10.4); Platelet Count 279 thou/uL (130-400); RBC Distribution Width 15.9 % (11.5-14.5); Red Blood Cell (RBC) Count 3.84 mill/uL (4.20-5.40); White Blood Cell (WBC) Count 5.9 thou/uL (4.8-10.8)
[2022-04-29] MEDS ORDERED: Dextrose 5% in Water 1,000 ML IV PRN (11:03)
[2022-04-29] MEDS ORDERED: hydrALAZINE 20 MG/ML VIAL SLOW IVP PRN (11:03)
[2022-04-29] MEDS ORDERED: HumaLOG 300 UNITS/3 ML VIAL SC PRN (11:03)
[2022-04-29] MEDS ORDERED: Dextrose 50% Abboject 50 ML SYRINGE SLOW IVP PRN (11:03)
[2022-04-29] MEDS ORDERED: Ondansetron PF 4 MG/2 ML Vial IVP PRN (11:03)
[2022-04-29] MEDS ORDERED: TETANUS, DIPHTHERIA TOX,ADULT (TDVAX) 0.5 ML VIAL IM ONE (11:03)
[2022-04-29] MEDS ORDERED: Sodium Chloride 0.9% 1,000 ML IV SCH (11:15)
[2022-04-29] MEDS ORDERED: Boostrix 0.5 ML (Tdap) VIAL (>/=7 yrs of age) ONE (13:49)
[2022-04-29] MEDS ORDERED: Acetaminophen 500 MG TAB ONE (13:49)
[2022-04-29] MEDS: Acetaminophen 500 MG TAB PO SCH ×2 (13:59→21:58)
[2022-04-29] MEDS: Ipratropium Bromide 2.5 ml Neb NEB SCH ×3 (14:30→19:22)
[2022-04-29 14:45] LABS: Troponin I 0.036 ng/mL (< 0.028)
[2022-04-29] MEDS ORDERED: Mometasone/Formoterol 200/5 60 PUFF INH SCH (18:30)
[2022-04-29 18:48] VITALS: BMI 21.0
[2022-04-29] MEDS: Mometasone 200 MCG/Formoterol 5 MCG 120 PUFF INHALER INH SCH (19:22)
[2022-04-29] MEDS ORDERED: Famotidine/PF 20 mg/2ml Vial SLOW IVP SCH (21:00)
[2022-04-29] MEDS ORDERED: Senokot S 8.6-50 MG TAB PO SCH (21:00)
[2022-04-29] MEDS ORDERED: Atorvastatin Calcium 20 MG TAB PO SCH (21:00)
[2022-04-29] MEDS ORDERED: Amlodipine 10 MG TAB PO SCH (21:00)
[2022-04-29] MEDS ORDERED: Milk Of Magnesia 30 ML UDCUP PO PRN (21:15)
[2022-04-29] MEDS ORDERED: traMADol HCl 50 MG TAB PO PRN (21:15)
[2022-04-29] MEDS ORDERED: ALPRAZolam 0.5 MG TAB PO PRN (21:15)
[2022-04-29] MEDS: Divalproex Sodium 250 MG (DR) TAB PO SCH (21:58)
[2022-04-29] MEDS: Senokot S 8.6-50 MG TAB PO SCH (21:58)
[2022-04-29] MEDS: traMADol HCl 50 MG TAB PO SCH (21:59)
[2022-04-29 22:33] LABS: Troponin I 0.027 ng/mL (< 0.028)
[2022-04-30] MEDS: Ipratropium Bromide 2.5 ml Neb NEB SCH ×4 (02:17→14:00)
[2022-04-30] MEDS: Acetaminophen 500 MG TAB PO SCH ×2 (03:36→09:11)
[2022-04-30] MEDS ORDERED: Levothyroxine Sodium 75 MCG TAB PO SCH (06:00)
[2022-04-30] MEDS ORDERED: Polyethylene Glycol 3350 17 GM Packet PO SCH ×2 (09:00)
[2022-04-30] MEDS ORDERED: Famotidine/PF 20 mg/2ml Vial SLOW IVP SCH (09:00)
[2022-04-30] MEDS ORDERED: Escitalopram Oxalate 20 mg Tablet PO SCH (09:00)
[2022-04-30] MEDS ORDERED: Amlodipine 10 MG TAB PO SCH (09:00)
[2022-04-30] MEDS: traMADol HCl 50 MG TAB PO SCH (09:06)
[2022-04-30] MEDS: Divalproex Sodium 250 MG (DR) TAB PO SCH (09:12)
[2022-04-30] MEDS: Senokot S 8.6-50 MG TAB PO SCH (09:13)
[2022-04-30] MEDS: Hydrocortisone 1% Cream 30 GM TUBE TOP SCH ×2 (09:13→13:51)
[2022-04-30] MEDS ORDERED: Famotidine 20 MG TAB PO SCH (09:45)
[2022-04-30] MEDS: Mometasone 200 MCG/Formoterol 5 MCG 120 PUFF INHALER INH SCH (11:01)
[2022-04-30 11:48] VITALS: BP 115/56; TEMP 97.9
[2022-05-01] MEDS ORDERED: Famotidine 20 MG TAB PO SCH (09:00)
[2022-05-02] MEDS ORDERED: FLU VACC QS2022-23(65YR UP)/PF 240 MCG/0.7 ML SYRINGE IM ONE (19:45)
== END 2022-04-30 14:45 | DRG 83 ==
LOC: ERS 06:30 → ERHOLD 11:45 → NEURO 17:17
PROVIDERS: ADMIT Emergency Medicine; ATTEND Surgery
PROC: 6A550Z2 Pheresis of Platelets, Single (ICD-10-PCS; principal; 2022-04-29)
DX: S06.6XAA Traumatic subarachnoid hemorrhage with loss of consciousness status unknown, initial encounter (principal); J90 Pleural effusion, not elsewhere classified; Z66 Do not resuscitate; Z20.822 Contact with and (suspected) exposure to COVID-19; Z23 Encounter for immunization; E78.5 Hyperlipidemia, unspecified; J44.9 Chronic obstructive pulmonary disease, unspecified; I73.9 Peripheral vascular disease, unspecified; E03.9 Hypothyroidism, unspecified; I25.10 Atherosclerotic heart disease of native coronary artery without angina pectoris; I35.0 Nonrheumatic aortic (valve) stenosis; N18.9 Chronic kidney disease, unspecified; I48.91 Unspecified atrial fibrillation; G43.909 Migraine, unspecified, not intractable, without status migrainosus; G47.00 Insomnia, unspecified; I12.9 Hypertensive chronic kidney disease with stage 1 through stage 4 chronic kidney disease, or unspecified chronic kidney disease; M25.562 Pain in left knee; W06.XXXA Fall from bed, initial encounter; R40.2362 Coma scale, best motor response, obeys commands, at arrival to emergency department; R40.2142 Coma scale, eyes open, spontaneous, at arrival to emergency department; R40.2252 Coma scale, best verbal response, oriented, at arrival to emergency department; F31.9 Bipolar disorder, unspecified; Z86.73 Personal history of transient ischemic attack (TIA), and cerebral infarction without residual deficits; Z87.891 Personal history of nicotine dependence; Y92.122 Bedroom in nursing home as the place of occurrence of the external cause; Z90.710 Acquired absence of both cervix and uterus; Z90.49 Acquired absence of other specified parts of digestive tract; Z95.1 Presence of aortocoronary bypass graft; Z95.828 Presence of other vascular implants and grafts
CPT/HCPCS: 36415; 36416; 36430; 70450; 71045; 72125; 80053; 83880; 84484; 85025; 86850; 86900; 86901; 90714; 90715; 93005; 93010; 96374; 96375; G0390; J2405; J3010; J7050; P9035; S0028; U0003; U0005

== ENCOUNTER 2022-05-15 13:43 | Outpatient (CLI) | payer MEDICARE, OTHER | END 2022-05-15 13:44 | disposition home or self-care (01) | LOC: CT 13:43 | PROVIDERS: ATTEND Physician Assistant Surgical | DX: S06.320A Contusion and laceration of left cerebrum without loss of consciousness, initial encounter (principal) | CPT/HCPCS: 70450 ==

== ENCOUNTER 2023-02-05 00:36 | Inpatient (IN) | payer MEDICARE, MEDICAID ==
[2023-02-05 01:50] VITALS: BMI 20.4
[2023-02-05] MEDS ORDERED: Furosemide 20 MG/2 ML VIAL SLOW IVP SCH (03:00)
[2023-02-05] MEDS ORDERED: Guaifenesin DM 100-10/5 ML UDCUP PO PRN (03:38)
[2023-02-05] MEDS ORDERED: hydrOXYzine 10 MG TAB PO PRN (03:38)
[2023-02-05] MEDS ORDERED: Bisacodyl 10 MG SUPP PR PRN (03:38)
[2023-02-05] MEDS ORDERED: Senokot S 8.6-50 MG TAB PO PRN (03:38)
[2023-02-05] MEDS ORDERED: Milk Of Magnesia 30 ML UDCUP PO PRN (03:38)
[2023-02-05 04:42] LABS: #Basophils 0.1 thou/uL (0.0-0.2); #Eosinphils 0.1 thou/uL (0.0-0.7); #Monocytes 0.8 thou/uL (0.11-0.59); #Neutrophils 4.6 thou/uL (1.40-6.50); %Basophils 1.1 % (0.0-1.0); %Eosinophils 1.6 % (0.0-10.0); %Lymphocytes 29.3 % (21.0-51.0); %Monocytes 10.1 % (0.0-10.0); %Neutrophils 56.1 % (42.0-75.0); Hemoglobin 10.9 g/dL (12.0-16.0); Mean Corpuscular Hemoglobin 27.9 pg (27.0-31.0); Mean Corpuscular Volume 103.6 fl (78.0-98.0); Mean Platelet Volume 9.1 fL (7.4-10.4); Platelet Count 356 10x3/uL (130-400); White Blood Cell (WBC) Count 8.2 10x3/uL (4.8-10.8)
[2023-02-05 04:58] LABS: ALT (SGPT) 24 U/L (8-55); AST (SGOT) 25 U/L (5-34); Albumin 3.4 g/dL (3.4-4.8); Alkaline Phosphatase 75 U/L (40-110); Anion Gap 19 mmol/L (10-20); BUN (Urea Nitrogen) 39 mg/dL (9.8-20.1); Bilirubin, Total 0.4 mg/dL (0.2-1.2); Calc. Creatinine Clearance 23 mL/min (70-130); Calcium 9.4 mg/dL (7.8-10.44); Carbon Dioxide 16 mmol/L (23-31); Chloride 107 mmol/L (98-107); Estimated GFR 23; Globulin 3.9 g/dL (2.4-3.5); Glucose 76 mg/dL (83-110); Potassium 5.1 mmol/L (3.5-5.1); Protein, Total 7.3 g/dL (5.8-8.1); Sodium 137 mmol/L (136-145)
[2023-02-05 05:03] LABS: Troponin I 0.085 ng/mL (< 0.028)
[2023-02-05] MEDS: Levothyroxine Sodium 75 MCG TAB PO SCH (06:19)
[2023-02-05] MEDS: Mometasone 200 MCG/Formoterol 5 MCG 120 PUFF INHALER INH SCH ×2 (07:47→17:49)
[2023-02-05] MEDS ORDERED: Apixaban 2.5 MG TAB PO SCH (09:00)
[2023-02-05] MEDS ORDERED: Vancomycin 1 GM in Premix Bag 1 BAG IVPB SCH (09:30)
[2023-02-05] MEDS: Aspirin 325 MG TAB PO SCH ×2 (09:43→20:52)
[2023-02-05] MEDS: Acetaminophen 325 MG TAB PO PRN ×2 (09:44→20:50)
[2023-02-05] MEDS: Escitalopram Oxalate 20 mg Tablet PO SCH (09:46)
[2023-02-05] MEDS: hydrALAZINE 25 MG TAB PO SCH ×2 (09:48→20:52)
[2023-02-05] MEDS: traMADol HCl 50 MG TAB PO SCH ×2 (09:50→20:45)
[2023-02-05] MEDS: Clopidogrel Bisulfate 75 MG TAB PO SCH (09:51)
[2023-02-05] MEDS: Multivit, Therapeutic 1 TAB PO SCH (09:54)
[2023-02-05] MEDS: Divalproex Sodium 125 mg Sprinkle Capsule PO SCH (09:54)
[2023-02-05] MEDS: Docusate 100 MG CAP PO SCH (09:56)
[2023-02-05] MEDS ORDERED: cefTRIAXone\\ROCEPHIN 1 GM in Sodium Chloride 0.9% 100 ML IVPB SCH (11:00)
[2023-02-05 11:47] LABS: Iron 26 ug/dL (50-170); Iron Binding Capacity, Total 420 mcg/dL (265-497)
[2023-02-05] MEDS ORDERED: Folic Acid 1 MG TAB PO SCH (12:15)
[2023-02-05] MEDS ORDERED: Cyanocobalamin (Vitamin B-12) 1,000 MCG TAB PO SCH (12:15)
[2023-02-05] MEDS ORDERED: [UNRECOGNIZED DRUG - OTHER] IVPB SCH (12:30)
[2023-02-05] MEDS: Ondansetron ODT 4 MG TAB PO PRN (13:28)
[2023-02-05] MEDS: Polyethylene Glycol OPTH DROP 15 ML BOT EA EYE SCH ×2 (13:30→20:55)
[2023-02-05] MEDS: Atorvastatin Calcium 20 MG TAB PO SCH (20:52)
[2023-02-05] MEDS: Mirtazapine 15 MG TAB PO SCH (20:53)
[2023-02-06] MEDS ORDERED: ALPRAZolam 0.25 MG TAB PO PRN (00:18)
[2023-02-06] MEDS: Acetaminophen 325 MG TAB PO PRN ×2 (00:45→05:29)
[2023-02-06] MEDS: Levothyroxine Sodium 75 MCG TAB PO SCH (05:29)
[2023-02-06 05:43] LABS: #Basophils 0.1 thou/uL (0.0-0.2); #Eosinphils 0.1 thou/uL (0.0-0.7); #Monocytes 0.6 thou/uL (0.11-0.59); #Neutrophils 6.7 thou/uL (1.40-6.50); %Basophils 0.9 % (0.0-1.0); %Eosinophils 0.6 % (0.0-10.0); %Lymphocytes 17.2 % (21.0-51.0); %Neutrophils 73.3 % (42.0-75.0); Hemoglobin 9.8 g/dL (12.0-16.0); Mean Corpuscular HGB CONC 27.8 g/dL (32.0-36.0); Mean Corpuscular Hemoglobin 27.1 pg (27.0-31.0); Mean Corpuscular Volume 97.5 fl (78.0-98.0); Mean Platelet Volume 9.2 fL (7.4-10.4); Platelet Count 306 10x3/uL (130-400); RBC Distribution Width 16.1 % (11.5-14.5); Red Blood Cell (RBC) Count 3.62 mill/uL (4.20-5.40); White Blood Cell (WBC) Count 9.1 10x3/uL (4.8-10.8)
[2023-02-06 06:10] LABS: ALT (SGPT) 15 U/L (8-55); AST (SGOT) 20 U/L (5-34); Alkaline Phosphatase 71 U/L (40-110); Anion Gap 17 mmol/L (10-20); BUN (Urea Nitrogen) 45 mg/dL (9.8-20.1); Bilirubin, Total 0.2 mg/dL (0.2-1.2); Calc. Creatinine Clearance 19 mL/min (70-130); Calcium 9.1 mg/dL (7.8-10.44); Carbon Dioxide 19 mmol/L (23-31); Chloride 107 mmol/L (98-107); Estimated GFR 19; Globulin 3.2 g/dL (2.4-3.5); Glucose 79 mg/dL (83-110); Potassium 5.1 mmol/L (3.5-5.1); Protein, Total 6.2 g/dL (5.8-8.1); Sodium 138 mmol/L (136-145)
[2023-02-06 06:12] LABS: Digoxin 3.22 ng/mL (0.8-2.0)
[2023-02-06] MEDS ORDERED: Cyanocobalamin (Vitamin B-12) 1,000 MCG TAB PO SCH (09:00)
[2023-02-06] MEDS: Multivit, Therapeutic 1 TAB PO SCH (09:11)
[2023-02-06] MEDS: Escitalopram Oxalate 20 mg Tablet PO SCH (09:11)
[2023-02-06] MEDS: Aspirin 325 MG TAB PO SCH ×2 (09:11→21:16)
[2023-02-06] MEDS: hydrALAZINE 25 MG TAB PO SCH ×2 (09:11→21:17)
[2023-02-06] MEDS: traMADol HCl 50 MG TAB PO SCH ×2 (09:12→21:17)
[2023-02-06] MEDS: Folic Acid 1 MG TAB PO SCH (09:15)
[2023-02-06] MEDS: Mometasone 200 MCG/Formoterol 5 MCG 120 PUFF INHALER INH SCH ×2 (09:15→19:35)
[2023-02-06] MEDS: Clopidogrel Bisulfate 75 MG TAB PO SCH (09:15)
[2023-02-06] MEDS: Docusate 100 MG CAP PO SCH (09:16)
[2023-02-06] MEDS: Divalproex Sodium 125 mg Sprinkle Capsule PO SCH (09:16)
[2023-02-06] MEDS: Polyethylene Glycol OPTH DROP 15 ML BOT EA EYE SCH ×2 (09:18→21:20)
[2023-02-06 09:32] LABS: Vancomycin, Trough 7.9 ug/mL
[2023-02-06] MEDS ORDERED: Vancomycin HCl 750 MG in Sodium Chloride 0.9% 250 ML 250 ML IVPB SCH (10:00)
[2023-02-06] MEDS: Ondansetron ODT 4 MG TAB PO PRN (10:42)
[2023-02-06] MEDS: Lidocaine 4% Patch TD PRN (10:47)
[2023-02-06] MEDS: ALPRAZolam 0.25 MG TAB PO SCH (21:16)
[2023-02-06] MEDS: Atorvastatin Calcium 20 MG TAB PO SCH (21:16)
[2023-02-06] MEDS: Mirtazapine 15 MG TAB PO SCH (21:17)
[2023-02-06] MEDS: Calcium Carbonate 500 MG ChewTAB PO PRN (21:20)
[2023-02-06] MEDS: Transdermal Patch Removal TOP SCH (21:24)
[2023-02-07 05:23] LABS: Hemoglobin 9.2 g/dL (12.0-16.0); Mean Corpuscular HGB CONC 29.4 g/dL (32.0-36.0); Mean Corpuscular Hemoglobin 27.6 pg (27.0-31.0); Mean Platelet Volume 9.5 fL (7.4-10.4); Platelet Count 329 10x3/uL (130-400); Red Blood Cell (RBC) Count 3.33 mill/uL (4.20-5.40); White Blood Cell (WBC) Count 6.2 10x3/uL (4.8-10.8)
[2023-02-07 05:35] LABS: ALT (SGPT) 15 U/L (8-55); AST (SGOT) 16 U/L (5-34); Albumin 3.1 g/dL (3.4-4.8); Alkaline Phosphatase 70 U/L (40-110); Anion Gap 15 mmol/L (10-20); BUN (Urea Nitrogen) 44 mg/dL (9.8-20.1); Bilirubin, Total 0.3 mg/dL (0.2-1.2); Calc. Creatinine Clearance 21 mL/min (70-130); Calcium 8.6 mg/dL (7.8-10.44); Carbon Dioxide 24 mmol/L (23-31); Chloride 105 mmol/L (98-107); Estimated GFR 21; Globulin 3.2 g/dL (2.4-3.5); Glucose 86 mg/dL (83-110); Potassium 4.7 mmol/L (3.5-5.1); Protein, Total 6.3 g/dL (5.8-8.1); Sodium 139 mmol/L (136-145)
[2023-02-07] MEDS: Levothyroxine Sodium 75 MCG TAB PO SCH (06:02)
[2023-02-07] MEDS: Mometasone 200 MCG/Formoterol 5 MCG 120 PUFF INHALER INH SCH ×2 (08:26→17:48)
[2023-02-07] MEDS: Lidocaine 4% Patch TD PRN (09:37)
[2023-02-07] MEDS: Docusate 100 MG CAP PO SCH (09:39)
[2023-02-07] MEDS: traMADol HCl 50 MG TAB PO SCH ×2 (09:39→20:32)
[2023-02-07] MEDS: Divalproex Sodium 125 mg Sprinkle Capsule PO SCH (09:39)
[2023-02-07] MEDS: hydrALAZINE 25 MG TAB PO SCH ×2 (09:39→20:33)
[2023-02-07] MEDS: Multivit, Therapeutic 1 TAB PO SCH (09:39)
[2023-02-07] MEDS: Clopidogrel Bisulfate 75 MG TAB PO SCH (09:39)
[2023-02-07] MEDS: Aspirin 325 MG TAB PO SCH ×2 (09:41→20:32)
[2023-02-07] MEDS: Folic Acid 1 MG TAB PO SCH (09:41)
[2023-02-07] MEDS: Escitalopram Oxalate 20 mg Tablet PO SCH (09:41)
[2023-02-07] MEDS: Calcium Carbonate 500 MG ChewTAB PO PRN (09:45)
[2023-02-07] MEDS: Polyethylene Glycol OPTH DROP 15 ML BOT EA EYE SCH ×2 (09:47→20:34)
[2023-02-07] MEDS: Dronedarone HCl 400 MG TAB PO SCH (15:52)
[2023-02-07] MEDS: Acetaminophen 325 MG TAB PO PRN (15:56)
[2023-02-07] MEDS: ALPRAZolam 0.25 MG TAB PO SCH (20:31)
[2023-02-07] MEDS: Atorvastatin Calcium 20 MG TAB PO SCH (20:32)
[2023-02-07] MEDS: Mirtazapine 15 MG TAB PO SCH (20:32)
[2023-02-07] MEDS: Transdermal Patch Removal TOP SCH (20:35)
[2023-02-08 05:17] LABS: #Basophils 0.1 thou/uL (0.0-0.2); #Eosinphils 0.1 thou/uL (0.0-0.7); #Monocytes 0.9 thou/uL (0.11-0.59); #Neutrophils 3.7 thou/uL (1.40-6.50); %Basophils 0.8 % (0.0-1.0); %Eosinophils 1.5 % (0.0-10.0); %Lymphocytes 19.4 % (21.0-51.0); %Monocytes 14.2 % (0.0-10.0); %Neutrophils 61.6 % (42.0-75.0); Hemoglobin 9.2 g/dL (12.0-16.0); Mean Corpuscular HGB CONC 28.9 g/dL (32.0-36.0); Mean Corpuscular Hemoglobin 27.7 pg (27.0-31.0); Mean Corpuscular Volume 95.8 fl (78.0-98.0); Mean Platelet Volume 9.2 fL (7.4-10.4); Platelet Count 304 10x3/uL (130-400); RBC Distribution Width 15.9 % (11.5-14.5); Red Blood Cell (RBC) Count 3.32 mill/uL (4.20-5.40)
[2023-02-08 05:41] LABS: ALT (SGPT) 12 U/L (8-55); AST (SGOT) 15 U/L (5-34); Albumin 3.1 g/dL (3.4-4.8); Alkaline Phosphatase 68 U/L (40-110); Anion Gap 13 mmol/L (10-20); BUN (Urea Nitrogen) 37 mg/dL (9.8-20.1); Bilirubin, Total 0.3 mg/dL (0.2-1.2); Calc. Creatinine Clearance 27 mL/min (70-130); Calcium 8.8 mg/dL (7.8-10.44); Carbon Dioxide 23 mmol/L (23-31); Chloride 104 mmol/L (98-107); Digoxin 1.68 ng/mL (0.8-2.0); Estimated GFR 28; Globulin 3.2 g/dL (2.4-3.5); Glucose 88 mg/dL (83-110); Potassium 4.4 mmol/L (3.5-5.1); Protein, Total 6.3 g/dL (5.8-8.1); Sodium 136 mmol/L (136-145)
[2023-02-08] MEDS: Levothyroxine Sodium 75 MCG TAB PO SCH (06:11)
[2023-02-08] MEDS: Mometasone 200 MCG/Formoterol 5 MCG 120 PUFF INHALER INH SCH ×2 (07:41→18:56)
[2023-02-08] MEDS: Dronedarone HCl 400 MG TAB PO SCH ×2 (11:18→16:23)
[2023-02-08] MEDS: traMADol HCl 50 MG TAB PO SCH ×2 (11:19→20:36)
[2023-02-08] MEDS: Docusate 100 MG CAP PO SCH (11:20)
[2023-02-08] MEDS: Aspirin 325 MG TAB PO SCH ×2 (11:20→20:35)
[2023-02-08] MEDS: Multivit, Therapeutic 1 TAB PO SCH (11:20)
[2023-02-08] MEDS: hydrALAZINE 25 MG TAB PO SCH ×2 (11:20→20:36)
[2023-02-08] MEDS: Clopidogrel Bisulfate 75 MG TAB PO SCH (11:20)
[2023-02-08] MEDS: Folic Acid 1 MG TAB PO SCH (11:21)
[2023-02-08] MEDS: Escitalopram Oxalate 20 mg Tablet PO SCH (11:21)
[2023-02-08] MEDS: Polyethylene Glycol OPTH DROP 15 ML BOT EA EYE SCH ×2 (11:22→20:37)
[2023-02-08] MEDS: Lidocaine 4% Patch TD PRN (11:23)
[2023-02-08] MEDS: Divalproex Sodium 125 mg Sprinkle Capsule PO SCH (11:23)
[2023-02-08] MEDS: Atorvastatin Calcium 20 MG TAB PO SCH (20:36)
[2023-02-08] MEDS: ALPRAZolam 0.25 MG TAB PO SCH (20:36)
[2023-02-08] MEDS: Mirtazapine 15 MG TAB PO SCH (20:37)
[2023-02-08] MEDS: Calcium Carbonate 500 MG ChewTAB PO PRN (20:42)
[2023-02-09] MEDS: Transdermal Patch Removal TOP SCH (02:45)
[2023-02-09 04:54] LABS: #Basophils 0.1 thou/uL (0.0-0.2); #Eosinphils 0.1 thou/uL (0.0-0.7); #Monocytes 1.3 thou/uL (0.11-0.59); #Neutrophils 3.8 thou/uL (1.40-6.50); %Basophils 0.9 % (0.0-1.0); %Eosinophils 1.3 % (0.0-10.0); %Lymphocytes 22.5 % (21.0-51.0); Hemoglobin 9.3 g/dL (12.0-16.0); Mean Corpuscular HGB CONC 28.4 g/dL (32.0-36.0); Mean Corpuscular Volume 95.3 fl (78.0-98.0); Platelet Count 309 10x3/uL (130-400); RBC Distribution Width 16.2 % (11.5-14.5); Red Blood Cell (RBC) Count 3.44 mill/uL (4.20-5.40); White Blood Cell (WBC) Count 6.9 10x3/uL (4.8-10.8)
[2023-02-09 05:20] LABS: ALT (SGPT) 11 U/L (8-55); AST (SGOT) 23 U/L (5-34); Albumin 3.1 g/dL (3.4-4.8); Alkaline Phosphatase 66 U/L (40-110); Anion Gap 14 mmol/L (10-20); BUN (Urea Nitrogen) 35 mg/dL (9.8-20.1); Bilirubin, Total 0.3 mg/dL (0.2-1.2); Calc. Creatinine Clearance 26 mL/min (70-130); Carbon Dioxide 22 mmol/L (23-31); Chloride 106 mmol/L (98-107); Estimated GFR 27; Globulin 3.3 g/dL (2.4-3.5); Glucose 85 mg/dL (83-110); Protein, Total 6.4 g/dL (5.8-8.1); Sodium 137 mmol/L (136-145)
[2023-02-09] MEDS: Levothyroxine Sodium 75 MCG TAB PO SCH (05:39)
[2023-02-09] MEDS: Mometasone 200 MCG/Formoterol 5 MCG 120 PUFF INHALER INH SCH (07:29)
[2023-02-09] MEDS: traMADol HCl 50 MG TAB PO SCH (10:01)
[2023-02-09] MEDS: Multivit, Therapeutic 1 TAB PO SCH (10:02)
[2023-02-09] MEDS: Folic Acid 1 MG TAB PO SCH (10:02)
[2023-02-09] MEDS: Dronedarone HCl 400 MG TAB PO SCH (10:02)
[2023-02-09] MEDS: hydrALAZINE 25 MG TAB PO SCH (10:02)
[2023-02-09] MEDS: Aspirin 325 MG TAB PO SCH (10:02)
[2023-02-09] MEDS: Divalproex Sodium 125 mg Sprinkle Capsule PO SCH (10:03)
[2023-02-09] MEDS: Clopidogrel Bisulfate 75 MG TAB PO SCH (10:03)
[2023-02-09] MEDS: Escitalopram Oxalate 20 mg Tablet PO SCH (10:03)
[2023-02-09] MEDS: Polyethylene Glycol OPTH DROP 15 ML BOT EA EYE SCH (10:04)
[2023-02-09] MEDS: Docusate 100 MG CAP PO SCH (10:04)
[2023-02-09] MEDS: Lidocaine 4% Patch TD PRN (10:06)
[2023-02-09] MEDS ORDERED: Lactated Ringer's 500 ML IV SCH (11:15)
[2023-02-09] MEDS: Calcium Carbonate 500 MG ChewTAB PO PRN (11:42)
[2023-02-09 13:42] VITALS: BP 108/69; TEMP 98.4
[2023-02-10] MEDS ORDERED: Aspirin 325 MG TAB PO SCH (09:00)
== END 2023-02-09 16:00 | DRG 309 ==
LOC: 2NO 01:28 → OBSVTOIN 02-06 10:32
PROVIDERS: ADMIT Student in an Organized Health Care Education/Training Program; ATTEND Student in an Organized Health Care Education/Training Program
DX: R00.1 Bradycardia, unspecified (principal); E87.20 Acidosis, unspecified; N18.4 Chronic kidney disease, stage 4 (severe); I50.32 Chronic diastolic (congestive) heart failure; I13.0 Hypertensive heart and chronic kidney disease with heart failure and stage 1 through stage 4 chronic kidney disease, or unspecified chronic kidney disease; N25.81 Secondary hyperparathyroidism of renal origin; N17.9 Acute kidney failure, unspecified; J91.8 Pleural effusion in other conditions classified elsewhere; I73.9 Peripheral vascular disease, unspecified; I48.20 Chronic atrial fibrillation, unspecified; I25.10 Atherosclerotic heart disease of native coronary artery without angina pectoris; I48.91 Unspecified atrial fibrillation; J44.9 Chronic obstructive pulmonary disease, unspecified; I35.0 Nonrheumatic aortic (valve) stenosis; F31.9 Bipolar disorder, unspecified; D63.1 Anemia in chronic kidney disease; R91.8 Other nonspecific abnormal finding of lung field; T46.0X5A Adverse effect of cardiac-stimulant glycosides and drugs of similar action, initial encounter; E88.09 Other disorders of plasma-protein metabolism, not elsewhere classified; E87.5 Hyperkalemia; L97.519 Non-pressure chronic ulcer of other part of right foot with unspecified severity; E11.621 Type 2 diabetes mellitus with foot ulcer; Z95.820 Peripheral vascular angioplasty status with implants and grafts; Z88.5 Allergy status to narcotic agent; Z88.8 Allergy status to other drugs, medicaments and biological substances; Z95.1 Presence of aortocoronary bypass graft; Z79.890 Hormone replacement therapy; Z86.73 Personal history of transient ischemic attack (TIA), and cerebral infarction without residual deficits; Z79.899 Other long term (current) drug therapy; Z79.82 Long term (current) use of aspirin; E78.00 Pure hypercholesterolemia, unspecified; K21.9 Gastro-esophageal reflux disease without esophagitis; R77.8 Other specified abnormalities of plasma proteins; R79.89 Other specified abnormal findings of blood chemistry; R06.00 Dyspnea, unspecified
CPT/HCPCS: 36415; 36416; 71045; 80053; 80162; 80202; 82553; 82607; 82728; 83540; 83550; 83605; 83880; 84145; 84484; 85025; 93005; 96374; 96375; 96376; 97139; G0378; J0696; J1940; J2270; J2405; J3370-JW; J3490; J7120; Q0162

== ENCOUNTER 2023-03-17 17:12 | Inpatient (IN) | payer MEDICARE, MEDICAID ==
[2023-03-17] MEDS ORDERED: NOREPINEPHRINE 8 MG/250 ML-D5W 250 ML ONE (17:39)
[2023-03-17] MEDS ORDERED: dilTIAZem 125 MG/25 ML SDV ONE (17:48)
[2023-03-17] MEDS ORDERED: Midazolam HCl 2 mg/2 ml Vial ONE (17:51)
[2023-03-17] MEDS ORDERED: Midazolam HCl 5 mg/ml Vial ONE (18:04)
[2023-03-17] MEDS ORDERED: dilTIAZem 125 MG, Admixture Fee 1 EACH in Sodium Chloride 0.9% 100 ML IVPB SCH (18:15)
[2023-03-17 19:13] LABS: Hematocrit 21.3 % (36.0-47.0); Hemoglobin 6.4 g/dL (12.0-16.0); Mean Corpuscular Hemoglobin 23.9 pg (27.0-31.0); Mean Corpuscular Volume 79.5 fl (78.0-98.0); Mean Platelet Volume 11.2 fL (7.4-10.4); Platelet Count 147 10x3/uL (130-400); RBC Distribution Width 20.4 % (11.5-14.5); Red Blood Cell (RBC) Count 2.68 mill/uL (4.20-5.40); White Blood Cell (WBC) Count 6.5 10x3/uL (4.8-10.8)
[2023-03-17 19:14] LABS: Delete Auto Diff?? YES; Manual Diff?? YES
[2023-03-17 19:18] LABS: ALT (SGPT) 42 U/L (8-55); AST (SGOT) 135 U/L (5-34); Alkaline Phosphatase 81 U/L (40-110); Anion Gap 17 mmol/L (10-20); BUN (Urea Nitrogen) 71 mg/dL (9.8-20.1); Bilirubin, Total 0.7 mg/dL (0.2-1.2); Calc. Creatinine Clearance 0 mL/min (70-130); Calcium 8.5 mg/dL (7.8-10.44); Carbon Dioxide 17 mmol/L (23-31); Chloride 112 mmol/L (98-107); Estimated GFR 19; Globulin 2.7 g/dL (2.4-3.5); Glucose 89 mg/dL (83-110); Potassium 4.4 mmol/L (3.5-5.1); Protein, Total 4.7 g/dL (5.8-8.1); Sodium 142 mmol/L (136-145)
[2023-03-17 19:31] LABS: PTT 63.5 sec (22.9-36.1); Prothrombin Time 60.1 sec (12.0-14.7)
[2023-03-17 19:35] LABS: Fibrinogen 117 mg/dL (253-463)
[2023-03-17 19:36] LABS: Troponin I 0.493 ng/mL (< 0.028)
[2023-03-17 19:37] LABS: INR-International Normal Ratio 6.5
[2023-03-17 19:39] LABS: Anisocytosis MODERATE=16-30 cells HPF (0-5); Band 5 % (5-11); Burr Cells SLIGHT = 2-5 cells HPF (0-1); CellaVision Operator ID LAB.KB; Hypochromia SLIGHT = 6-15 cells HPF (0-5); Lymphocytes 4 % (21-51); Monocytes 2 % (0-10); Myelocyte 1 % (0-0); Neutrophil 86 % (42-75); Nucleated RBC (Manual Ct) 9 % (0); Platelet Adequacy Comment Platelets Normal; Polychromasia SLIGHT = 2-3 cells HPF (0-2); Smudge Cells 14.9 %; Total Cell Count 101
[2023-03-17] MEDS ORDERED: NOREPINEPHRINE 8 MG/250 ML-D5W 250 ML IVPB SCH (19:45)
[2023-03-17] MEDS ORDERED: Glucagon 1 MG/ML KIT IM PRN (20:00)
[2023-03-17] MEDS ORDERED: Pantoprazole 40 MG VIAL IVP SCH ×2 (20:00→20:18)
[2023-03-17] MEDS ORDERED: Dextrose 50% Abboject 50 ML SYRINGE SLOW IVP PRN (20:00)
[2023-03-17] MEDS ORDERED: Dextrose 5% in Water 1,000 ML IV PRN (20:00)
[2023-03-17] MEDS ORDERED: Sodium Bicarb 50 MEQ/50 ML VIAL IVP SCH (20:15)
[2023-03-17] MEDS ORDERED: Lactated Ringer's 500 ML IV SCH (20:15)
[2023-03-17] MEDS ORDERED: Phytonadione 10 MG in Sodium Chloride 0.9% 50 ML IVPB SCH (20:15)
[2023-03-17] MEDS ORDERED: Lactated Ringer's 250 ML IV SCH ×2 (20:17→20:45)
[2023-03-17] MEDS: Albumin 25% 25 GM/100 ML BOT IVPB SCH (20:28)
[2023-03-17] MEDS: Meropenem 1 GM in Sodium Chloride 0.9% 100 ML IVPB SCH ×2 (20:54→23:05)
[2023-03-17] MEDS ORDERED: Vancomycin 1 GM in Premix Bag 1 BAG IVPB SCH (21:00)
[2023-03-17 21:43] VITALS: BMI 27.8
[2023-03-17 21:49] LABS: Magnesium 1.6 mg/dL (1.6-2.6); Phosphorus 2.7 mg/dL (2.3-4.7)
[2023-03-17 21:56] LABS: Lactic Acid 3.8 mmol/L (0.5-2.2)
[2023-03-17] MEDS: Amiodarone 450 MG in Dextrose 5% in Water 250 ML IVPB SCH (21:57)
[2023-03-17] MEDS ORDERED: Phentolamine Mesylate 5 MG VIAL SC SCH (22:00)
[2023-03-17 22:08] LABS: Free T4 (Free Thyroxine) 0.42 ng/dL (0.70-1.48); Thyroid Stimulating Hormone 10.5873 uIU/mL (0.35-4.94)
[2023-03-17] MEDS: Ipratropium/Albuterol 3 ML NEB NEB SCH (22:08)
[2023-03-17] MEDS ORDERED: VANCOMYCIN 1.25 GM/250 ML BAG 1.25 GM in Premix Bag 1 BAG IVPB SCH (22:15)
[2023-03-17] MEDS ORDERED: Vancomycin Dose by Levels Sliding Scale (Wt <71) FS SCH (22:15)
[2023-03-17] MEDS ORDERED: Meropenem 1 GM in Sodium Chloride 0.9% 100 ML IVPB SCH (23:00)
[2023-03-17 23:04] LABS: Lactic Acid 3.2 mmol/L (0.5-2.2)
[2023-03-18] MEDS ORDERED: Ipratropium/Albuterol 3 ML NEB NEB SCH (01:00)
[2023-03-18] MEDS: methylPREDNISolone Sod Succ/PF 125 MG/2 ML VIAL IVP SCH ×2 (01:20→05:03)
[2023-03-18 02:10] LABS: Bacteria/HPF None Seen HPF (None Seen); Bilirubin Negative (Negative); Blood, Urine Negative (Negative); CAUTI Indications for Culture Alt mental st,lethar; Clarity Clear (Clear); Glucose, Urine (Dipstick) Normal (Negative); Ketone, Urine Negative (Negative); Leukocyte 25 Leu/uL (Negative); Nitrite Negative (Negative); Protein, Urine (Dipstick) 20 mg/dL (Neg-Trace); RBC/HPF 0-3 HPF (0-3); Specific Gravity, Urine 1.018 (1.002-1.036); Squamous Epithelial 0-3 HPF (0-3); Urobilinogen Normal mg/dL (Less than 2); Yeast-Budding 1+ HPF (None Seen); pH, Urine 5.5 (5.0-9.0)
[2023-03-18] MEDS: Ipratropium/Albuterol 3 ML NEB NEB SCH ×2 (02:10→06:53)
[2023-03-18 02:19] LABS: Urine Culture Reflex Yes Yes
[2023-03-18 02:32] LABS: Legionella Urinary Ag Negative (Negative); Strep pneumo Urine Ag NEGATIVE (NEGATIVE)
[2023-03-18] MEDS: Albumin 25% 25 GM/100 ML BOT IVPB SCH ×2 (04:00→08:30)
[2023-03-18] MEDS: Amiodarone 450 MG in Dextrose 5% in Water 250 ML IVPB SCH (04:56)
[2023-03-18 05:09] LABS: Platelet Count 120 10x3/uL (130-400)
[2023-03-18 05:12] LABS: Hematocrit 15.5 % (36.0-47.0); Hemoglobin 4.5 g/dL (12.0-16.0); Mean Corpuscular Hemoglobin 24.5 pg (27.0-31.0); Platelet Count 121 10x3/uL (130-400); RBC Distribution Width 20.3 % (11.5-14.5); Red Blood Cell (RBC) Count 1.84 mill/uL (4.20-5.40); White Blood Cell (WBC) Count 6.1 10x3/uL (4.8-10.8)
[2023-03-18] MEDS ORDERED: Magnesium 2 GM/50 ML(in water) 2 GM in Premix Bag 1 BAG IVPB SCH (05:15)
[2023-03-18 05:16] LABS: Delete Auto Diff?? YES; Manual Diff?? YES
[2023-03-18 05:25] LABS: Fibrinogen 153 mg/dL (253-463)
[2023-03-18 05:26] LABS: D-Dimer Test 2.79 *mcg/mL (0.27-0.43); INR-International Normal Ratio 4.8; PTT 53.4 sec (22.9-36.1); Prothrombin Time 47.3 sec (12.0-14.7)
[2023-03-18 05:33] LABS: Lactic Acid 9.4 mmol/L (0.5-2.2)
[2023-03-18 05:34] LABS: Mean Corpuscular Volume 84.2 fl (78.0-98.0)
[2023-03-18 05:38] LABS: ALT (SGPT) 52 U/L (8-55); AST (SGOT) 160 U/L (5-34); Alkaline Phosphatase 73 U/L (40-110); Anion Gap 22 mmol/L (10-20); BUN (Urea Nitrogen) 69 mg/dL (9.8-20.1); Calc. Creatinine Clearance 21 mL/min (70-130); Calcium 8.8 mg/dL (7.8-10.44); Carbon Dioxide 14 mmol/L (23-31); Chloride 111 mmol/L (98-107); Estimated GFR 20; Globulin 2.4 g/dL (2.4-3.5); Glucose 110 mg/dL (83-110); Potassium 4.8 mmol/L (3.5-5.1); Protein, Total 5.4 g/dL (5.8-8.1); Sodium 142 mmol/L (136-145)
[2023-03-18] MEDS ORDERED: Levothyroxine 100 MCG SDV IVP SCH (06:00)
[2023-03-18 06:01] LABS: Anisocytosis SLIGHT = 6-15 cells HPF (0-5); Band 6 % (5-11); CellaVision Operator ID lab.abc; Eosinophils 1 % (0-10); Hypochromia MODERATE=16-30 cells HPF (0-5); Lymphocytes 5 % (21-51); Monocytes 3 % (0-10); Neutrophil 86 % (42-75); Nucleated RBC (Manual Ct) 26 % (0); Platelet Adequacy Comment Platelets Decreased; Polychromasia SLIGHT = 2-3 cells HPF (0-2); Smudge Cells 3.8 %; Total Cell Count 104
[2023-03-18] MEDS ORDERED: Sodium Bicarb 50 MEQ/50 ML VIAL IVP SCH (06:30)
[2023-03-18 06:56] LABS: Actual Bicarbonate (HCO3a) 15.5 mEq/L (22-28); Base Excess (BEa) -8.3 mEq/L (-2.0 to +3.0); Carboxyhemoglobin (COHb) 1.4 gm% (0.0-3.0); Hematocrit-ABG 18 % (36.0-47.0); O2 Tension (PaO2), arterial 111.2 mmHg (> 70.0); Potassium - ABG Lab 5.01 mmol/L (3.70-5.30); pH, Arterial 7.417 (7.35-7.45)
[2023-03-18 06:58] LABS: Puncture Site LRA
[2023-03-18] MEDS ORDERED: Digoxin 0.5 MG/2 ML AMP SLOW IVP SCH (07:00)
[2023-03-18] MEDS ORDERED: Morphine 2 MG/ML VIAL SLOW IVP SCH (08:15)
[2023-03-18] MEDS ORDERED: Pantoprazole 40 MG VIAL IVP SCH ×2 (09:00)
[2023-03-18 09:16] VITALS: TEMP 97
[2023-03-18 09:29] VITALS: BP 103/74
[2023-03-18] MEDS ORDERED: Lorazepam 2 MG/ML VIAL SLOW IVP PRN (09:46)
[2023-03-18] MEDS ORDERED: Morphine 2 MG/ML VIAL SLOW IVP PRN (09:48)
[2023-03-18] MEDS ORDERED: Meropenem 1 GM in Sodium Chloride 0.9% 100 ML IVPB SCH (11:00)
[2023-03-18 11:56] LABS: Campy jejuni + coli by PCR Negative (Negative); STEC Shiga Toxin 1+2 Negative (Negative); Salmonella spp. by PCR Negative (Negative); Shigella spp + EIEC by PCR Negative (Negative)
[2023-03-19 09:20] LABS: CO2 Tension 24.6 mmHg (35.0-45.0)
[2023-03-20 20:36] LABS: Mycoplasma pneumoniae IgG AB 323 U/mL (0-99); Mycoplasma pneumoniae IgM AB Less than 770 U/mL (0-769)
== END 2023-03-18 10:20 | disposition expired | DRG 871 ==
LOC: ERS 17:12 → CCU 18:14
PROVIDERS: ADMIT Family Medicine; ATTEND Family Medicine
PROC: 06HY33Z Insertion of Infusion Device into Lower Vein, Percutaneous Approach (ICD-10-PCS; principal; 2023-03-17)
PROC: 30233K1 Transfusion of Nonautologous Frozen Plasma into Peripheral Vein, Percutaneous Approach (ICD-10-PCS; 2023-03-17)
PROC: 3E03329 Introduction of Other Anti-infective into Peripheral Vein, Percutaneous Approach (ICD-10-PCS; 2023-03-17)
PROC: 3E033XZ Introduction of Vasopressor into Peripheral Vein, Percutaneous Approach (ICD-10-PCS; 2023-03-17)
PROC: 30233J1 Transfusion of Nonautologous Serum Albumin into Peripheral Vein, Percutaneous Approach (ICD-10-PCS; 2023-03-17)
PROC: 4A033R1 Measurement of Arterial Saturation, Peripheral, Percutaneous Approach (ICD-10-PCS; 2023-03-18)
PROC: 30233N1 Transfusion of Nonautologous Red Blood Cells into Peripheral Vein, Percutaneous Approach (ICD-10-PCS; 2023-03-18)
PROC: 30233M1 Transfusion of Nonautologous Plasma Cryoprecipitate into Peripheral Vein, Percutaneous Approach (ICD-10-PCS; 2023-03-18)
DX: A41.9 Sepsis, unspecified organism (principal); D65 Disseminated intravascular coagulation [defibrination syndrome]; I21.A1 Myocardial infarction type 2; Z66 Do not resuscitate; Z51.5 Encounter for palliative care; I50.33 Acute on chronic diastolic (congestive) heart failure; J18.9 Pneumonia, unspecified organism; R65.21 Severe sepsis with septic shock; J96.21 Acute and chronic respiratory failure with hypoxia; N17.9 Acute kidney failure, unspecified; I13.0 Hypertensive heart and chronic kidney disease with heart failure and stage 1 through stage 4 chronic kidney disease, or unspecified chronic kidney disease; M86.8X7 Other osteomyelitis, ankle and foot; J44.0 Chronic obstructive pulmonary disease with (acute) lower respiratory infection; E03.9 Hypothyroidism, unspecified; K21.9 Gastro-esophageal reflux disease without esophagitis; E78.00 Pure hypercholesterolemia, unspecified; G89.29 Other chronic pain; M81.0 Age-related osteoporosis without current pathological fracture; G43.909 Migraine, unspecified, not intractable, without status migrainosus; F41.9 Anxiety disorder, unspecified; F31.9 Bipolar disorder, unspecified; I25.10 Atherosclerotic heart disease of native coronary artery without angina pectoris; R19.7 Diarrhea, unspecified; I27.20 Pulmonary hypertension, unspecified; I48.0 Paroxysmal atrial fibrillation; E88.09 Other disorders of plasma-protein metabolism, not elsewhere classified; Z20.822 Contact with and (suspected) exposure to COVID-19; I35.0 Nonrheumatic aortic (valve) stenosis; D50.0 Iron deficiency anemia secondary to blood loss (chronic); N18.30 Chronic kidney disease, stage 3 unspecified; L89.619 Pressure ulcer of right heel, unspecified stage; I70.213 Atherosclerosis of native arteries of extremities with intermittent claudication, bilateral legs; Y95 Nosocomial condition; Z82.49 Family history of ischemic heart disease and other diseases of the circulatory system; Z86.73 Personal history of transient ischemic attack (TIA), and cerebral infarction without residual deficits; Z98.890 Other specified postprocedural states; Z90.49 Acquired absence of other specified parts of digestive tract; Z95.1 Presence of aortocoronary bypass graft; Z98.51 Tubal ligation status; Z90.710 Acquired absence of both cervix and uterus; Z88.1 Allergy status to other antibiotic agents; Z88.5 Allergy status to narcotic agent; Z88.2 Allergy status to sulfonamides; Z88.8 Allergy status to other drugs, medicaments and biological substances; Z79.51 Long term (current) use of inhaled steroids; Z79.01 Long term (current) use of anticoagulants; Z79.899 Other long term (current) drug therapy; Z79.82 Long term (current) use of aspirin; Z87.891 Personal history of nicotine dependence; Z95.820 Peripheral vascular angioplasty status with implants and grafts; Z99.81 Dependence on supplemental oxygen; Z55.6 Problems related to health literacy
CPT/HCPCS: 36415; 36416; 36430; 36556; 36600; 71045; 74176; 76770; 80053; 80162; 81001; 82274; 82533; 82550; 82805; 83605; 83690; 83735; 83880; 84100; 84134; 84145; 84439; 84443; 84484; 85025; 85049; 85300; 85362; 85379; 85384; 85610; 85652; 85730; 86140; 86850; 86900; 86901; 87040; 87070; 87077; 87086; 87186; 87205; 87324; 87328; 87329; 87449; 87505; 87899; 93005; 93010; 94640; 94660; 94760; 96374; 96375; C9113; J0282; J2185; J2250; J2272; J2543; J2760; J2930; J3370; J3430; J3475; J3490; J7070; J7120; J7612; J7620; P9012; P9016; P9047; P9059; U0002